=== PATIENT | female | born 1935 | race Caucasian/White ===

== ENCOUNTER → 2018-08-25 10:57 | Outpatient (CLI) | payer MEDICARE, OTHER ==
[~2018-08-25 10:57] MED LIST: ASPIRIN81 MG PO; BETAPACE 80 MG80 MG PO; CLARITIN 10 MG10 MG PO; HYDROCHLOROTHIA25 MG PO; LEVOTHYROXINE125 MCG PO; LISINOPRIL2.5 MG PO; LOPERAMIDE HCL2 MG PO; METFORMIN HCL500 M1 PO; PLAVIX75 MG PO; VITAMIN D5000 UNIT PO; XARELTO15 MG PO; XARELTO20 MG PO
--- NOTE | 2018-08-30 10:45 | ST ---
PATIENT:MICHELE PARK MEDICAL RECORD: [id number] SEX: F LOCATION:[facility] ORDER #: ADMISSION DATE: 08/25/18 AGE OF PATIENT: 83 REFERRING PHYSICIAN: INTERPRETING PHYSICIAN: MAU SHEPPARD MD DATE OF SERVICE: 08/25/2018 PROCEDURE: Nuclear stress test. INDICATION: Angina, abnormal ECG, hypertension, diabetes, atrial fibrillation. The patient was exercised on standard Lexiscan protocol with 33 mCi of sestamibi injected at peak stress, 11 mCi were done previously for rest images. FINDINGS: Gated SPECT reveals preserved ejection fraction at 62% with good wall motioning and thickening and brightening throughout all segments. SPECT imaging Cardiolite was used as myocardial fusion agent. There are reversible changes apically and laterally, this includes basal, mid apical lateral segments as well as the apex itself. The degree of reversibility is mild to moderate. The amount of myocardial involved is moderate. OVERALL IMPRESSION: 1. This is an abnormal nuclear stress test, reversibility apically and laterally. 2. Gated SPECT reveals preserved ejection fraction greater than 60%. In this patient with ongoing symptomatology, the current scan does suggest the presence of hemodynamically significant coronary artery disease. We would proceed with coronary angiography as followup study. TRANSINT:[id number] Voice Confirmation ID: [id number] DOCUMENT ID: [id number] MAU SHEPPARD MD at 1045 CC: [id number] DICTATION DATE: 08/26/18 1020 DIGITAL MARKETING ASSISTANT: 08/27/18 0000 DEP CLI 08/25/[address] [address]
[2018-09-13 08:24] VITALS: BMI 27.5
== END | disposition home or self-care (01) ==
LOC: D.HCCARDIO 10:57
DX: I48.91 Unspecified atrial fibrillation (principal)

== ENCOUNTER 2018-09-06 09:34 | Outpatient (CLI) | payer MEDICARE, OTHER ==
[~2018-09-06] VITALS: Ht 162.6 cm; Wt 72.7 kg
--- NOTE | ~2018-09-06 | HEMODYNAMI ---
PATIENT:MICHELE PARK MEDICAL RECORD: [id number] : 35 LOCATION:[facility] ADMISSION DATE: 09/06/18 Generatedon:09/06/201812:57 Patient name: MICHELE PARK Patient #: [id number] SSN: : Date of study: 09/06/2018 Page: Of Hemodynamic Procedure Report Patient Data Patient Demographics Procedure consent was obtained First Name: MICHELE Gender: Female Last Name: XAVIER : 1935 [facility] Initial: AFTAB Age: 83 year(s) Patient #: [id number] Race: Unknown Additional ID: [id number] Contact details Address: [address] [place] [address] [facility] State: [place] City: [place] Zip code: [address] Past Medical History Allergies Allergen Reaction Date Comments Reported Codeine 09/06/2018 Admission Admission Data Admission Date: 09/06/2018 Admission Time: 9:34 Lab Results Lab Result Date: 09/06/2018 Lab Result Time: 10:05 Biochemistry Name Units Result Min Max BUN mg/dl 28 --(----)-* 7 18 Creatinine mg/dl 1.1 --(--*-)-- 0.6 1.3 CBC Name Units Result Min Max Hematocrit % 40 -*(----)-- 42 54 Hemoglobin g/dl 12.7 -*(----)-- 13.5 17.5 Procedure Procedure Types Cath Procedure Diagnostic Procedure LHC LHC w/Coronaries FFR/IVUS Intra-Coronary IVUS Initial Sedation Charges Moderate Sedation up to 15 minutes PCI Procedure Coronary Stent Coronary Stent Initial Peripheral Cath Diagnostic Procedure Thermal Technician Peripheral Procedures Rqjdi-Yotujcr-Rlh-Off Procedure Description Procedure Date Procedure Date: 09/06/2018 Procedure Start Time: 12:33 Procedure End Time: 12:55 Procedure Staff Name Function Cory Pinon MD Performing Physician Michael Avalos RT Monitor Kevin Barron RN Scada Operator Anne Marie Frank RT Scrub Armaan Lorigan RN Nurse Procedure Data Cath Procedure Fluoroscopy Diagnostic fluoroscopy Total fluoroscopy Time: 4.2 time: 4.2 min min Diagnostic fluoroscopy Total fluoroscopy dose: 680 dose: 680 mGy mGy Contrast Material Contrast Material Type Amount (ml) Isovue 300 97 Entry Location Entry Primary Successful Side Size Upsize Upsize Entry Closure Cortez ccessful Closure Location (Fr) 1 (Fr) 2 (Fr) Remarks Device Remarks Radial Right 6 Fr Mechanical artery Short Compression Femoral Right 5 Fr 6 Fr Exoseal artery Short Estimated blood loss: 10 ml Diagnostic catheters Device Type Used For End Catheter Placement DIAGNOSTIC [place] 110cm 5 Procedure Fr catheter ([id number]) MULTIPACK Pigtail 5 Fr Procedure catheter MULTIPACK JL 4.0 5Fr Procedure catheter MULTIPACK 3DRC 5Fr Procedure catheter Procedure Complications No complications Procedure Medications Medication Administration Route Dosage 0.9% NaCl I.V. 100 ml/hr Oxygen etCO2 Nasal cannula 2 l/min Heparin Flush Bag added to field 2 bags (1000units/500ml NS) Lidocaine 2% added to field 20 Radial Cocktail added to field 1 syringe (Verapomil 2mg/Nitro 400mcg/Heparin 1500units) Versed I.V. 1 mg Fentanyl I.V. 50 mcg Versed I.V. 1 mg Fentanyl I.V. 50 mcg Heparin Bolus I.V. 4000 units Integrilin (Bolus I.V. 6.8 ml 2mg/ml) Integrilin (Bolus wasted 3.2 ml 2mg/ml) Plavix P.O. 600 mg Radial Cocktail I.A. 1 syringe (Verapomil 2mg/Nitro 400mcg/Heparin 1500units) Hemodynamics Rest HGB: 12.7 (g/dl) Heart Rate: 102 (bpm) Snapshots Pre Cath Intra NCS Post Cath Vital Signs Time Heart Resp SPO2 etCO2 NIBP (mmHg) Rhythm Pain Sedation Rate (ipm) (%) (mmHg) Status Level (bpm) 12:03:50 95 19 95 0 136/75(106) A-Fib 0 (11) 10(A) , No pain 12:08:00 105 18 92 0 121/79(99) A-Fib 0 (11) 10(A) , No pain 12:12:08 107 17 98 15.8 130/76(106) A-Fib 0 (11) 10(A) , No pain 12:16:20 84 17 97 10.5 119/72(100) A-Fib 0 (11) 10(A) , No pain 12:20:25 90 16 98 27.1 127/78(99) A-Fib 0 (11) 10(A) , No pain 12:24:35 88 17 99 31.7 120/72(88) A-Fib 0 (11) 10(A) , No pain 12:28:43 88 15 97 35.4 105/73(85) A-Fib 0 (11) 10(A) , No pain 12:32:47 84 15 95 30.2 113/68(93) A-Fib 0 (11) 10(A) , No pain 12:36:53 92 22 95 30.1 99/68(78) A-Fib 0 (11) 10(A) , No pain 12:40:56 89 13 94 35.4 88/60(70) A-Fib 0 (11) 9(A) , No pain 12:44:56 91 12 92 36.9 108/59(86) A-Fib 0 (11) 9(A) , No pain 12:49:02 80 13 95 38.4 109/61(85) A-Fib 0 (11) 9(A) , No pain 12:53:06 97 14 97 36.9 110/72(101) A-Fib 0 (11) 9(A) , No pain Medications Time Medication Route Dose Verified Delivered Reason Not es Effectiveness by by 12:01:52 0.9% NaCl I.V. 100 Armaan Armaan Per physician ml/hr Ed Ward RN RN 12:02:04 Oxygen etCO2 2 l/min Armaan Armaan for low 02 sats Nasal Lorigan Ed cannula RN RN 12:02:15 Heparin Flush added 2 bags Armaan Armaan used for Bag to Lorigan Lorigan procedure (1000units/500ml field MAEYS RN NS) 12:02:25 Lidocaine 2% added 20ml Armaan Armaan for local to vial Lorigan Lorigan anesthetic field MAYES RN 12:02:37 Radial Cocktail added 1 Armaan Armaan used for (Verapomil to syringe Lorigan Lorigan procedure 2mg/Nitro field MAYES RN 400mcg/Heparin 1500units) 12:24:41 Versed I.V. 1 mg Armaan Armaan for sedation Lorigan Lorigan RN RN 12:24:51 Fentanyl I.V. 50 mcg Armaan Armaan for sedation Ed Ward RN RN 12:34:03 Versed I.V. 1 mg Armaan Armaan for sedation Ed Ward RN RN 12:34:07 Fentanyl I.V. 50 mcg Armaan Armaan for sedation Ed Ward RN RN 12:34:09 Radial Cocktail I.A. 1 Armaan Cory for (Verapomil syringe Ed Pinon MD vasodilation 2mg/Nitro RN 400mcg/Heparin 1500units) 12:47:53 Heparin Bolus I.V. 4000 Armaan Armaan for units Ed Ward anticoagulation RN RN 12:48:10 Integrilin I.V. 6.8 ml Armaan Armaan for (Bolus 2mg/ml) Ed Ward antiplatelet RN RN therapy 12:53:29 Integrilin wasted 3.2 ml Armaan Armaan to sharp's (Bolus 2mg/ml) Ed Ward RN RN 12:53:39 Plavix P.O. 600 mg Armaan Armaan for Ed Ward antiplatelet RN RN therapy Procedure Log Time Note 11:45:56 Kevin Barron RN sent for patient. Start room use. 11:48:45 Signed procedure consent form obtained from patient. 11:48:57 Time tracking: Regular hours (M-F 7:00 - 5:00) 11:49:00 Plan of Care:Hemodynamics will remain stable., Cardiac rhythm will remain stable., Comfort level will be maintained., Respiratory function will remain adequate., Patient/ family verbilizes understanding of procedure., Procedure tolerated without complication., Recovers from procedure without complications.. 11:49:01 Diagnostic Cath status Elective 11:49:08 H&P Date Dictated: 08/17/2018 Within 30 days and on chart., H&P Addendum completed by physician on day of procedure. (MUST COMPLETE FOR ALL OUTPATIENTS). 11:49:26 Patient allergic to Codeine 11:51:50 Patient received from Pre/Post Procedure Room to CCL 2 Alert and oriented. Tansferred to table in Supine position. 11:51:52 Warm blankets applied, and sandee hugger turned on for patient comfort. 11:51:52 Correct patient and procedure confirmed by team. 11:51:56 ECG and BP/O2 sat monitors applied to patient. 12:01:52 0.9% NaCl 100 ml/hr I.V. was administered by Armaan Ward RN; Per physician; 12:02:04 Oxygen 2 l/min etCO2 Nasal cannula was administered by Armaan Ward RN; for low 02 sats; 12:02:15 Heparin Flush Bag (1000units/500ml NS) 2 bags added to field was administered by Armaan Ward RN; used for procedure; 12:02:25 Lidocaine 2% 20ml vial added to field was administered by Armaan Ward RN; for local anesthetic; 12:02:37 Radial Cocktail (Verapomil 2mg/Nitro 400mcg/Heparin 1500units) 1 syringe added to field was administered by Armaan Ward RN; used for procedure; 12:02:43 Vital chart was started 12:04:59 Baseline sample Acquired. 12:05:10 Baseline sample Acquired. 12:05:18 Rhythm: atrial fibrillation 12:05:19 Full Disclosure recording started 12:05:20 Pre-procedure instructions explained to patient. 12:05:21 Pre-op teaching completed and patient verbalized understanding. 12:05:22 Family in waiting room. 12:05:24 Patient NPO since Midnight. 12:05:28 Is the patient allergic to Iodine/contrast media? No. 12:05:29 Is patient on blood thinner?Yes 12:05:36 If diabetic: On Metformin? Yes 12:05:38 If on Metformin: Last Dose? 09/04/2018 12:05:41 Previous problem with sedation/anesthesia? No ? 12:05:43 Snore? No 12:05:44 Sleep apnea? No 12:05:45 Deviated septum? No 12:05:45 Opens mouth fully? Yes 12:05:46 Sticks out tongue? Yes 12:05:48 Airway obstruction? No ? 12:05:51 Dentures? No ? 12:05:54 Modified Nazario's test Ulnar < 7 seconds 12:05:55 Patient pain scale 0/10 ?. 12:06:01 IV patent on arrival in left wrist with 0.9% NaCl at [facility]. 12:06:45 Lab Result : BUN 28 mg/dl 12:06:45 Lab Result : Creatinine 1.1 mg/dl 12:06:45 Lab Result : Hemoglobin 12.7 g/dl 12:06:45 Lab Result : Hematocrit 40 % 12:06:47 Lab results completed and on chart. 12:06:51 Right Radial & Right Groin area was prepped with chlora-prep and draped in sterile fashion 12:06:52 Alarms reviewed by R. N. 12:06:53 Sharps counted by scrub and verified by R.N. 12:06:55 Use device set Radial Dx or PCI 12:06:57 ACIST Syringe (80694) opened to sterile field. 12:06:57 Medline Cath Pack ([id number]) opened to sterile field. 12:06:58 Bag Decanter (2002S) opened to sterile field. 12:06:58 ACIST Hand Control (39068) opened to sterile field. 12:06:59 ACIST Manifold (77072) opened to sterile field. 12:06:59 Tegaderm 4 x 4 (1626W) opened to sterile field. 12:07:00 MBrace Wrist Support ([id number]) opened to sterile field. 12:07:01 SHEATH 6FR Slender (98-1060) opened to sterile field. 12:07:02 DIAGNOSTIC WIRE .035 260cm J wire (112691) opened to sterile field. 12:10:37 Zero performed for pressure channel P1 12:23:07 Physician arrived 12:23:07 --------ALL STOP TIME OUT------ 12:23:08 Final Timeout: patient, procedure, and site verified with staff and physician. All members of the team are in agreement. 12:23:09 Right groin site verified by team. 12:23:13 Fire Safety Assessment: A--An alcohol-based skin anteseptic being used preoperatively., C--Open oxygen or nitrous oxide is being used., D--An ESU, laser, or fiber-optic light is being used. 12:23:16 Physical assessment completed. ASA score P 2 - A patient with mild systemic disease as per Cory Pinon MD. 12:23:19 Sedation plan: IV Moderate Sedation Medication:Versed, Fentanyl 12:24:41 Versed 1 mg I.V. was administered by Armaan Ward RN; for sedation; 12:24:51 Fentanyl 50 mcg I.V. was administered by Armaan Ward RN; for sedation; 12:33:14 Procedure started. 12:33:17 Local anesthetic to right radial artery with Lidocaine 2% by Cory Pinon MD.INITIAL ACCESS ONLY 12:33:23 A 6 Fr Short sheath was inserted into the Right Radial artery 12:34:03 Versed 1 mg I.V. was administered by Armaan Ward RN; for sedation; 12:34:07 Fentanyl 50 mcg I.V. was administered by Armaan Ward RN; for sedation; 12:34:09 Radial Cocktail (Verapomil 2mg/Nitro 400mcg/Heparin 1500units) 1 syringe I.A. was administered by Cory Pinon MD; for vasodilation; 12:34:53 A DIAGNOSTIC [place] 110cm 5 Fr catheter ([id number]) was advanced over the wire and used for Procedure. 12:36:40 Catheter removed. 12:36:44 unable to advance catheter. Moving to femoral approach. 12:36:50 Use device set Multipack Set 12:36:55 SHEATH 5FR [place] (LAT143) opened to sterile field. 12:36:56 DIAGNOSTIC Multipack 5Fr catheter set ([id number]) opened to sterile field. 12:37:02 Local anesthetic to right femoral artery with Lidocaine 2% by Cory Pinon MD.ADDITIONAL ACCESS 12:37:12 A 5 Fr sheath was inserted into the Right Femoral artery 12:37:19 A MULTIPACK Pigtail 5 Fr catheter was advanced over the wire and used for Procedure. 12:37:30 Procedure type changed to Cath procedure, Diagnostic procedure, LHC, LHC w/Coronaries, FFR/IVUS, Intra-Coronary IVUS Initial, Sedation Charges, Moderate Sedation up to 15 minutes, PCI procedure, Coronary Stent, Coronary Stent Initial, Peripheral Cath Diagnostic Procedure, Thermal Technician Peripheral Procedures, Gnypy-Sswlgsy-Ksx-Off 12:39:04 LV gram done using DONOVAN 12:39:07 Injector settings: Ml/sec: 10, Volume: 20, 12:39:09 LV hemodynamics recorded. 12:39:30 EF : 60 % 12:39:43 Abdominal angiogram w/ runoff was performed. 12:40:09 Left leg runoff performed. 12:40:10 Right leg runoff performed. 12:40:44 Catheter exchanged over wire. 12:40:51 A MULTIPACK JL 4.0 5Fr catheter was advanced over the wire and used for Procedure. 12:41:36 LCA angiography performed. 12:42:14 Catheter exchanged over wire. 12:42:19 A MULTIPACK 3DRC 5Fr catheter was advanced over the wire and used for Procedure. 12:43:03 RCA angiography performed. 12:43:43 SHEATH 6FR [place] (DNV954) opened to sterile field. 12:43:52 INFLATOR Merit BasixCompak (XU0028) opened to sterile field. 12:44:05 CHOICE PT Extra Support 182cm wire ([id number]) opened to sterile field. 12:44:55 Catheter removed. 12:45:01 Sheath upsized to a 6 Fr Short. 12:45:57 GUIDE 6FR AR 2.0 SH catheter ([id number]) opened to sterile field. 12:45:57 Gary [place] Eagley[place] IVUS Catheter (22345U) opened to sterile field. 12:46:07 6 Fr AR 2 SH guide catheter was inserted over the wire 12:46:12 CHOICE PT ES wire advanced. 12:46:55 Wire advanced across lesion. 12:46:57 IVUS catheter advanced over wire. 12:47:27 IVUS pass to RCA lesion performed. 12:47:53 Heparin Bolus 4000 units I.V. was administered by Armaan Ward RN; for anticoagulation; 12:48:10 Integrilin (Bolus 2mg/ml) 6.8 ml I.V. was administered by Armaan Ward RN; for antiplatelet therapy; 12:49:04 IVUS catheter removed over wire. 12:49:47 Inflate balloon Inflation number: 1 A INTEGRITY RX 3.5 x 15 stent ([id number]) was prepped and advanced across the Mid RCA, then inflated to 13 BENJI for 0:10 (min:sec). 12:49:55 Stent catheter was removed intact over wire. 12:49:56 Wire removed. 12:49:57 Guide catheter removed. 12:50:46 TR BAND Standard ([id number]) opened to sterile field. 12:50:47 EXOSEAL 6Fr (EX600) opened to sterile field. 12:51:02 Sheath removed intact; hemostasis achieved with Exoseal to the Right Femoral artery. 12:51:10 Sheath removed intact; hemostasis achieved with Mechanical Compression to the Right Radial artery. 12:51:11 Procedure ended.(Physican Out) 12:53:29 Integrilin (Bolus 2mg/ml) 3.2 ml wasted was administered by Armaan Ward RN; to sharp's; 12:53:39 Plavix 600 mg P.O. was administered by Armaan Ward RN; for antiplatelet therapy; 12:53:40 Fluoroscopy time 04.20 minutes. 12:53:51 Fluoroscopy dose: 680 mGy 12:53:51 Flurop Dose total: 680 12:53:57 Contrast amount:Isovue 300 97ml. 12:53:58 Sharps counted by scrub and verified by R.N. 12:54:04 TR band inflated with 12cc of air. 12:54:05 Insertion/operative site no bleeding no hematoma. 12:54:07 Post-op/insertion site Right Femoral artery dressed using a 4 x 4 and Tegaderm. 12:54:10 Post right femoral artery:stable, soft, clean and dry 12:54:12 Post Procedure Pulses reassessed and unchanged 12:54:15 Post-procedure physical assessment completed. ASA score P 2 - A patient with mild systemic disease as per Cory Pinon MD. 12:54:23 Post procedure rhythm: unchanged. 12:54:25 Estimated blood loss: 10 ml 12:54:26 Post procedure instruction explained to patient.Patient verbalizes understanding. 12:54:26 Patient needs reinforcement of post procedure teaching. 12:55:26 Procedure and supply charges have been captured, reviewed, submitted and are correct. 12:55:32 Procedure Complication : No complications 12:55:34 Vital chart was stopped 12:55:34 See physician's report for complete and final results. 12:55:36 Report given to Pre/Post Procedure Room. 12:55:39 Patient transfered to Pre/Post Procedure Room with Stretcher. 12:55:41 Procedure ended. 12:55:41 Full Disclosure recording stopped 12:55:45 End room use (Document Last) Intervention Summary Intervention Notes Time ActionType Lesion and Equipment Action# Pressure Duration Attributes Used 12:49:47 Inflate Mid RCA INTEGRITY RX 1 13 00:10 balloon 3.5 x 15 stent ([id number]) Device Usage Item Name Manufacture Quantity Catalog Number Hospital Part Current Mini mal Lot# / Charge Number Stock Stock Serial# Code ACIST Acist 1 66130 410542 825661 266913 20 Syringe Medical (88709) Systems Inc Medline Cath Medline 1 [id number] 617071 25893 116097 5 Pack ([id number]) Bag Decanter Microtek 1 2001S 142405 87717 256118 5 (2001S) Medical Inc. ACIST Hand Acist 1 59076 260093 713144 952693 5 Control Medical (42961) Systems Inc ACIST Acist 1 72170 006621 834409 667544 5 Manifold Medical (40818) Systems Inc Tegaderm 4 x 3M 1 1626W 887545 343281 348650 5 4 (1626W) MBrace Wrist Advanced 1 140-0250-00 048704 81334 202628 5 Support Vascular ([id number]) Dynamics SHEATH 6FR Terumo 1 [id number] 569150 106096 305882 5 Slender (80-1060) DIAGNOSTIC St Jayce 1 819118 610238 239461 067725 30 WIRE .035 260cm J wire (222897) DIAGNOSTIC Terumo 1 40-5013 622091 096810 577701 5 [place] 110cm 5 Fr catheter (946912) SHEATH 5FR Terumo 1 HXB230 212867 174802 022383 5 [place] (EFG797) DIAGNOSTIC Cardinal 1 DA2731 788773 03923 278909 30 Multipack Health 5Fr catheter set (OP4203) MULTIPACK Cardinal 1 922653 5 Pigtail 5 Fr Health catheter MULTIPACK JL Cardinal 1 970725 5 4.0 5Fr Health catheter MULTIPACK Cardinal 1 614167 5 3DRC 5Fr Health catheter SHEATH 6FR Terumo 1 CZP475 956322 375295 260027 40 [place] (LIL129) INFLATOR Merit 1 GF1059 465688 078399 164973 15 [place] Medical BasixCompak (NS5943) CHOICE PT [place] 1 [id number] 739120 857209 957363 5 Extra Scientific Support 182cm wire (1601443S0) GUIDE 6FR AR Medtronic 1 [id number] 112697 19159 131329 1 2.0 SH catheter ([id number]) Gary Gary 1 56454Y 836781 004432 135229 8 [place] Eagley[place] IVUS Catheter (64113Z) INTEGRITY RX Medtronic 1 [id number] 896741 561655 206051 5 [id number] 3.5 x 15 stent ([id number]) TR BAND Terumo 1 [id number] 052310 741874 414772 40 Standard ([id number]) EXOSEAL 6Fr Cardinal 1 EX600 261214 609876 564165 10 (EX600) Health Signature Audit [place] Stage Time Signature Unsigned Intra-Procedure 09/06/2018 Michael Avalos 12:56:58 PM RT(R) Signatures Monitor : Michael Avalos RT Signature : Date : Time : [address] [address]
[2018-09-06] MEDS ORDERED: LEVOTHYROXINE125 MCG PO (09:56)
[2018-09-06] MEDS ORDERED: METFORMIN HCL500 M1 PO (09:57)
[2018-09-06] MEDS ORDERED: VITAMIN D5000 UNIT PO (09:57)
[2018-09-06] MEDS ORDERED: HYDROCHLOROTHIA25 MG PO (09:57)
[2018-09-06] MEDS ORDERED: CLARITIN 10 MG10 MG PO (09:57)
[2018-09-06] MEDS ORDERED: LOPERAMIDE HCL2 MG PO (09:58)
[2018-09-06] MEDS ORDERED: LISINOPRIL2.5 MG PO (09:58)
[2018-09-06] MEDS ORDERED: XARELTO15 MG PO (09:59)
[2018-09-06] MEDS ORDERED: BETAPACE 80 MG80 MG PO (09:59)
[2018-09-06 10:11] VITALS: BP 136/78; Ht 162.6 cm; Wt 72.7 kg
[2018-09-06 10:29] LABS: ANION GAP 12.3 mmol/L (8-16); CALCIUM 9.1 mg/dL (8.5-10.1); CARBON DIOXIDE 30.3 mmol/L (21.0-32.0); CREATININE - SERUM 1.1 mg/dL (0.6-1.3); POTASSIUM - SERUM 3.6 mmol/L (3.5-5.1)
[2018-09-06 11:44] LABS: BASOPHILS 0.1 % (0-2); EOSINOPHILS 1.5 % (0-7); HEMOGLOBIN 12.7 g/dL (12-16); IMMATURE GRANULOCYTES 0.3 % (0-5); LYMPHOCYTES 14.8 % (15-50); MCH 27.7 pg (26.0-34.0); MCHC 31.8 g/dL (31.0-37.0); MCV 87.3 fL (80.0-100.0); MEAN PLATELET VOLUME 11.5 fL (7.4-10.4); MONOCYTES 10.7 % (2-11); NEUTROPHILS 72.6 % (40-80); PLATELET COUNT 314 10x3/uL (130-400); RBC 4.58 10x6/uL (4.00-5.40); RDW 14.9 % (11.5-14.5); WBC 7.8 10x3/uL (4.8-10.8)
[2018-09-06] MEDS ORDERED: PLAVIX75 MG PO (13:18)
--- NOTE | 2018-09-06 13:25 | NUR ---
2L NC, NO RESP DISTRESS. RIGHT WRIST TR BAND AND RIGHT GROIN 6F EXOSEAL CDI, NO BLEEDING OR HEMATOMA NOTED TO EITHER SITE. NO C/O PAIN OR NAUSEA. VSS. FAMILY AT BEDSIDE, CALL LIGHT WITHIN REACH.
--- NOTE | 2018-09-06 13:55 | NUR ---
RIGHT WRIST TR BAND AND RIGHT GROIN 6F EXOSEAL CDI, NO BLEEDING OR HEMATOMA NOTED TO EITHER SITE. 2L NC WITH NO RESP DISTRESS. DENIES ANY NEEDS. VSS. WILL CONTINUE TO MONITOR.
--- NOTE | 2018-09-06 14:10 | NUR ---
RESTING QUIETLY WITH EYES CLOSED. RIGHT WRIST TR BAND AND RIGHT GROIN 6F EXOSEAL CDI, NO BLEEDING OR HEMATOMA NOTED TO EITHER SITE. DENIES ANY NEEDS. VSS. WILL CONTINUE TO MONITOR.
--- NOTE | 2018-09-06 14:40 | NUR ---
CONTINUES TO REST COMFORTABLY WITH NO C/O. RIGHT WRIST TR BAND AND RIGHT GROIN 6F EXOSEAL CDI, NO BLEEDING OR HEMATOMA NOTED. NO NEEDS. VOICED. VSS. CALL LIGHT WITHIN REACH.
--- NOTE | 2018-09-06 16:15 | NUR ---
HOB ELEVATED 30 DEGREES. RIGHT GROIN 6F EXOSEAL CDI, NO BLEEDING NOTED. 3CC OF AIR REMOVED FROM TR BAND WITH NO BLEEDING NOTED. REFUSED FOOD AT THIS TIME. VSS. WILL CONTINUE TO MONITOR CLOSELY.
--- NOTE | 2018-09-06 16:30 | NUR ---
3CC OF AIR REMOVED FROM TR BAND WITH NO BLEEDING NOTED.
--- NOTE | 2018-09-06 16:45 | NUR ---
2CC OF AIR REMOVED FROM TR BAND WITH NO BLEEDING NOTED. LEFT PIV D/C'D WITH CATHETER INTACT, BAND AID TO SITE. UP TO BEDSIDE TO GET DRESSED.
--- NOTE | 2018-09-06 16:55 | NUR ---
REMAINING AIR REMOVED FROM TR BAND WITH N OBLEEDING NOTED. DRESSING PLACED TO SITE. DISCHARGE INSTRUCTIONS GIVEN ALONG WITH PLAVIX PRESCRIPTION, VERBALIZED UNDERSTANDING.
--- NOTE | 2018-09-06 17:10 | NUR ---
TAKEN OUT VIA WHEELCHAIR BY CATH REHAB MANAGER. LEFT FACILITY WITH FAMILY AND ALL PERSONAL BELONGINGS.
--- NOTE | 2018-09-13 11:18 | OP ---
PATIENT NAME: MICHELE PARK MEDICAL RECORD: [id number] :35 LOCATION:[facility] ADMISSION DATE: SURGEON: MAU SHEPPARD MD DATE OF OPERATION: 09/06/2018 PROCEDURES: 1. Aortofemoral runoff. 2. Abdominal aortography. INDICATION: Claudication and peripheral vascular disease. PROCEDURE PERFORMED: After informed consent was obtained and after a detailed description of risks, benefits as well as alternative therapies the patient elected to proceed with angiogram and aortofemoral runoff. The right femoral area was prepped and draped in normal sterile fashion. Right femoral artery had a preexisting sheath from cardiac intervention. All catheters exchanged through this sheath. FINDINGS: Abdominal aortography was performed. The catheter was pulled down for aortofemoral runoff. Abdominal aortography reveals no significant abdominal aortic disease, no dissection or annulus formation. RIGHT LEG: A. Iliac: The common internal and external iliacs have moderate irregularities, but no flow-limiting stenosis. B. Femoral system: The common and deep femoral are widely patent. Superficial femoral was totally occluded from the ostium all the way to the extreme distal end of this. This fills via collaterals off the deep femoral system. C. The popliteal infrapopliteal vessels are diffusely diseased, giving 2-vessel runoff through the peroneal and posterior tibial. LEFT LEG: A. Iliac: The common internal and external iliacs have moderate irregularities, but no flow-limiting stenosis. B. Femoral system: The common and deep femoral are widely patent. Superficial femoral was totally occluded from the ostium all the way to the extreme distal end of this. This fills via collaterals off the deep femoral system. C. The popliteal infrapopliteal vessels are diffusely diseased, giving 2-vessel runoff through the peroneal and posterior tibial. 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 TRANSINT:[id number] Voice Confirmation ID: [id number] DOCUMENT ID: [id number] MAU SHEPPARD MD at 1118 CC: [id number] DICTATION DATE: 09/06/18 1300 SPOUT POSITIONER: 09/06/18 1331 DEP CLI 09/06/18 [place] [id number] [place], [place] [id number]
--- NOTE | 2018-09-13 11:18 | OP ---
PATIENT NAME: MICHELE PARK MEDICAL RECORD: [id number] :35 LOCATION:D.CAT ADMISSION DATE: SURGEON: MAU SHEPPARD MD DATE OF OPERATION: 09/06/2018 DATE OF SERVICE: 09/06/2018 PROCEDURES: 1. PTCA stent RCA. 2. Intravascular ultrasound RCA. 3. Left heart catheterization. 4. Selective coronary angiography. 5. Left ventriculogram. INDICATION: Angina and coronary artery disease. PROCEDURE IN DETAIL: After informed consent was obtained and after a detailed description of the risks, benefits as well as alternative therapies, the patient elected to proceed with angiogram and angioplasty. The right femoral area was prepped and draped in normal sterile fashion. Right femoral artery was cannulated via modified Seldinger technique with placement of 6-Italian sheath. All catheters exchanged through this sheath. FINDINGS: Left ventriculogram was performed in the standard 30-degree DONOVAN view, reveals good cardiac wall motion throughout all segments. Overall ejection fraction estimated at 65%. SELECTIVE CORONARY ANGIOGRAPHY: 1. Left main has a questionable stenosis in the mid vessel that would be better delineated by intravascular ultrasound. 2. Left anterior descending has 90% stenosis in the mid vessel. 3. Left circumflex has at least 70% stenosis in the mid vessel. 4. Right coronary has a hazy area of stenosis that was questionable. Intravascular ultrasound revealed this is greater than 70%. PTCA STENT OF THE RCA: The stent used was a 3.5 x 15-mm Integrity. Result was 0% residual stenosis. OVERALL IMPRESSION: Successful percutaneous transluminal coronary angioplasty stent of the right coronary artery going from greater than 70% initial stenosis to 0% residual. PLAN: PTCA stent of the LAD and circumflex in the near future. TRANSINT:[id number] Voice Confirmation ID: [id number] DOCUMENT ID: [id number] MUA SHEPPARD MD at 1118 CC: [id number] DICTATION DATE: 09/06/18 1300 TECHNICAL ADMINISTRATIVE ASSISTANT: 09/06/18 1331 DEP CLI 09/06/18 [place] [id number] [place] [id number]
== END 2018-09-06 17:10 | disposition home or self-care (01) ==
LOC: D.CATH 09:34
PROVIDERS: Internal Medicine Interventional Cardiology
DX: I25.119 Atherosclerotic heart disease of native coronary artery with unspecified angina pectoris (principal); I70.213 Atherosclerosis of native arteries of extremities with intermittent claudication, bilateral legs; I70.92 Chronic total occlusion of artery of the extremities; Z01.812 Encounter for preprocedural laboratory examination

== ENCOUNTER 2018-09-13 07:50 | Outpatient (CLI) | payer MEDICARE, OTHER ==
[~2018-09-13] VITALS: Ht 162.6 cm; Wt 72.7 kg
--- NOTE | ~2018-09-13 | HEMODYNAMI ---
PATIENT:MICHELE PARK MEDICAL RECORD: [id number] : 35 LOCATION:TAVO ADMISSION DATE: 09/13/18 Generatedon:09/13/201811:32 Patient name: MICHELE PARK Patient #: [id number] SSN: : Date of study: 09/13/2018 Page: Of Hemodynamic Procedure Report Patient Data Patient Demographics Procedure consent was obtained First Name: MICHELE Gender: Female Last Name: XAVIER : 1935 [facility] Initial: AFTAB Age: 83 year(s) Patient #: [id number] Race: Unknown Additional ID: [id number] Contact details Address: [address] [place] [address] [facility] State: [place] City: [place] Zip code: [address] Past Medical History Allergies Allergen Reaction Date Comments Reported Codeine 09/06/2018 Other allergy 09/13/2018 PCN, POTASSIUM, CODEINE, HYDROCODONE Admission Admission Data Admission Date: 09/13/2018 Admission Time: 7:50 Lab Results Lab Result Date: 09/13/2018 Lab Result Time: 0:00 Biochemistry Name Units Result Min Max BUN mg/dl 20 --(----)*- 7 18 Creatinine mg/dl 1 --(--*-)-- 0.6 1.3 CBC Name Units Result Min Max Hematocrit % 36.5 *-(----)-- 42 54 Hemoglobin g/dl 11.6 *-(----)-- 13.5 17.5 Procedure Procedure Types Cath Procedure Diagnostic Procedure FFR/IVUS Intra-Coronary IVUS Initial PCI Procedure Coronary Stent Coronary Stent Initial x2 Procedure Description Procedure Date Procedure Date: 09/13/2018 Procedure Start Time: 11:13 Procedure End Time: 11:30 Procedure Staff Name Function Cory Pinon MD Performing Physician Anne Marie Frank RT Monitor Michael Avalos RT Scrub Neptali Roland RN Nurse Kevin Barron RN Therapeutic Dietitian Procedure Data Cath Procedure Fluoroscopy Diagnostic fluoroscopy Total fluoroscopy Time: 5.4 time: 5.4 min min Diagnostic fluoroscopy Total fluoroscopy dose: 545 dose: 545 mGy mGy Contrast Material Contrast Material Type Amount (ml) Isovue 300 107 Entry Location Entry Primary Successful Side Size Upsize Upsize Entry Closure Succes sful Closure Location (Fr) 1 (Fr) 2 (Fr) Remarks Device Remarks Femoral Left 6 Fr Exoseal artery Short Estimated blood loss: 10 ml Procedure Complications No complications Procedure Medications Medication Administration Route Dosage Oxygen etCO2 Nasal cannula 2 l/min Lidocaine 2% added to field 20 Heparin Flush Bag added to field 2 bags (1000units/500ml NS) 0.9% NaCl I.V. 100 ml/hr Versed I.V. 1 mg Fentanyl I.V. 50 mcg Versed I.V. 1 mg Fentanyl I.V. 50 mcg Heparin Bolus I.V. 4000 units Versed I.V. 1 mg Hemodynamics Rest HGB: 11.6 (g/dl) Heart Rate: 103 (bpm) Snapshots Pre Cath Intra NCS Post Cath Vital Signs Time Heart Resp SPO2 etCO2 NIBP (mmHg) Rhythm Pain Sedation Rate (ipm) (%) (mmHg) Status Level (bpm) 10:52:48 96 15 97 12.8 152/90(107) A-Fib 0 (11) 10(A) , No pain 10:57:10 98 15 97 14.3 145/75(117) A-Fib 0 (11) 10(A) , No pain 11:01:26 98 17 97 14.3 148/90(120) A-Fib 0 (11) 10(A) , No pain 11:05:42 98 14 94 0 136/78(104) A-Fib 0 (11) 10(A) , No pain 11:09:48 102 12 93 0 125/83(95) A-Fib 0 (11) 9(A) , No pain 11:14:00 88 14 94 15.8 127/85(107) A-Fib 0 (11) 9(A) , No pain 11:18:14 102 13 94 0 126/73(93) A-Fib 0 (11) 10(A) , No pain 11:22:28 96 14 98 34.7 133/78(103) A-Fib 0 (11) 9(A) , No pain 11:26:42 87 15 97 0 122/75(86) A-Fib 0 (11) 10(A) , No pain Medications Time Medication Route Dose Verified Delivered Reason Notes Effectiveness by by 10:53:12 Oxygen etCO2 2 Cory Buffie used for Nasal l/min Kathrin Roland RN procedure cannula 10:53:19 Lidocaine 2% added 20ml Cory Cory for local to vial Kathrin Pinon MD anesthetic field 10:53:26 Heparin Flush added 2 Cory Cory used for Bag to bags Kathrin Pinon MD procedure (1000units/500ml field NS) 10:53:35 0.9% NaCl I.V. 100 Cory Buffie Per physician ml/hr Kathrin Roland RN 11:06:15 Versed I.V. 1 mg Ocry Buffie for sedation Kathrin Roland RN 11:06:21 Fentanyl I.V. 50 Cory Buffie for sedation mcg Kathrin Roland RN 11:09:46 Versed I.V. 1 mg Cory Buffie for sedation Kathrin Roland RN 11:09:50 Fentanyl I.V. 50 Cory Buffie for sedation mcg Kathrin Roland RN 11:14:24 Heparin Bolus I.V. 4000 Cory Buffie for verif ied units Kathrin Roland RN anticoagulation with dr pinon 11:22:20 Versed I.V. 1 mg Cory Buffie for sedation Kathrin Roland RN Procedure Log Time Note 10:12:53 Signed procedure consent form obtained from patient. 10:12:55 Diagnostic Cath status Elective 10:12:55 Time tracking: Regular hours (M-F 7:00 - 5:00) 10:13:00 Plan of Care:Hemodynamics will remain stable., Cardiac rhythm will remain stable., Comfort level will be maintained., Respiratory function will remain adequate., Patient/ family verbilizes understanding of procedure., Procedure tolerated without complication., Recovers from procedure without complications.. 10:13:05 H&P Date Dictated: 09/13/2018 New H&P dictated by physician.. 10:14:34 Patient allergic to Other allergyPCN, POTASSIUM, CODEINE, HYDROCODONE 10:15:09 Lab Result : Creatinine 1 mg/dl 10:15:09 Lab Result : BUN 20 mg/dl 10:15:09 Lab Result : Hemoglobin 11.6 g/dl 10:15:09 Lab Result : Hematocrit 36.5 % 10:36:17 Kevin Barron RN sent for patient. Start room use. 10:41:40 Patient received from Pre/Post Procedure Room to CCL 1 Alert and oriented. Tansferred to table in Supine position. 10:41:41 Warm blankets applied, and sandee hugger turned on for patient comfort. 10:41:41 Correct patient and procedure confirmed by team. 10:41:42 ECG and BP/O2 sat monitors applied to patient. 10:51:34 Vital chart was started 10:51:35 Baseline sample Acquired. 10:51:38 Rhythm: atrial fibrillation 10:51:39 Full Disclosure recording started 10:51:40 Pre-procedure instructions explained to patient. 10:51:40 Pre-op teaching completed and patient verbalized understanding. 10:51:41 Family in patients room. 10:51:43 Patient NPO since Midnight. 10:51:44 Is patient on blood thinner?Yes 10:51:46 ACC The patient was administered the following blood thiners within the last 24 hours: ACCPlavix 10:51:47 Patient diabetic? Yes. 10:51:48 If diabetic: On Metformin? Yes 10:51:53 If on Metformin: Last Dose? 09/10/2018 10:51:56 Previous problem with sedation/anesthesia? No ? 10:51:56 Snore? Yes 10:51:57 Sleep apnea? No 10:51:58 Deviated septum? No 10:51:59 Opens mouth fully? Yes 10:51:59 Sticks out tongue? Yes 10:52:02 Airway obstruction? No ? 10:52:06 Dentures? Yes IN TIGHT 10:52:16 Pre procedure: left dorsailis pedis pulse 1+ Palpable, but thready & weak; easily obliterated 10:52:19 Patient pain scale 0/10 ?. 10:52:24 IV patent on arrival in left antecubital with 0.9% NaCl at [facility]. 10:52:26 Lab results completed and on chart. 10:52:30 Left groin area was prepped with chlora-prep and draped in sterile fashion 10:52:30 Alarms reviewed by R. N. 10:52:31 Sharps counted by scrub and verified by R.N. 10:52:42 Use device set CATH PACK 10:52:44 ACIST Syringe (62903) opened to sterile field. 10:52:44 ACIST Hand Control (90417) opened to sterile field. 10:52:44 ACIST Manifold (67364) opened to sterile field. 10:52:45 Medline Cath Pack ([id number]) opened to sterile field. 10:52:45 Bag Decanter (2002S) opened to sterile field. 10:52:46 DIAGNOSTIC WIRE .035 260cm J wire (671811) opened to sterile field. 10:53:00 SHEATH 6FR [place] (YES020) opened to sterile field. 10:53:00 INFLATOR Merit BasixCompak (UW8127) opened to sterile field. 10:53:00 CHOICE PT Extra Support 182cm wire ([id number]) opened to sterile field. 10:53:12 Oxygen 2 l/min etCO2 Nasal cannula was administered by Neptali Roland RN; used for procedure; 10:53:19 Lidocaine 2% 20ml vial added to field was administered by Cory Pinon MD; for local anesthetic; 10:53:26 Heparin Flush Bag (1000units/500ml NS) 2 bags added to field was administered by Cory Pinon MD; used for procedure; 10:53:35 0.9% NaCl 100 ml/hr I.V. was administered by Neptali Roland RN; Per physician; 10:55:12 Bodfish Derry Eagleye IVUS Catheter (03579Y) opened to sterile field. 10:55:13 GUIDE 6FR XBLAD 3.5 SH catheter ([id number]) opened to sterile field. 10:59:25 Zero performed for pressure channel P1 11:05:12 --------ALL STOP TIME OUT------ 11:05:13 Final Timeout: patient, procedure, and site verified with staff and physician. All members of the team are in agreement. 11:05:15 Left groin site verified by team. 11:05:18 Fire Safety Assessment: A--An alcohol-based skin anteseptic being used preoperatively., C--Open oxygen or nitrous oxide is being used., D--An ESU, laser, or fiber-optic light is being used. 11:05:21 Physical assessment completed. ASA score P 2 - A patient with mild systemic disease as per Cory Pinon MD. 11:05:25 Sedation plan: IV Moderate Sedation Medication:Versed, Fentanyl 11:06:15 Versed 1 mg I.V. was administered by Neptali Roland RN; for sedation; 11:06:21 Fentanyl 50 mcg I.V. was administered by Neptali Roland RN; for sedation; 11::46 Versed 1 mg I.V. was administered by Neptali Roland RN; for sedation; 11::50 Fentanyl 50 mcg I.V. was administered by Neptali Roland RN; for sedation; 11::47 Procedure started. 11:13:09 Local anesthetic to left femerol artery with Lidocaine 2% by Cory Pinon MD.INITIAL ACCESS ONLY 11:13:18 A 6 Fr Short sheath was inserted into the Left Femoral artery 11:13:31 6 Fr XBLAD 3.5 SH guide catheter was inserted over the wire 11:14:24 Heparin Bolus 4000 units I.V. was administered by Neptali Roland RN; for anticoagulation; verified with dr pinon 11:15:11 CHOICE ES 182 wire advanced. 11:15:16 Wire advanced across lesion. 11:16:10 IVUS catheter advanced over wire. 11:16:33 IVUS PASS TO LMCA AND CIRC LESION PERFORMED 11:16:38 IVUS catheter removed over wire. 11:18:01 Place stent Inflation Number: 1 A DONOVAN RX 3.0 x 15 stent ([id number]) was prepped and advanced across the Prox CX. The stent was deployed at 13 BENJI for 0:10 (min:sec). 11:18:33 Stent catheter was removed intact over wire. 11:18:38 Wire redirected to LAD. 11:21:54 Place stent Inflation Number: 1 A DONOVAN RX 3.0 x 15 stent ([id number]) was prepped and advanced across the Mid LAD. The stent was deployed at 13 BENJI for 0:10 (min:sec). 11:22:20 Versed 1 mg I.V. was administered by Neptali Roland RN; for sedation; 11:22:37 Stent catheter was removed intact over wire. 11:23:23 Procedure type changed to Cath procedure, Diagnostic procedure, FFR/IVUS, Intra-Coronary IVUS Initial, PCI procedure, Coronary Stent, Coronary Stent Initial x2 11:24:09 Place stent Inflation Number: 1 A DONOVAN RX 3.5 x 08 stent ([id number]) was prepped and advanced across the LMCA. The stent was deployed at 13 BENJI for 0:10 (min:sec). 11:24:33 Inflation number: 2 The stent balloon was then re-inflated across the LMCA to 21 BENJI for 0:10 (min:sec). 11:24:56 Stent catheter was removed intact over wire. 11::57 Wire removed. 11:24:58 Guide catheter removed. 11:25:05 EXOSEAL 6Fr (EX600) opened to sterile field. 11:25:44 Sheath removed intact; hemostasis achieved with Exoseal to the Left Femoral artery. 11:25:48 Procedure ended.(Physican Out) 11:26:47 Fluoroscopy time 05.40 minutes. 11::51 Flurop Dose total: 545 11::51 Fluoroscopy dose: 545 mGy 11::54 Contrast amount:Isovue 300 107ml. 11::58 Post-op/insertion site Left Femoral artery dressed using a 4 x 4 and Tegaderm. 11:27:00 Post-procedure physical assessment completed. ASA score P 3 - A patient with severe systemic disease as per Cory Pinon MD. 11:27:09 Post procedure rhythm: atrial fibrillation 11:27:10 Estimated blood loss: 10 ml 11:27:12 Post procedure instruction explained to patient.Patient verbalizes understanding. 11:27:12 Patient needs reinforcement of post procedure teaching. 11:28:00 Procedure and supply charges have been captured, reviewed, submitted and are correct. 11:28:02 Procedure Complication : No complications 11::54 Vital chart was stopped 11::54 See physician's report for complete and final results. 11::56 Report given to Pre/Post Procedure Room. 11:29:59 Patient transfered to Pre/Post Procedure Room with Bed. 11:30:00 Procedure ended. 11:30:00 Full Disclosure recording stopped 11:30:03 End room use (Document Last) Intervention Summary Intervention Notes Time ActionType Lesion and Equipment Used Action# Pressure Duration Attributes 11:18:01 Place stent Prox CX DONOVAN RX 3.0 x 1 13 00:10 15 stent ([id number]) 11:21:54 Place stent Mid LAD DONOVAN RX 3.0 x 1 13 00:10 15 stent ([id number]) 11:24:09 Place stent LMCA DONOVAN RX 3.5 x 1 13 00:10 08 stent ([id number]) 11:24:33 Reinflate LMCA DONOVAN RX 3.5 x 2 21 00:10 stent 08 stent balloon ([id number]) Device Usage Item Name Manufacture Quantity Catalog Number Hospital Part Current M inimal Lot# / Charge Number Stock Stock Serial# Code ACIST Syringe Acist 1 13643 413429 767888 515116 2 0 (02672) Medical Systems Inc ACIST Hand Acist 1 98317 537085 239377 123914 5 Control Medical (68287) Systems Inc ACIST Manifold Acist 1 00842 165521 319316 372473 5 (51771) Medical Systems Inc Medline Cath Medline 1 [id number] 178998 78802 974560 5 Pack ([id number]) Bag Decanter Microtek 1 2001S 328311 13102 975022 5 () Medical Inc. DIAGNOSTIC [place] 1 076607 732198 497402 756252 3 0 WIRE .035 260cm J wire (265802) SHEATH 6FR Terumo 1 TNG768 689224 207183 887257 4 0 [place] (TWB863) INFLATOR Merit Merit 1 GQ3356 131654 365404 805957 1 5 [facility] (HB3554) CHOICE PT [place] 1 [id number] 389327 130445 526747 5 Extra Support Scientific 182cm wire ([id number]) Bodfish Bodfish 1 08104H 743585 180752 641799 8 Derry Eagleye IVUS Catheter (11607N) GUIDE 6FR Cardinal 1 [id number] 802711 391799 833285 3 XBLAD 3.5 [facility] catheter (74098632) DONOVAN RX 3.0 x Medtronic 2 [id number] 896343 5281831 360777 5 [id number] 15 stent [id number] ([id number]) DONOVAN RX 3.5 x Medtronic 1 [id number] 329100 8021827 974538 5 [id number] 08 stent ([id number]) EXOSEAL 6Fr Cardinal 1 EX600 614603 522043 766942 1 0 (EX600) Health Signature Audit [place] Stage Time Signature Unsigned Intra-Procedure 09/13/2018 Anne Marie Frank 11:32:54 AM RT(R) Signatures Monitor : Anne Marie Frank Signature : RT Date : Time : [place] [id number] [place] [address]
[~2018-09-13 07:50] MED LIST changes: -ASPIRIN81 MG PO; -XARELTO20 MG PO
[2018-09-13 08:24] VITALS: BP 129/85; Ht 162.6 cm; Wt 72.7 kg
[2018-09-13 08:29] LABS: BASOPHILS 0.4 % (0-2); HEMATOCRIT 36.5 % (36.0-48.0); HEMOGLOBIN 11.6 g/dL (12-16); IMMATURE GRANULOCYTES 0.4 % (0-5); LYMPHOCYTES 14.9 % (15-50); MCH 27.8 pg (26.0-34.0); MCHC 31.8 g/dL (31.0-37.0); MCV 87.3 fL (80.0-100.0); MONOCYTES 12.1 % (2-11); NEUTROPHILS 70.2 % (40-80); PLATELET COUNT 325 10x3/uL (130-400); RBC 4.18 10x6/uL (4.00-5.40); WBC 7.9 10x3/uL (4.8-10.8)
[2018-09-13 08:37] LABS: ANION GAP 13.4 mmol/L (8-16); CALCIUM 8.9 mg/dL (8.5-10.1); POTASSIUM - SERUM 3.4 mmol/L (3.5-5.1)
--- NOTE | 2018-09-13 11:19 | HP ---
PATIENT: MICHELE MARIA MEDICAL RECORD: [id number] ACCOUNT: [id number] LOCATION:TAV[facility] : 35 ADMISSION DATE: 09/13/18 PCP: JOSIAS KRAUSE MD HISTORY AND PHYSICAL EXAMINATION ADMITTING DIAGNOSES: 1. Angina. 2. Coronary artery disease. 3. Recent percutaneous transluminal coronary angioplasty stent of the right coronary artery with concomitant disease of left anterior descending and circumflex. 4. Hypertension. 5. Noninsulin-dependent diabetes. 6. Paroxysmal atrial fibrillation, controlled in sinus rhythm on sotalol. 7. Hyperlipidemia. HISTORY OF PRESENT ILLNESS: Mrs. Maria presents with anginal symptomatology, found to have 3-vessel coronary artery disease, underwent PTCA stent of the RCA. She is now brought back for PTCA stent of the LAD and circumflex. PHYSICAL EXAMINATION: GENERAL APPEARANCE: Well-nourished, well-developed, appears stated age. Level of distress, comfortable. PSYCHIATRIC: Mental status, alert, normal affect. Orientation, oriented to time, place and person. EYES: Lids and conjunctiva, noninjected. No discharge, no pallor. ENT: Lips, teeth, gums, normal dentition. Oropharynx, no cyanosis, no pallor. NECK: Carotid arteries, bilateral normal upstroke, no bruits, no thrills. JUGULAR VEINS: No jugular venous pressure or distention. CERVICAL LYMPH NODES: Nontender, nonenlarged. THYROID: Not enlarged. Nontender. No nodules. LUNGS: Respiratory effort, unlabored. CHEST: Normal curvature. No thoracic deformity. No chest wall tenderness. Percussion, resonant. Auscultation, clear. No wheezes, no rales, no rhonchi. CARDIOVASCULAR: Precordial exam, nondisplaced. No heaves or pericardial thrills. Rate and rhythm, regular. Heart sounds, normal S1, normal S2. No S3, no gallop, no rub. Systolic murmur, not heard. Diastolic murmur, not heard. EXTREMITIES: No cyanosis, no edema. Peripheral pulses, full and equal in all extremities, except as noted. No bruits appreciated. ABDOMEN: Soft, nondistended. Normal aorta. No bruit. Nontender. No masses. Liver, nontender, no hepatomegaly. Spleen, nontender, no splenomegaly. MUSCULOSKELETAL: No joint tenderness. No joint swelling. No erythema. NEUROLOGICAL: Normal gait, normal strength, normal tone. SKIN: Warm and dry. OVERALL IMPRESSION: Anginal symptomatology with disease of the left anterior descending and circumflex. We will proceed with percutaneous transluminal coronary angioplasty stent of the left anterior descending and circumflex. TRANSINT:[id number] Voice Confirmation ID: [id number] DOCUMENT ID: [id number] HISTORY AND PHYSICAL [id number] MICHELE MARIA JEFFREY MD at 1119 CC: [id number] DICTATION DATE: 09/12/18 161 CAKE FORMER: 09/12/18 1619 REG [facility] [address] [place] [id number]
[2018-09-13] MEDS ORDERED: ASPIRIN81 MG PO (11:53)
--- NOTE | 2018-09-13 11:55 | NUR ---
PATIENT RESTING. VSS ON 2L NC. LEFT GROIN DRESSING IS CDI, NO S/S OF BLEEDING OR HEMATOMA. NO C/O PAIN, NUMBNESS, OR TINGLING.
--- NOTE | 2018-09-13 12:25 | NUR ---
PATIENT AWAKE, PHYSICIAN AT BEDSIDE TO UPDATE FAMILY AND PATIENT. VSS ON 2L NC. LEFT GROIN DRESSING IS CDI, NO S/S OF BLEEDING OR HEMATOMA. NO C/O PAIN, NUMBNESS, OR TINGLING. NO N/V.
[2018-09-13] MEDS ORDERED: XARELTO20 MG PO (12:48)
--- NOTE | 2018-09-13 12:55 | NUR ---
PATIENT RESTING, VSS ON 2L NC. FAMILY AT BEDSIDE. LEFT GROIN DRESSING IS CDI, NO S/S OF BLEEDING OR HEMATOMA. NO C/O PAIN. NO N/V. 1+ PEDAL PULSES.
--- NOTE | 2018-09-13 13:25 | NUR ---
PATIENT AWAKE, EATING ICE CHIPS. VSS ON 2L NC. LEFT GROIN DRESSING IS CDI, NO S/S OF BLEEDING OR HEMATOMA. NO N/V.
--- NOTE | 2018-09-13 13:55 | NUR ---
PATIENT RESTING FAMILY AT BEDSIDE, VSS ON 2L NC. LEFT GROIN DRESSING IS CDI, NO S/S OF BLEEDING OR HEMATOMA. NO C/O PAIN, NUMBNESS, OR TINGLING. NO N/V.
--- NOTE | 2018-09-13 14:25 | NUR ---
PATIENT AWAKE, FAMILY AT BEDSIDE. VSS ON 1L NC. ASSISTED PATIENT WITH BEDPAN, PATIENT VOIDED WITH NO DIFFICULTY. LEFT GROIN DRESSING IS CDI, NO S/S OF BLEEDING OR HEMATOMA. NO C/O PAIN, NUMBNESS, OR TINGLING.
--- NOTE | 2018-09-13 14:35 | NUR ---
HEAD OF BED ELEVATED TO 30 DEGREES. LEFT GROIN DRESSING IS CDI, NO S/S OF BLEEDING OR HEMATOMA.
--- NOTE | 2018-09-13 14:55 | NUR ---
PATIENT AWAKE, EATING TURKEY SANDWICH. NO N/V. HEAD OF BED ELEVATED TO 90 DEGREES. LEFT GROIN DRESSING IS CDI, NO S/S OF BLEEDING OR HEMATOMA. NO C/O PAIN, NUMBNESS, OR TINGLING. VSS ON ROOM AIR.
--- NOTE | 2018-09-13 15:15 | NUR ---
IV REMOVED. EDUCATION GIVEN TO PATIENT AND FAMILY MEMBER REGARDING DISCHARGE INSTRUCTIONS AND MEDICATIONS, PATIENT VERBALIZES UNDERSTANDING. VSS ON ROOM AIR. LEFT GROIN DRESSING IS CDI, NO S/S OF BLEEDING OR HEMATOMA.
--- NOTE | 2018-09-13 15:30 | NUR ---
PATIENT TRANSPORTED VIA WHEELCHAIR TO CAR WITH FAMILY MEMBER DRIVING, ALL BELONGINGS WITH PATIENT.
--- NOTE | 2018-09-14 15:29 | OP ---
PATIENT NAME: MICHELE PARK MEDICAL RECORD: [id number] :35 LOCATION:D.CAT ADMISSION DATE: SURGEON: MAU SHEPPARD MD DATE OF OPERATION: 09/13/2018 DATE OF SERVICE: 09/13/2018 PROCEDURES: 1. PTCA stent left main. 2. PTCA stent LAD. 3. PTCA stent left circumflex. 4. Intravascular ultrasound of left main. 5. Intravascular ultrasound of the left circumflex. 6. Selective coronary angiography. PROCEDURE IN DETAIL: After informed consent was obtained and after a detailed description of the risks, benefits as well as alternative therapies, the patient elected to proceed with angiogram and angioplasty. The left femoral area was prepped and draped in normal sterile fashion. Left femoral artery was cannulated via modified Seldinger technique with placement of 6-[place] sheath. All catheters exchanged through this sheath. FINDINGS: The left anterior descending has 90% stenosis in the mid vessel. This was addressed with a 3.0 x 15 mm T[place]wn stent. Result was 0% residual stenosis. The left circumflex has 80% stenosis confirmed by intravascular ultrasound in the mid vessel. This was addressed with a 3.0 x 15 mm [place] stent of breath. The left main has greater than 80% stenosis confirmed by intravascular ultrasound. This was addressed with a 3.5 x 8 mm Tyshawn stent. Result was 0% residual throughout. OVERALL IMPRESSION: Successful percutaneous transluminal coronary angioplasty stent of the left anterior descending, circumflex and left main all going from 80% to 90% initial stenosis to 0% residual. TRANSINT:[id number] Voice Confirmation ID: [id number] DOCUMENT ID: [id number] MAU SHEPPARD MD at 1529 CC: [id number] DICTATION DATE: 09/13/18 1130 SPANISH LINGUIST: 09/13/18 1137 DEP CLI 09/13/18 [place] [id number]
== END 2018-09-13 15:30 ==
LOC: D.CATH 07:50
PROVIDERS: ATTEND Internal Medicine Interventional Cardiology
DX: I25.119 Atherosclerotic heart disease of native coronary artery with unspecified angina pectoris (principal); Z95.5 Presence of coronary angioplasty implant and graft; I10 Essential (primary) hypertension; E11.9 Type 2 diabetes mellitus without complications; I48.91 Unspecified atrial fibrillation; E78.5 Hyperlipidemia, unspecified
CPT/HCPCS: 92978; 92979; C9600 ×3

== ENCOUNTER → 2018-12-29 12:14 | Outpatient (CLI) | payer MEDICARE, OTHER ==
[2018-09-13 08:24] VITALS: BMI 27.5
[~2018-12-29 12:14] MED LIST changes: +ASPIRIN81 MG PO; +XARELTO20 MG PO
== END | disposition home or self-care (01) ==
LOC: D.US 12-27 10:00
PROVIDERS: ATTEND Internal Medicine Cardiovascular Disease
DX: I65.23 Occlusion and stenosis of bilateral carotid arteries (principal)

== ENCOUNTER 2019-08-05 13:39 | Inpatient (IN) | payer MEDICARE, OTHER ==
[~2019-08-05] VITALS: Ht 162.6 cm; Wt 77.1 kg
--- NOTE | 2019-08-05 13:50 | NUR ---
STROKE BAND [id number]
[2019-08-05 13:52] LABS: BASOPHILS 0.3 % (0-2); EOSINOPHILS 1.5 % (0-7); HEMATOCRIT 41.7 % (36.0-48.0); HEMOGLOBIN 13.5 g/dL (12-16); IMMATURE GRANULOCYTES 0.2 % (0-5); LYMPHOCYTES 16.7 % (15-50); MCH 28.4 pg (26.0-34.0); MCHC 32.4 g/dL (31.0-37.0); MCV 87.6 fL (80.0-100.0); MEAN PLATELET VOLUME 10.7 fL (7.4-10.4); MONOCYTES 10.6 % (2-11); NEUTROPHILS 70.7 % (40-80); PLATELET COUNT 339 10x3/uL (130-400); RBC 4.76 10x6/uL (4.00-5.40); RDW 14.4 % (11.5-14.5); WBC 11.3 10x3/uL (4.8-10.8)
--- NOTE | 2019-08-05 13:52 | NUR ---
EMS ALSO REPORTS RIGHT SIDED FACIAL DROOP
[2019-08-05 14:08] LABS: APTT 29.1 SECONDS (22.8-39.4); INR 0.87 (0.85-1.17); PROTIME 11.8 SECONDS (11.6-15.0)
[2019-08-05 14:09] LABS: CALC OSMOLALITY 281 mosm/kg (275-300); CALCIUM 9.1 mg/dL (8.5-10.1); CARBON DIOXIDE 27.7 mmol/L (21.0-32.0); CHLORIDE - SERUM 101 mmol/L (98-107); CREATININE - SERUM 0.9 mg/dL (0.6-1.3); GLUCOSE 143 mg/dL (74-106); POTASSIUM - SERUM 3.8 mmol/L (3.5-5.1); SODIUM 139 mmol/L (136-145); UREA NITROGEN 19 mg/dL (7-18); eGFR NON AFRICAN AMERICAN 63 mL/min (90-120)
[2019-08-05 14:17] LABS: ALBUMIN 3.5 g/dL (3.4-5.0); ALKALINE PHOSPHATASE 105 U/L (46-116); ALT (SGPT) 32 U/L (10-68); BILIRUBIN - TOTAL 0.44 mg/dL (0.2-1.3); CKMB 0.7 U/L (0.0-3.6); CREATINE KINASE 25 UL (21-215); MAGNESIUM - SERUM 1.8 mg/dL (1.8-2.4); PROTEIN - SERUM 7.4 g/dL (6.4-8.2); THYROID STIMULATING HORMONE 4.58 uIU/mL (0.36-3.74)
[2019-08-05 14:26] LABS: TROPONIN-I < 0.017 ng/mL (0.000-0.060)
--- NOTE | 2019-08-05 15:32 | NUR ---
PT STARTING TO ANSWER QUESTIONS. STILL VOMITING YELLOW BILE, COMPAZINE GIVEN PER ORDERS.
[2019-08-05 17:47] VITALS: BP 170/81
--- NOTE | 2019-08-05 18:06 | NUR ---
PT UNABLE TO PATRICIA PO MEDS.
--- NOTE | 2019-08-05 18:15 | NUR ---
ARRIVES TO UNIT PER STRETCHER, FAMILY PRESENT BUT UNABLE TO ASSIST WITH PT HOME MEDS OR HX
[2019-08-05] MEDS ORDERED: LEVOTHYROXINE150 MCG (18:58)
[2019-08-05] MEDS ORDERED: QUESTRAN LIG1 PACKET PO (18:59)
[2019-08-05] MEDS ORDERED: FLUTICASONE PRO16 GM NASAL (19:00)
--- NOTE | 2019-08-05 19:00 | NUR ---
BEDSIDE REPORT RECEIVED AND CARE OF PT ASSUMED. PT LYING IN SUPINE POSITION WITH EYES CLOSED AND EASY RESPIRATIONS. IV TO LEFT FA PATENT WITH NS INFUSING AT 75 ML/HR.
[2019-08-05] MEDS ORDERED: BUTALB-APAP-CA1 EACH PO (19:03)
[2019-08-05] MEDS ORDERED: PENTOXIFYLLINE PO (19:06)
--- NOTE | 2019-08-05 19:10 | NUR ---
SPOKE WITH PHARMACIST AT [facility] ABOUT PT HOME MEDS
[2019-08-05 20:00] VITALS: BP 128/80
--- NOTE | 2019-08-05 20:00 | NUR ---
SCD'S PLACED ON BLE PER ORDER. BED ALARM IN PLACE FOR SAFETY. PT CHANGED DUE TO INCONTINENCE OF URINE. POSITIONED IN BED FOR COMFORT.
--- NOTE | 2019-08-05 20:25 | NUR ---
HS MEDICATIONS GIVEN. PT SWALLOWS PILL AND WATER WITHOUT DIFFICULTY.
--- NOTE | 2019-08-05 21:00 | NUR ---
CATHI AND DINA HERE VISITING. REVIEWED CT RESULTS WITH THEM AND STATED MRI WILL BE PERFOMED IN AM.
[2019-08-06] VITALS (7 sets, daily range): BP systolic 111–142; BP diastolic 50–80; BMI 29.2
[2019-08-06 05:43] LABS: BASOPHILS 0.3 % (0-2); EOSINOPHILS 0.2 % (0-7); HEMATOCRIT 37.1 % (36.0-48.0); HEMOGLOBIN 11.5 g/dL (12-16); IMMATURE GRANULOCYTES 0.5 % (0-5); MCH 27.5 pg (26.0-34.0); MCV 88.8 fL (80.0-100.0); MEAN PLATELET VOLUME 11.6 fL (7.4-10.4); MONOCYTES 14.2 % (2-11); NEUTROPHILS 70.8 % (40-80); PLATELET COUNT 292 10x3/uL (130-400); RBC 4.18 10x6/uL (4.00-5.40); WBC 13.3 10x3/uL (4.8-10.8)
[2019-08-06 06:01] LABS: CALC OSMOLALITY 275 mosm/kg (275-300); CALCIUM 7.8 mg/dL (8.5-10.1); CARBON DIOXIDE 28.3 mmol/L (21.0-32.0); CHLORIDE - SERUM 100 mmol/L (98-107); CREATININE - SERUM 0.7 mg/dL (0.6-1.3); GLUCOSE 140 mg/dL (74-106); POTASSIUM - SERUM 3.3 mmol/L (3.5-5.1); SODIUM 137 mmol/L (136-145); eGFR NON AFRICAN AMERICAN 84 mL/min (90-120)
[2019-08-06 06:02] LABS: UREA NITROGEN 13 mg/dL (7-18)
--- NOTE | 2019-08-06 08:47 | NUR ---
AWAKE, NO DISTRESS NOTED, NO WEAKNESS TO ARMS AND LEGS, ABLE TO GIVE DATE AND YEAR, O2 PER NC, PUREWICK IN PLACE, CONT TO MONITOR
--- NOTE | 2019-08-06 12:27 | NUR ---
FAMILY HERE TO SEE PT, CONT TO MONITOR
[2019-08-06 15:01] LABS: CHOL - HDL RATIO 4.3 ratio (2.3-4.1); LDL-HDL RATIO 2.3 ratio (1.5-3.5)
--- NOTE | 2019-08-06 16:42 | NUR ---
rehab prescreen: thank you for this eval this patient should be a good canididate for IRF. will need ensure stability and physical therapy progress to evaluate her needs. will monitor her progress and reeval at a later date. thank you for this eval. litzy lea lpn clinical liasion
--- NOTE | 2019-08-06 19:00 | NUR ---
BEDSIDE REPORT RECEIVED AND CARE OF PT ASSUMED. PT LYING IN SUPINE POSITION WATCHING TV. MUCH MORE ALERT THIS PM THAN THIS TIME YESTERDAY. PT ORIENTED TO PERSON, TIME, PLACE AND SITUATION. IV TO LEFT FA SALINE LOCKED. TELEMETRY IN PLACE PER ORDER. WILL MONITOR FOR NEEDS.
--- NOTE | 2019-08-06 20:49 | NUR ---
HS MEDICATIONS GIVEN. PT REFUSED FSBS...STATES DR KRAUSE ONLY HAS HER CHECK A FEW TIMES A WEEK.
[2019-08-07] VITALS: BP 100/49
[2019-08-07 04:00] VITALS: BP 115/47
[2019-08-07 04:37] LABS: BASOPHILS 0.2 % (0-2); EOSINOPHILS 1.5 % (0-7); HEMATOCRIT 37.1 % (36.0-48.0); HEMOGLOBIN 11.9 g/dL (12-16); IMMATURE GRANULOCYTES 0.2 % (0-5); LYMPHOCYTES 17.7 % (15-50); MCH 28.7 pg (26.0-34.0); MCHC 32.1 g/dL (31.0-37.0); MCV 89.4 fL (80.0-100.0); MEAN PLATELET VOLUME 10.6 fL (7.4-10.4); MONOCYTES 15.6 % (2-11); NEUTROPHILS 64.8 % (40-80); PLATELET COUNT 329 10x3/uL (130-400); RBC 4.15 10x6/uL (4.00-5.40); WBC 10.3 10x3/uL (4.8-10.8)
[2019-08-07 04:52] LABS: ALBUMIN 2.7 g/dL (3.4-5.0); ANION GAP 8.8 mmol/L (8-16); BILIRUBIN - TOTAL 0.4 mg/dL (0.2-1.3); CALCIUM 8.3 mg/dL (8.5-10.1); CARBON DIOXIDE 30.7 mmol/L (21.0-32.0); MAGNESIUM - SERUM 1.8 mg/dL (1.8-2.4); POTASSIUM - SERUM 3.5 mmol/L (3.5-5.1); PROTEIN - SERUM 6.1 g/dL (6.4-8.2)
[2019-08-07 04:53] LABS: CREATININE - SERUM 0.9 mg/dL (0.6-1.3)
[2019-08-07 07:58] VITALS: BP 113/70
--- NOTE | 2019-08-07 08:00 | NUR ---
LYING IN BED,WITHOUT DISTRESS.DENIES NEEDS.CALL LIGHT IN REACH
--- NOTE | 2019-08-07 09:41 | NUR ---
Rehab Prescreening Consult recieved and the chart has been reviewed. He is an excellent candidate for the acute rehab if he has the need for 2 therapies. He has an OT, PT, and ST eval ordered. Rehab will follow and plan to accept. Rosa Elena Powers RN Clinical Liaison, Rehab
--- NOTE | 2019-08-07 10:03 | NUR ---
PT SITTIG UP IN BED HAVING BREAKFAST, NO S/SX OF DISTRESS, PT ASKED I GO OVRE MORNING MEDS WITH HER BEFORE SHE TOOK THEM, NO OTHER NEEDS VOICED, CONTINUE WITH PLAN OF CARE
[2019-08-07 13:50] VITALS: BMI 29.2
[2019-08-07 15:03] LABS: APPEARANCE CLEAR (CLEAR); BILIRUBIN NEGATIVE (NEGATIVE); COLOR YELLOW (YELLOW); GLUCOSE NEGATIVE (NEGATIVE); KETONE MODERATE mg/dL (NEGATIVE); NITRITE NEGATIVE (NEGATIVE); PROTEIN TRACE mg/dL (NEGATIVE); SPECIFIC GRAVITY 1.015 (1.005-1.020); UROBILINOGEN NORMAL (NORMAL)
[2019-08-07 15:04] LABS: RED CELLS - URINE OCC /hpf (0-5); WHITE CELLS - URINE 0-5 /hpf (NEGATIVE)
[2019-08-07 15:05] LABS: BACTERIA FEW /hpf (NEGATIVE)
--- NOTE | 2019-08-07 15:23 | NUR ---
PT LYING INBED, CL IN REACH NO NEEDS VOICED, BED IN LOWEST POSITION, CONTINUE WITH PLAN OF CARE
[2019-08-07 16:12] VITALS: Ht 162.6 cm; Wt 77.1 kg
[2019-08-07 17:33] VITALS: BP 119/69
--- NOTE | 2019-08-07 19:55 | NUR ---
OT NOTE: PT COMPLETED SIT TO STAND WITH SPV. PT COMPLETED BED MOB TASKS WITH SPV. PT COMPLETED HYGIENE TASKS AT SINK LEVEL WITH SPV. PT COMPLETED UE AROM AX WITH ADLS. [id number] THANK YOU,JAIDEN ISAACS
[2019-08-07 21:11] VITALS: BP 158/60
[2019-08-08 01:24] VITALS: BP 155/88
[2019-08-08 04:56] VITALS: BP 164/81
[2019-08-08 05:15] LABS: ALBUMIN 2.8 g/dL (3.4-5.0); ANION GAP 8.7 mmol/L (8-16); BILIRUBIN - TOTAL 0.35 mg/dL (0.2-1.3); CALCIUM 8.4 mg/dL (8.5-10.1); MAGNESIUM - SERUM 1.6 mg/dL (1.8-2.4); POTASSIUM - SERUM 3.7 mmol/L (3.5-5.1); PROTEIN - SERUM 6.3 g/dL (6.4-8.2)
[2019-08-08 05:42] LABS: BASOPHILS 0.3 % (0-2); EOSINOPHILS 1.6 % (0-7); HEMOGLOBIN 11.8 g/dL (12-16); IMMATURE GRANULOCYTES 0.3 % (0-5); LYMPHOCYTES 19.6 % (15-50); MCH 28.4 pg (26.0-34.0); MCHC 31.9 g/dL (31.0-37.0); MCV 89.2 fL (80.0-100.0); MEAN PLATELET VOLUME 11.1 fL (7.4-10.4); MONOCYTES 16.6 % (2-11); NEUTROPHILS 61.6 % (40-80); PLATELET COUNT 296 10x3/uL (130-400); RBC 4.15 10x6/uL (4.00-5.40); RDW 14.9 % (11.5-14.5)
[2019-08-08 05:43] LABS: WBC 7.4 10x3/uL (4.8-10.8)
[2019-08-08 09:16] VITALS: BP 142/73
--- NOTE | 2019-08-08 09:23 | NUR ---
PT STATES SHE IS ANTICIPATING DC TODAY AND HAS SHOWERED AND DRESSED HERSELF IN HER OWN PERSONAL CLOTHING. PT HAS TAKEN OFF TELEMETRY AND IS SITTING UP IN BED EATING BREAKFAST, NO NEEDS VOICED, CL IN REACH CONTINUE WITH PLAN OF CARE
--- NOTE | 2019-08-08 10:07 | MORECARE ---
CASE MANAGEMENT DISCHARGE SUMMARY PATIENT: MICHELE MARIA UNIT: [id number] ADM DATE: 08/05/19 AGE: 84 : 35 SEX: F ROOM/BED: D.2225 AUTHOR: MARU CAMACHO PHYSICIAN: REFERRING PHYSICIAN: RAMA PRITCHARD MD DATE OF SERVICE: 08/08/19 Discharge Plan Patient Name: MICHELE MARIA Facility: [facility]:[place] : 1935 Planned Disposition: Home with Home Health Anticipated Discharge Date: 08/08/19 Discharge Date: Expected LOS: 3 Initial Reviewer: [id number] Initial Review Date: 08/08/2019 Generated: 08/08/19 11:06 am DCPIA - Discharge Planning Initial Assessment Updated by [email or web address]: Ya Almonte on 08/08/19 10:06 am * Is the patient Alert and Oriented? Yes * How many steps to enter\exit or inside your home? 2/0 * PCP Dr. Murray * Pharmacy [facility] [address] * Preadmission Environment Home Alone * ADLs Independent * Equipment Walker * List name and contact numbers for known caregivers / representatives who currently or will assist patient after discharge: Rosa Elena Coyne [facility] - [phone] Montrell Maria [facility] - [phone] * Verbal permission to speak to the caregivers and representatives has been obtained from the patient. Yes * Community resources currently utilized None * Additional services required to return to the preadmission environment? Yes * Can the patient safely return to the preadmission environment? Yes * Has this patient been hospitalized within the prior 30 days at any hospital? No External Providers [facility] Next Contact Date: Service Request Date: Service Type: Resolution: Reviewer: Comments: Patient Name: MICHELE MARIA Page [phone] at 1007 All edits/amendments must be made on the electronic document DICTATION DATE: 08/08/19 1006 ADVERTISING ACCOUNT MANAGER: JACKIE 08/08/19 1006 RPT#: [id number] DC DATE: STATUS: ADM IN [facility] [address] [facility] [place] [address] END OF REPORT
--- NOTE | 2019-08-08 10:13 | MORECARE ---
CASE MANAGEMENT DISCHARGE SUMMARY PATIENT: MICHELE MARIA UNIT: [id number] ADM DATE: 08/05/19 AGE: 84 : 35 SEX: F ROOM/BED: D.2225 AUTHOR: DOUG,DOC PHYSICIAN: REFERRING PHYSICIAN: RAMA PRITCHARD MD DATE OF SERVICE: 08/08/19 Discharge Plan Patient Name: MICHELE MARIA Facility: [facility]:[place] : 1935 Planned Disposition: Home with Home Health Anticipated Discharge Date: 08/08/19 Discharge Date: Expected LOS: 3 Initial Reviewer: [email or web address] Initial Review Date: 08/08/2019 Generated: 08/08/19 11:13 am Comments DCP- Discharge Planning Updated by [email or web address]: Ya Almonte on 08/08/19 9:[address] Patient Name: MICHELE MARIA Admission Status: ER Accout number: [id number] Admission Date: 08-05-2019 : 1935 Admission Diagnosis: Attending: RAMA PRITCHARD Current LOS: 3 Anticipated DC Date: 08-08-2019 Planned Disposition: Home with Home Health Primary Insurance: MEDICARE A & B Discharge Planning Comments: CM met with patient to complete initial dc planning assessment. CM educated patient on the CM role and verbal consent given by patient to complete assessment. Patient lives at home alone. At discharge patient plans to return and feels this is a safe discharge. CM discussed availability of home health, rehab services, and medical equipment. Patient would like [facility]. VANNESA for [facility] signed. She would like information on their medical alert button. I called and spoke to Ray and clinical and order faxed. CM will continue to follow and will assist as needed with dc plans/needs. Manager Integration: Ya Almonte DCPIA - Discharge Planning Initial Assessment Updated by [email or web address]: Ya Almonte on 08/08/19 10:06 am * Is the patient Alert and Oriented? Yes * How many steps to enter\exit or inside your home? 2/0 * PCP Dr. Murray * Pharmacy [facility] [address] * Preadmission Environment Home Alone * ADLs Independent * Equipment Walker * List name and contact numbers for known caregivers / representatives who currently or will assist patient after discharge: Rosa Elena Coyne - [facility] - [phone] Montrell Maria - [facility] - [phone] * Verbal permission to speak to the caregivers and representatives has been obtained from the patient. Yes * Community resources currently utilized None * Additional services required to return to the preadmission environment? Yes * Can the patient safely return to the preadmission environment? Yes * Has this patient been hospitalized within the prior 30 days at any hospital? No Coverage Notice Reviewer: JOSE RAFAEL Almonte Notice Issued Date-Time: 08/08/2019 10:08 Notice Type: IM Discharge Notice Notice Delivered To: Patient Relationship to Patient: Self Data Center Consultant Name: Delivery Method: HAND - Hand Delivered Paula Days: Prior Verbal Notification: Recipient Understood Notice: Yes Recipient Signature: Yes Med Rec Note Co-signed by Attending: Coverage Notice Comment: IMM explained, signed, given, copy placed in MR Reviewer: JOSE RAFAEL Almonte Notice Issued Date-Time: 08/08/2019 10:08 Notice Type: Patient Choice Letter Notice Delivered To: Patient Relationship to Patient: Self Data Center Consultant Name: Delivery Method: HAND - Hand Delivered Paula Days: Prior Verbal Notification: Recipient Understood Notice: Yes Recipient Signature: Yes Med Rec Note Co-signed by Attending: Coverage Notice Comment: VANN[facility] for [facility] Last DP export: 08/08/19 9:07 a Patient Name: MICHELE MARIA Page [phone] at 1013 All edits/amendments must be made on the electronic document DICTATION DATE: 08/08/19 1013 METAL MINER BLASTING: JACKIE 08/08/19 1013 RPT#: [id number] DC DATE: STATUS: ADM IN [facility] [address] [place] [address] END OF REPORT
[2019-08-08] MEDS ORDERED: PRAVASTATIN SOD10 MG PO (11:31)
[2019-08-08] MEDS ORDERED: XARELTO20 MG PO (11:46)
[2019-08-08] MEDS ORDERED: ASPIRIN325 MG PO (11:47)
--- NOTE | 2019-08-08 12:19 | NUR ---
LYING IN BED,WITHOUT DISTRESS.CALL LIGHT IN REACH
--- NOTE | 2019-08-08 13:37 | MORECARE ---
CASE MANAGEMENT DISCHARGE SUMMARY PATIENT: MICHELE MRAIA UNIT: [id number] ADM DATE: 08/05/19 AGE: 84 : 35 SEX: F ROOM/BED: D.2225 AUTHOR: DOUG,DOC PHYSICIAN: REFERRING PHYSICIAN: RAMA PRITCHARD MD DATE OF SERVICE: 08/08/19 Discharge Plan Patient Name: MICHELE MARIA Facility: [facility]:[place] : 1935 Planned Disposition: Home with Home Health Anticipated Discharge Date: 08/08/19 Discharge Date: Expected LOS: 3 Initial Reviewer: [email or web address] Initial Review Date: 08/08/2019 Generated: 08/08/19 2:37 pm Comments DCP- Discharge Planning Updated by [email or web address]: Ya Almonte on 08/08/19 12:[address] She is discharging home today with [facility] home health. She has been given a 30 day coupon for Xarelto. She states her son will pick her up. She has been on Xarelto before and states she was getting samples. She has Medicare part D prescription coverage, but the copay is very high. She has the number to call for assistance with the Xarelto. Home today with home health. DCP- Discharge Planning Updated by [email or web address]: Ya Almonte on 08/08/19 9:[address] Patient Name: MICHELE MARIA Admission Status: ER Accout number: [id number] Admission Date: 08-05-2019 : 1935 Admission Diagnosis: Attending: RAMA PRITCHARD Current LOS: 3 Anticipated DC Date: 08-08-2019 Planned Disposition: Home with Home Health Primary Insurance: MEDICARE A & B Discharge Planning Comments: CM met with patient to complete initial dc planning assessment. CM educated patient on the CM role and verbal consent given by patient to complete assessment. Patient lives at home alone. At discharge patient plans to return and feels this is a safe discharge. CM discussed availability of home health, rehab services, and medical equipment. Patient would like [facility]. VANNESA for [facility] signed. She would like information on their medical alert button. I called and spoke to Ray and clinical and order faxed. CM will continue to follow and will assist as needed with dc plans/needs. Engineering Mechanic: Ya Almonte DCPIA - Discharge Planning Initial Assessment Updated by [email or web address]: Ya Almonte on 08/08/19 10:06 am * Is the patient Alert and Oriented? Yes * How many steps to enter\exit or inside your home? 2/0 * PCP Dr. Murray * Pharmacy [facility] on [address] * Preadmission Environment Home Alone * ADLs Independent * Equipment Walker * List name and contact numbers for known caregivers / representatives who currently or will assist patient after discharge: Rosa Elena Coyne - DTR - [phone] Montrell Maria [facility] - [phone] * Verbal permission to speak to the caregivers and representatives has been obtained from the patient. Yes * Community resources currently utilized None * Additional services required to return to the preadmission environment? Yes * Can the patient safely return to the preadmission environment? Yes * Has this patient been hospitalized within the prior 30 days at any hospital? No Coverage Notice Reviewer: [id number] - Ya Almonte Notice Issued Date-Time: 08/08/2019 10:08 Notice Type: IM Discharge Notice Notice Delivered To: Patient Relationship to Patient: Self Stretcher Drier Operator Name: Delivery Method: HAND - Hand Delivered Paula Days: Prior Verbal Notification: Recipient Understood Notice: Yes Recipient Signature: Yes Med Rec Note Co-signed by Attending: Coverage Notice Comment: IMM explained, signed, given, copy placed in MR Reviewer: [email or web address] Jonathon Almonte Notice Issued Date-Time: 08/08/2019 10:08 Notice Type: Patient Choice Letter Notice Delivered To: Patient Relationship to Patient: Self Stretcher Drier Operator Name: Delivery Method: HAND - Hand Delivered Paula Days: Prior Verbal Notification: Recipient Understood Notice: Yes Recipient Signature: Yes Med Rec Note Co-signed by Attending: Coverage Notice Comment: [facility] for [facility] Last DP export: 08/08/19 9:13 a Patient Name: MICHELE MARIA Page [phone] at 1337 All edits/amendments must be made on the electronic document DICTATION DATE: 08/08/19 1337 YARD ASSISTANT: JACKIE 08/08/19 1337 RPT#: [id number] DC DATE: STATUS: ADM IN [facility] [address] [place] [address] END OF REPORT
--- NOTE | 2019-08-10 08:52 | MORECARE ---
CASE MANAGEMENT DISCHARGE SUMMARY PATIENT: MICHELE MARIA UNIT: [id number] ADM DATE: 08/05/19 AGE: 84 : 35 SEX: F ROOM/BED: D.2225 AUTHOR: DOUG,DOC PHYSICIAN: REFERRING PHYSICIAN: RAMA PRITCHARD MD DATE OF SERVICE: 08/10/19 Discharge Plan Patient Name: MICHELE MARIA Facility: [facility]:[place] : 1935 Planned Disposition: Home with Home Health Anticipated Discharge Date: 08/08/19 Discharge Date: 08/08/2019 Expected LOS: 3 Initial Reviewer: [email or web address] Initial Review Date: 08/08/2019 Generated: 08/10/19 9:52 am Comments DCP- Discharge Planning Updated by [email or web address]: Ya Almonte on 08/08/19 12:[address] She is discharging home today with [facility]. She has been given a 30 day coupon for Xarelto. She states her son will pick her up. She has been on Xarelto before and states she was getting samples. She has Medicare part D prescription coverage, but the copay is very high. She has the number to call for assistance with the Xarelto. Home today with home health. DCP- Discharge Planning Updated by [id number]: Ya Almonte on 08/08/19 9:[address] Patient Name: MICHELE MARIA Admission Status: ER Accout number: [id number] Admission Date: 08-05-2019 : 1935 Admission Diagnosis: Attending: RAMA PRITCHARD Current LOS: 3 Anticipated DC Date: 08-08-2019 Planned Disposition: Home with Home Health Primary Insurance: MEDICARE A & B Discharge Planning Comments: CM met with patient to complete initial dc planning assessment. CM educated patient on the CM role and verbal consent given by patient to complete assessment. Patient lives at home alone. At discharge patient plans to return and feels this is a safe discharge. CM discussed availability of home health, rehab services, and medical equipment. [facility] like [facility] VANNESA for [facility] signed. She would like information on their medical alert button. I called and spoke to Ray and clinical and order faxed. CM will continue to follow and will assist as needed with dc plans/needs. Trimmer Tailer: Ya Almonte DCPIA - Discharge Planning Initial Assessment Updated by JOSE RAFAEL: Ya Almonte on 08/08/19 10:06 am * Is the patient Alert and Oriented? Yes * How many steps to enter\exit or inside your home? 2/0 * PCP Dr. Murray * Pharmacy [facility] on [address] * Preadmission Environment Home Alone * ADLs Independent * Equipment Walker * List name and contact numbers for known caregivers / representatives who currently or will assist patient after discharge: Rosa Elena Coyne - DTR - [phone] Montrell Maria [facility] - [phone] * Verbal permission to speak to the caregivers and representatives has been obtained from the patient. Yes * Community resources currently utilized None * Additional services required to return to the preadmission environment? Yes * Can the patient safely return to the preadmission environment? Yes * Has this patient been hospitalized within the prior 30 days at any hospital? No Coverage Notice Reviewer: [email or web address] Jonathon Almonte Notice Issued Date-Time: 08/08/2019 10:08 Notice Type: IM Discharge Notice Notice Delivered To: Patient Relationship to Patient: Self Human Factors Scientist Name: Delivery Method: HAND - Hand Delivered Paula Days: Prior Verbal Notification: Recipient Understood Notice: Yes Recipient Signature: Yes Med Rec Note Co-signed by Attending: Coverage Notice Comment: IMM explained, signed, given, copy placed in MR Reviewer: [id number] Jonathon Almonte Notice Issued Date-Time: 08/08/2019 10:08 Notice Type: Patient Choice Letter Notice Delivered To: Patient Relationship to Patient: Self Human Factors Scientist Name: Delivery Method: HAND - Hand Delivered Paula Days: Prior Verbal Notification: Recipient Understood Notice: Yes Recipient Signature: Yes Med Rec Note Co-signed by Attending: Coverage Notice Comment: [facility] for [facility] Last DP export: 08/08/19 12:37 p Patient Name: MICHELE MARIA Page [phone] at 0852 All edits/amendments must be made on the electronic document DICTATION DATE: 08/10/19851 DOUBLE ENDING MACHINE OPERATOR: JACKIE 08/10/19851 RPT#: [id number] DC DATE:08/08/19 STATUS: DIS IN [facility] [address] [place] [address] END OF REPORT
== END 2019-08-08 17:39 | disposition home health service (06) | DRG 66 ==
LOC: D.ER 13:39 → D.MS 16:49
PROVIDERS: Family Medicine; ADMIT Internal Medicine Nephrology; ATTEND Internal Medicine Nephrology
DX: I63.89 Other cerebral infarction (principal); E03.9 Hypothyroidism, unspecified; I10 Essential (primary) hypertension; I25.10 Atherosclerotic heart disease of native coronary artery without angina pectoris; M19.90 Unspecified osteoarthritis, unspecified site; E11.65 Type 2 diabetes mellitus with hyperglycemia; M54.9 Dorsalgia, unspecified; E78.5 Hyperlipidemia, unspecified; E11.51 Type 2 diabetes mellitus with diabetic peripheral angiopathy without gangrene; I48.0 Paroxysmal atrial fibrillation

== ENCOUNTER 2020-08-31 19:22 | Inpatient (IN) | payer OTHER ==
[~2020-08-31] VITALS: Ht 162.6 cm; Wt 71.8 kg
[~2020-08-31 19:22] MED LIST changes: +ASPIRIN325 MG PO; +BUTALB-APAP-CA1 EACH PO; +FLUTICASONE PRO16 GM NASAL; +LEVOTHYROXINE150 MCG PO; +MONODOX100 MG PO; +PENTOXIFYLLINE PO; +PRAVASTATIN SOD10 MG PO; +QUESTRAN LIG1 PACKET PO
[2020-08-31] MEDS ORDERED: DITROPAN XL 1010 MG PO (19:26)
[2020-08-31 19:30] VITALS: BP 164/122
--- NOTE | 2020-08-31 19:43 | NUR ---
FSBS 152
--- NOTE | 2020-08-31 19:44 | NUR ---
DR CARLOS SPEAKING WITH PTS DAUGHTER CIRILO TIMMONSRAN
[2020-08-31 19:49] VITALS: BP 194/71
--- NOTE | 2020-08-31 19:50 | NUR ---
O2 APPLIED AT 2L PER MIN VIA NC
--- NOTE | 2020-08-31 20:02 | NUR ---
LAB DRAWN AND SENT WITH CLOTH WORKER.
[2020-08-31 20:06] LABS: BASOPHILS 0.3 % (0-2); EOSINOPHILS 0.3 % (0-7); HEMATOCRIT 39.3 % (36.0-48.0); HEMOGLOBIN 12.1 g/dL (12-16); IMMATURE GRANULOCYTES 0.3 % (0-5); LYMPHOCYTE ABS# 0.92 10x3/uL (1.18-3.74); LYMPHOCYTES 8.5 % (15-50); MCH 26.5 pg (26.0-34.0); MCHC 30.8 g/dL (31.0-37.0); MEAN PLATELET VOLUME 10.3 fL (7.4-10.4); MONOCYTES 10.6 % (2-11); PLATELET COUNT 311 10x3/uL (130-400); RBC 4.57 10x6/uL (4.00-5.40); RDW 15.8 % (11.5-14.5); WBC 10.9 10x3/uL (4.8-10.8)
--- NOTE | 2020-08-31 20:15 | NUR ---
DEEPALI PAPERWORK COMPLETED, [place] STATES NO LONGER DOING ARSAVES. LEFT IN CHART INCASE OF CHANGE IN CAREPLAN.
[2020-08-31 20:16] LABS: CALC OSMOLALITY 279 mosm/kg (275-300); CALCIUM 8.6 mg/dL (8.5-10.1); CARBON DIOXIDE 26.9 mmol/L (21.0-32.0); CHLORIDE - SERUM 98 mmol/L (98-107); POTASSIUM - SERUM 4.2 mmol/L (3.5-5.1); SODIUM 135 mmol/L (136-145); UREA NITROGEN 19 mg/dL (7-18); eGFR NON AFRICAN AMERICAN 56 mL/min (90-120)
[2020-08-31 20:17] LABS: D-DIMER-QUANTITATIVE 0.49 ug/mLFEU (0.20-0.54)
[2020-08-31 20:19] LABS: GLUCOSE 245 mg/dL (74-106)
[2020-08-31 20:20] LABS: INR 1.08 (0.85-1.17)
[2020-08-31 20:31] LABS: ALBUMIN 3.1 g/dL (3.4-5.0); ALKALINE PHOSPHATASE 128 U/L (30-120); ALT (SGPT) 11 U/L (10-68); BILIRUBIN - TOTAL 0.83 mg/dL (0.2-1.3); CREATINE KINASE 23 UL (21-215); MAGNESIUM - SERUM 1.6 mg/dL (1.8-2.4); PRO BNP 4110 pg/mL (0-450); PROTEIN - SERUM 6.8 g/dL (6.4-8.2); THYROID STIMULATING HORMONE 2.52 uIU/mL (0.36-3.74)
[2020-08-31 20:37] LABS: LIPASE 48 U/L (73-393); TROPONIN-I < 0.017 ng/mL (0.000-0.060)
[2020-08-31 20:45] LABS: APTT < 20.0 SECONDS (22.8-39.4); PROTIME 12.9 SECONDS (11.6-15.0)
--- NOTE | 2020-08-31 20:56 | NUR ---
PATIENT TAKEN TO CT
--- NOTE | 2020-08-31 23:05 | NUR ---
VERBAL ORDER FROM DR. CARLOS TO ENSURE THAT NURSING STAFF ALERTS HIM IF PATIENT IS AGITATED OR APPEARS UNCOMFORTABLE, V.O. TO AVOID PAINFUL OR UNCOMFORTABLE STIMULI AND PROCEDURES AT THIS TIME PER FAMILY REQUEST.
[2020-09-01] VITALS (21 sets, daily range): BP systolic 122–158; BP diastolic 57–85; BMI 27.1
--- NOTE | 2020-09-01 00:54 | NUR ---
REPORT CALLED TO ICU, ACCEPTED.
[2020-09-01 05:19] LABS: BASOPHILS 0.1 % (0-2); EOSINOPHILS 0 % (0-7); HEMATOCRIT 36.6 % (36.0-48.0); HEMOGLOBIN 11.4 g/dL (12-16); IMMATURE GRANULOCYTES 0.3 % (0-5); LYMPHOCYTE ABS# 0.61 10x3/uL (1.18-3.74); LYMPHOCYTES 6.3 % (15-50); MCH 26.3 pg (26.0-34.0); MCHC 31.1 g/dL (31.0-37.0); MCV 84.5 fL (80.0-100.0); MONOCYTES 8.5 % (2-11); NEUTROPHIL ABS# 8.23 10x3/uL (1.56-6.13); NEUTROPHILS 84.8 % (40-80); RBC 4.33 10x6/uL (4.00-5.40); RDW 16.1 % (11.5-14.5); WBC 9.7 10x3/uL (4.8-10.8)
[2020-09-01 05:27] LABS: PLATELET COUNT 377 10x3/uL (130-400)
[2020-09-01 05:54] LABS: ANION GAP 16.1 mmol/L (8-16); BILIRUBIN - TOTAL 0.66 mg/dL (0.2-1.3); CALCIUM 8.5 mg/dL (8.5-10.1); CARBON DIOXIDE 24.5 mmol/L (21.0-32.0); CREATININE - SERUM 0.9 mg/dL (0.6-1.3); MAGNESIUM - SERUM 1.8 mg/dL (1.8-2.4); POTASSIUM - SERUM 3.6 mmol/L (3.5-5.1)
--- NOTE | 2020-09-01 09:30 | NUR ---
DR. CRANDALL AT BEDSIDE, UPDATE GIVEN
--- NOTE | 2020-09-01 10:55 | NUR ---
PT TO MRI AT THIS TIME VIA STRETCHER
--- NOTE | 2020-09-01 21:20 | NUR ---
PT RECEIVED WITH EYES CLOSED AND AWAKENS EASILY TO VERBAL STIMULI. ALERT AND ORIENTED, DIFFICULTY REMEMBERING BIRTHDAY BUT STATED WITHOUT HELP. BROADCAST MAINTENANCE ENGINEER STRENGTH EQUAL. DENIES PAIN. CALL LIGHT IN REACH.
[2020-09-02] VITALS (15 sets, daily range): BP systolic 113–155; BP diastolic 36–85; Ht 162.6 cm; Wt 71.8 kg
[2020-09-02 05:40] LABS: BASOPHILS 0.1 % (0-2); EOSINOPHILS 1.8 % (0-7); HEMATOCRIT 33.8 % (36.0-48.0); HEMOGLOBIN 10.6 g/dL (12-16); IMMATURE GRANULOCYTES 0.1 % (0-5); LYMPHOCYTE ABS# 0.89 10x3/uL (1.18-3.74); LYMPHOCYTES 12.1 % (15-50); MCH 26.6 pg (26.0-34.0); MCHC 31.4 g/dL (31.0-37.0); MCV 84.7 fL (80.0-100.0); MEAN PLATELET VOLUME 9.8 fL (7.4-10.4); MONOCYTES 15.3 % (2-11); NEUTROPHIL ABS# 5.18 10x3/uL (1.56-6.13); NEUTROPHILS 70.6 % (40-80); PLATELET COUNT 312 10x3/uL (130-400); RBC 3.99 10x6/uL (4.00-5.40); RDW 16.2 % (11.5-14.5); WBC 7.3 10x3/uL (4.8-10.8)
[2020-09-02 05:57] LABS: ALBUMIN 2.5 g/dL (3.4-5.0); ANION GAP 11.3 mmol/L (8-16); BILIRUBIN - TOTAL 0.8 mg/dL (0.2-1.3); CALCIUM 8.2 mg/dL (8.5-10.1); CARBON DIOXIDE 28.9 mmol/L (21.0-32.0); CREATININE - SERUM 0.8 mg/dL (0.6-1.3); MAGNESIUM - SERUM 1.9 mg/dL (1.8-2.4); POTASSIUM - SERUM 3.2 mmol/L (3.5-5.1); PROTEIN - SERUM 5.8 g/dL (6.4-8.2)
--- NOTE | 2020-09-02 09:10 | NUR ---
CONSULT CALLED TO DR. DEVLIN AT THIS TIME,
--- NOTE | 2020-09-02 15:13 | NUR ---
NANCY DUARTE'Nelia AT THIS TIME, PT TOLERATED WELL
[2020-09-03] VITALS (12 sets, daily range): BP systolic 127–168; BP diastolic 67–90
[2020-09-03 04:35] LABS: BASOPHILS 0.1 % (0-2); EOSINOPHILS 1.4 % (0-7); HEMATOCRIT 36.8 % (36.0-48.0); HEMOGLOBIN 11.5 g/dL (12-16); IMMATURE GRANULOCYTES 0.3 % (0-5); LYMPHOCYTE ABS# 0.89 10x3/uL (1.18-3.74); LYMPHOCYTES 11.2 % (15-50); MCH 26.6 pg (26.0-34.0); MCHC 31.3 g/dL (31.0-37.0); MEAN PLATELET VOLUME 9.9 fL (7.4-10.4); MONOCYTES 16.5 % (2-11); NEUTROPHIL ABS# 5.63 10x3/uL (1.56-6.13); NEUTROPHILS 70.5 % (40-80); RBC 4.33 10x6/uL (4.00-5.40); RDW 16.1 % (11.5-14.5)
[2020-09-03 05:04] LABS: PLATELET COUNT 410 10x3/uL (130-400)
[2020-09-03 05:13] LABS: ALBUMIN 2.7 g/dL (3.4-5.0); ANION GAP 9.8 mmol/L (8-16); BILIRUBIN - TOTAL 0.47 mg/dL (0.2-1.3); CALCIUM 8.9 mg/dL (8.5-10.1); CARBON DIOXIDE 29.7 mmol/L (21.0-32.0); CREATININE - SERUM 0.9 mg/dL (0.6-1.3); MAGNESIUM - SERUM 1.8 mg/dL (1.8-2.4); POTASSIUM - SERUM 3.5 mmol/L (3.5-5.1); PROTEIN - SERUM 6.4 g/dL (6.4-8.2)
--- NOTE | 2020-09-03 11:51 | EC ---
PATIENT:MICHELE PARK DATE OF SERVICE: 08/31/20 SEX: F MEDICAL RECORD: [id number] DATE OF : [birth year] LOCATION:[facility] D231 AGE OF PATIENT: 85 ADMISSION DATE: 08/31/20 REFERRING PHYSICIAN: INTERPRETING PHYSICIAN: FELIX CARBAJAL MD ECHOCARDIOGRAM REPORT ECHO CHARGES 5 ECHO LIMITED Date: 09/01/20 1 DOPPLER ECHO COLOR FLOW 2 DOPPLER ECHO PULSE CLINICAL DIAGNOSIS: CVA ECHOCARDIOGRAPHIC MEASUREMENTS (adult normal given) AC root (d.<3.7cm) 0 cm LV Septum d (<1.2 cm> 0 cm Valve Excursion 0 cm LV Septum (systole) 0 cm Left Atria (s.<4.0cm> 0 cm LVPW d(<1.2cm) 0 cm RV (d.<2.3cm) 0 cm LVPW (sytole) 0 cm LV diastole(<5.6CM) 0 cm MV E-F(>70mm/sec) 0 cm LV systole 0 cm LVOT Diameter 0 cm MV exc.(>10mm) 0 cm Est.ejection fraction (50-75%) % DOPPLER: LVIT 0 cm/sec A 0 cm/sec E 0 cm/sec LA 0 cm/sec RVSP 49.0 mmHg LVOT 0 cm/sec AOP1/2T 0 m/s Asc. Ao 0 cm/sec RVOT 0 cm/sec RA 0 cm/sec PA 0 cm/sec AV Gradient Peak 0 mmHg AV Mean 0 mmHg AV Area 0 cm MV Gradient Peak 0 mmHg MV Mean 0 mmHg MV Area 0 cm COMMENTS: LIMITED STUDY (2-D,COLOR,DOPPLER) COMPLETE ECHO DONE ON 08/13/20 Banana Expert: 1 BREA HARTMANOE Douper: 3 Dr. Paul TAPE# PACS Pericardial Effusion N DATE OF SERVICE: Adequate 2D, color-flow imaging, spectral Doppler, and M-Mode Grossly, LVH appears present. LV internal dimensions appears normal. Wall motion is normal. EF is greater than or equal to 55%. Aortic valve sclerosis without evidence of stenosis by Doppler interrogation. Left atrium grossly appears normal with mitral annular calcification. Only mild MR. Right side is grossly normal. Moderate TR. ECHOCARDIOGRAM REPORT [id number] MICHELE PARK TRANSINT:[id number] Voice Confirmation ID: [id number] DOCUMENT ID: [id number] FELIX CARBAJAL MD at 1151 CC: [id number] DICTATION DATE: 09/02/20 1308 IN STORE BANKER: 09/02/20 1638 ADM IN [facility] [address] [place] [address]
--- NOTE | 2020-09-03 11:51 | CN ---
PATIENT NAME:MICHELE PARK MEDICAL RECORD: [id number] : [birth year] LOCATION:CADED.2311 ADMIT DATE: 08/31/20 ACCOUNT: [id number] CONSULTING PHYSICIAN: FELIX CARBAJAL MD REFERRING PHYSICIAN: SANTA CRANDALL MD DATE OF CONSULTATION: 09/02/2020 HISTORY OF PRESENT ILLNESS: An 85-year-old female with history of cardiac arrhythmias, ventricular tachycardia as well as atrial fibrillation, being controlled with varying doses of sotalol, admitted with a TIA symptomatology, this has resolved. Nothing acute noted on CT scan. As stated above, her symptomatology resolved nicely. We are asked to see her concerning her cardiovascular status. PAST MEDICAL HISTORY: Includes; 1. History of hypertension and cardiac arrhythmias. 2. Dyslipidemia. 3. Diabetes mellitus. 4. Hypothyroidism, on replacement. MEDICATIONS: Include metformin 500 b.i.d., Synthroid 150 mcg every day, aspirin 325 every day, sotalol 40 b.i.d., pravastatin 10 every day, Questran 1 packet b.i.d. ALLERGIES: PENICILLIN, POTASSIUM, HYDROCODONE, COCONUT OIL. REVIEW OF SYSTEMS: The patient reports easy bruising but reports no swollen glands. The patient reports no fever, no night sweats, no significant weight gain, no significant weight loss. No significant exercise tolerance. The patient reports no dry eyes, no irritation, no vision change. Patient reports no difficulty hearing and no ear pain. Patient reports no frequent nose bleeds or nose and sinus problems. Patient reports on arm pain on exertion. No shortness of breath while lying down. No history of heart murmur. Patient reports no cough, no wheezing or coughing up blood. Patient reports no abdominal pain, no vomiting. Normal appetite. No diarrhea and not vomiting blood. No nausea and no constipation. Patient reports no incontinence. No difficulty urinating. No hematuria. No increased frequency. Patient reports no muscle aches. No weakness, no arthralgias, no back pain. No swelling of the extremities. Patient reports no abnormal mole, no jaundice, no rashes. Reports no loss of consciousness. No weakness and no numbness. No seizures, dizziness, or headaches. The patient reports no depression, no sleep disturbance, feeling safe in a relationship and no alcohol abuse. Patient reports on fatigue. Reports no runny nose or sinus pressure. No itching, no hives, and no frequent sneezing. PHYSICAL EXAMINATION: GENERAL: Pleasant. No acute distress. Significant improvement in her neurological status from what I can tell in the initial admission. VITAL SIGNS: Pulse 89, irregular. Blood pressure 140/64. HEENT: Normocephalic, atraumatic. NECK: No JVD or bruit. HEART: Irregular, rate is controlled. ABDOMEN: Soft, nontender. EXTREMITIES: Pulses are 2+. No edema. CONSULT REPORT [id number] MICHELE PARK DIAGNOSTIC DATA: EKG confirms atrial fibrillation. IMPRESSION AND PLAN: Obviously, she has history of atrial fibrillation, strong consideration for embolic event, has had recurrent episodes. So, at this point in time, despite age, with no recent history of bleeding, etc. would consider a combination with aspirin and DOAC for both antiplatelet and anticoagulant effect. Further recommendations based on clinical course. TRANSINT:[id number] Voice Confirmation ID: [id number] DOCUMENT ID: [id number] FELIX CARBAJAL MD at 1151 CC: [id number] DICTATION DATE: 09/02/20 1301 STRIPPER SHOVEL OPERATOR: 09/02/20 1615 ADM IN [place] [facility] [address] [place] [address]
[2020-09-04] VITALS (11 sets, daily range): BP systolic 130–166; BP diastolic 56–82
[2020-09-04 05:03] LABS: BASOPHILS 0.2 % (0-2); EOSINOPHILS 2.6 % (0-7); HEMATOCRIT 34.9 % (36.0-48.0); HEMOGLOBIN 10.7 g/dL (12-16); IMMATURE GRANULOCYTES 0.2 % (0-5); LYMPHOCYTE ABS# 1.04 10x3/uL (1.18-3.74); LYMPHOCYTES 20.8 % (15-50); MCH 26.2 pg (26.0-34.0); MCHC 30.7 g/dL (31.0-37.0); MCV 85.5 fL (80.0-100.0); MEAN PLATELET VOLUME 10.3 fL (7.4-10.4); MONOCYTES 17.8 % (2-11); NEUTROPHIL ABS# 2.92 10x3/uL (1.56-6.13); NEUTROPHILS 58.4 % (40-80); PLATELET COUNT 359 10x3/uL (130-400); RBC 4.08 10x6/uL (4.00-5.40); RDW 16.2 % (11.5-14.5)
[2020-09-04 05:27] LABS: ALBUMIN 2.6 g/dL (3.4-5.0); ANION GAP 8.7 mmol/L (8-16); BILIRUBIN - TOTAL 0.49 mg/dL (0.2-1.3); CALCIUM 9.1 mg/dL (8.5-10.1); CARBON DIOXIDE 28.7 mmol/L (21.0-32.0); CREATININE - SERUM 0.8 mg/dL (0.6-1.3); MAGNESIUM - SERUM 1.8 mg/dL (1.8-2.4); POTASSIUM - SERUM 3.4 mmol/L (3.5-5.1); PROTEIN - SERUM 5.9 g/dL (6.4-8.2)
--- NOTE | 2020-09-04 07:54 | NUR ---
PT ASLEEP. ARISES TO VOICE. ON ROOM AIR. VSS. NO FEVER NOTED. CALL RECEIVED FROM CIRILO PT'S DAUGHTER. WANTED TO KNOW WHEN SHE WOULD BE MOVED TO REHAB.
--- NOTE | 2020-09-04 09:43 | NUR ---
Nutrition follow-up: Pt receiving a low sodium diet PO intake ~25% of last 3 meals WT: 158# On RA at this time; waiting for rehab admission Will continue to provide food choices and honor food preferences Will offer and encourage nutritional supplements RDN follow-up: 09/06/20
--- NOTE | 2020-09-04 10:55 | NUR ---
ASSISTED UP TO BEDSIDE COMMODE. SMALL AMOUNT OF STOOL NOTED AT THIS TIME. VOIDED ABOUT 150ML. RESTING COMFORTABLY IN CHAIR. PT WANTED TO CALL TODD AT [phone]. CALLED TODD AND TRANSFERRED CALL TO PT'S ROOM.
--- NOTE | 2020-09-04 12:21 | NUR ---
CALL RECEIVED FROM CIRILO PT'S DAUGHTER. WANTED TO KNOW IF PT WAS GOING TO TRANSFER TO REHAB AND HOW LONG WOULD SEE BE ABLE TO STAY IN REHAB. NATTY WITH CASE MANAGEMENT CALLED. SHE SAID WE ARE WAITING OF INSURANCE APPROVAL FOR REHAB.
--- NOTE | 2020-09-04 13:33 | NUR ---
CHG BATH GIVEN. PT SITTING UP IN CHAIR COMFORTABLY. ORAL CARE PERFORMED INDEPENDENTLY. NO OTHER NEEDS AT THIS TIME.
--- NOTE | 2020-09-04 16:42 | NUR ---
PT BEING TRANSFERRED TO ROOM 2203. REPORT CALLED TO МАРИЯ MAYES.
--- NOTE | 2020-09-04 16:51 | NUR ---
TRANSFERRED TO ROOM 2203. CIRILO SALAS'S DAUGHTER NOTIFIED.
--- NOTE | 2020-09-04 16:55 | NUR ---
TO ROOM 2203 FROM ICU VIA Xockets. FALL PREVENTION INITIATED WITH BED ALARM. CALL LIGHT IN REACH.
[2020-09-04] MEDS ORDERED: BAYER CHEWABLE81 MG PO (17:00)
--- NOTE | 2020-09-04 21:00 | NUR ---
Assumed care of pt on shift change. Pt is A&OX4 and verbalizes wants/needs clearly, appropriately and without difficulty or hesitation. Pt lying in bed watching TV at present. Denies pain. Call light in reach and pt is utilizing appropriately to request assist. Pt did ask what admitting diagnosis are. Nurse did discuss with pt that these need to be reviewed with MD. Did also discuss the effects on the body when fluids and electrolytes are imbalanced. Pt did verbalize understanding.
[2020-09-05 00:25] VITALS: BP 152/78
[2020-09-05 04:01] VITALS: BP 132/51
[2020-09-05 05:21] LABS: BASOPHILS 0.4 % (0-2); EOSINOPHILS 2.4 % (0-7); HEMATOCRIT 33.5 % (36.0-48.0); HEMOGLOBIN 10.2 g/dL (12-16); IMMATURE GRANULOCYTES 0.2 % (0-5); LYMPHOCYTE ABS# 1.04 10x3/uL (1.18-3.74); LYMPHOCYTES 20.8 % (15-50); MCH 26.3 pg (26.0-34.0); MCHC 30.4 g/dL (31.0-37.0); MCV 86.3 fL (80.0-100.0); MEAN PLATELET VOLUME 10.2 fL (7.4-10.4); NEUTROPHIL ABS# 2.91 10x3/uL (1.56-6.13); NEUTROPHILS 58.2 % (40-80); PLATELET COUNT 324 10x3/uL (130-400); RBC 3.88 10x6/uL (4.00-5.40); RDW 16.3 % (11.5-14.5)
[2020-09-05 05:47] LABS: ALBUMIN 2.6 g/dL (3.4-5.0); ANION GAP 13.8 mmol/L (8-16); BILIRUBIN - TOTAL 0.35 mg/dL (0.2-1.3); CALCIUM 8.8 mg/dL (8.5-10.1); CARBON DIOXIDE 27.3 mmol/L (21.0-32.0); CREATININE - SERUM 0.9 mg/dL (0.6-1.3); POTASSIUM - SERUM 4.1 mmol/L (3.5-5.1); PROTEIN - SERUM 5.5 g/dL (6.4-8.2)
--- NOTE | 2020-09-05 06:17 | NUR ---
Pt is in bed resting at this time. Was able to collect a urine sample and sent to lab this AM per order. Continues to deny pain. Did request order her Meclizine as she believes this will "fix her dizziness" and she can go home. Will pass on to day nurse.
[2020-09-05 08:13] VITALS: BP 130/61
[2020-09-05 08:32] LABS: BILIRUBIN NEGATIVE (NEGATIVE); KETONE NEGATIVE (NEGATIVE); NITRITE NEGATIVE (NEGATIVE); UROBILINOGEN NORMAL mg/dL (< 2)
[2020-09-05 08:33] LABS: BACTERIA FEW HPF (NONE SEEN); SQUAMOUS EPITHELIAL RARE HPF (0-4); WHITE CELLS - URINE 0-5 HPF (0-4)
--- NOTE | 2020-09-05 09:56 | NUR ---
ASSESSMENT PER FLOW SHEET. PATIENT IS WITHOUT DISTRESS. ASSIST TO BATHROOM BY GORE SEAMER.DENIES NEEDS.CALL LIGHT IN REACH
--- NOTE | 2020-09-05 11:09 | EC ---
PATIENT:MICHELE PARK DATE OF SERVICE: 08/31/20 SEX: F MEDICAL RECORD: [id number] DATE OF : 35 LOCATION:[facility] AGE OF PATIENT: 85 ADMISSION DATE: 08/31/20 REFERRING PHYSICIAN: INTERPRETING PHYSICIAN: FELIX CARBAJAL MD ECHOCARDIOGRAM REPORT ECHO CHARGES 5 ECHO LIMITED Date: 09/03/20 CLINICAL DIAGNOSIS: CVA, ASSESS EF AND FOR CLOTS ECHOCARDIOGRAPHIC MEASUREMENTS (adult normal given) AC root (d.<3.7cm) 0 cm LV Septum d (<1.2 cm> 0 cm Valve Excursion 0 cm LV Septum (systole) 0 cm Left Atria (s.<4.0cm> 0 cm LVPW d(<1.2cm) 0 cm RV (d.<2.3cm) 0 cm LVPW (sytole) 0 cm LV diastole(<5.6CM) 0 cm MV E-F(>70mm/sec) 0 cm LV systole 0 cm LVOT Diameter 0 cm MV exc.(>10mm) 0 cm Est.ejection fraction (50-75%) % DOPPLER: LVIT 0 cm/sec A 0 cm/sec E 0 cm/sec LA 0 cm/sec RVSP 32 mmHg LVOT 0 cm/sec AOP1/2T 0 m/s Asc. Ao 0 cm/sec RVOT 0 cm/sec RA 0 cm/sec PA 0 cm/sec AV Gradient Peak 0 mmHg AV Mean 0 mmHg AV Area 0 cm MV Gradient Peak 0 mmHg MV Mean 0 mmHg MV Area 0 cm COMMENTS: LIMITED STUDY (2-D,COLOR,DOPPLER) COMPLETE ECHO DONE ON 08/13/20 Senior Speech Pathologist: 2 JOSEPH AWAN X Ray Tech: 3 Dr. Paul TAPE# PACS Pericardial Effusion N DATE OF SERVICE: LIMITED 2D COLOR FLOW AND DOPPLER Grossly, LVH appears present. LV internal dimensions are normal. Wall motion is normal. EF is greater than or equal to 55%. Aortic valve appears tricuspid with good valve excursion. Left atrium appears grossly normal. Mitral valve has no prolapse. Mild MR. Right-sided chamber is grossly normal. Mild TR. TRANSINT:[id number] Voice Confirmation ID: [id number] DOCUMENT ID: [id number] ECHOCARDIOGRAM REPORT [id number] MICHELE PARK GREGORY A MD at 1109 CC: [id number] DICTATION DATE: 09/03/20 1245 JAVA WEB DEVELOPER: 09/03/20 1519 ADM IN [place] [id number] [place] [id number]
[2020-09-05 12:30] VITALS: BP 137/62
--- NOTE | 2020-09-05 18:34 | NUR ---
PATIENT IS WITHOUT CHANGE. SHE IS WITHOUT DISTRESS. STATES SHE IS DIZZY AT TIMES. SHE WANTS MEDICATIONS SHE HAD BEFORE WITH THIS PROBLEM.MECLAZINE.
[2020-09-05 18:35] VITALS: BP 156/63
[2020-09-05 21:05] VITALS: BP 140/64
[2020-09-06 07:29] LABS: BASOPHILS 0.2 % (0-2); EOSINOPHILS 2.8 % (0-7); HEMOGLOBIN 9.6 g/dL (12-16); IMMATURE GRANULOCYTES 0.4 % (0-5); LYMPHOCYTE ABS# 0.87 10x3/uL (1.18-3.74); LYMPHOCYTES 18.6 % (15-50); MCH 26.1 pg (26.0-34.0); MEAN PLATELET VOLUME 10.5 fL (7.4-10.4); MONOCYTES 17.1 % (2-11); NEUTROPHIL ABS# 2.86 10x3/uL (1.56-6.13); NEUTROPHILS 60.9 % (40-80); PLATELET COUNT 297 10x3/uL (130-400); RBC 3.68 10x6/uL (4.00-5.40); RDW 16.1 % (11.5-14.5); WBC 4.7 10x3/uL (4.8-10.8)
[2020-09-06 07:53] LABS: ALBUMIN 2.4 g/dL (3.4-5.0); ANION GAP 9.8 mmol/L (8-16); BILIRUBIN - TOTAL 0.23 mg/dL (0.2-1.3); CALCIUM 8.6 mg/dL (8.5-10.1); CARBON DIOXIDE 26.1 mmol/L (21.0-32.0); CREATININE - SERUM 0.8 mg/dL (0.6-1.3); POTASSIUM - SERUM 3.9 mmol/L (3.5-5.1); PROTEIN - SERUM 5.4 g/dL (6.4-8.2)
--- NOTE | 2020-09-06 09:40 | NUR ---
ALERT AND ORIENTED. ASSESSMENT COMPLETE. DENIES NEEDS. BED LOW. CALL SHULTZ AND PERSONAL ITEMS IN REACH. WILL CONTINUE TO MONITOR.
[2020-09-06 10:26] VITALS: BP 157/54
[2020-09-06 12:13] LABS: SARS-CoV-2 ANTIGEN NEGATIVE- SARS-COV-2 (NEGATIVE)
--- NOTE | 2020-09-06 12:37 | NUR ---
Nutrition follow-up: Pt discused during IDT team meeting. Pt receiving a AHA diet with po intake ~55% of meals labs reviewed Wt: 158# +BM PO intake good at this time Waiting for Rehab Follow-up: 09/12/20
[2020-09-06 15:12] VITALS: BP 123/31
--- NOTE | 2020-09-06 16:06 | NUR ---
IV LEAKING TO PATIENTS RFA. REMOVED WITH TIP INTACT. RESITED TO RIGHT WRIST AFTER THREE ATTEMPTS BY TWO RNS WITH 22 GAUGE.
[2020-09-06 19:30] VITALS: BP 133/51
[2020-09-06 21:01] VITALS: BP 150/54
--- NOTE | 2020-09-06 23:18 | NUR ---
Assumed care of pt after shift report. Pt lying in bed in room and remains A&OX4. Did c/o headache with PRN tylenol given and eff results achieved. Pt did c/o having to have Blood glucose checks and especially every 6 hours. MAX Wolff was on floor and this nurse spoke with him regarding same. BG's changed from every 6 hours to ACHS. Pt did allow BG to be checked.
--- NOTE | 2020-09-07 00:57 | NUR ---
New orders rec'd from regarding pt and BG. Pt continues to c/o pain to all digits from BG checks. Dr. Murray reviewed BG's and pt refusal for checks and ordered fasting sugar once daily. Same updated in system. Dr. Murray verbalized that if additional coverage/interventions needed, will address at that time. SS insulin D/C'd.
--- NOTE | 2020-09-07 06:10 | NUR ---
Pt is in bed resting. Pt verbalized being very pleased to not "Be stuck at midnight" so she could sleep better. Did want BG and thyroid med when awake at 5 am so she may go back to bed and try to sleep more. Same cares provided. In bed resting at this time.
[2020-09-07 06:30] LABS: BASOPHILS 0.5 % (0-2); EOSINOPHILS 3.4 % (0-7); HEMATOCRIT 31.1 % (36.0-48.0); HEMOGLOBIN 9.4 g/dL (12-16); IMMATURE GRANULOCYTES 0.5 % (0-5); LYMPHOCYTE ABS# 1.01 10x3/uL (1.18-3.74); LYMPHOCYTES 22.9 % (15-50); MCH 26.1 pg (26.0-34.0); MCHC 30.2 g/dL (31.0-37.0); MCV 86.4 fL (80.0-100.0); MEAN PLATELET VOLUME 10.7 fL (7.4-10.4); MONOCYTES 18.4 % (2-11); NEUTROPHILS 54.3 % (40-80); PLATELET COUNT 300 10x3/uL (130-400); WBC 4.4 10x3/uL (4.8-10.8)
[2020-09-07 06:47] LABS: ALBUMIN 2.4 g/dL (3.4-5.0); ANION GAP 11.9 mmol/L (8-16); BILIRUBIN - TOTAL 0.23 mg/dL (0.2-1.3); CALCIUM 8.8 mg/dL (8.5-10.1); CARBON DIOXIDE 25.9 mmol/L (21.0-32.0); CREATININE - SERUM 0.8 mg/dL (0.6-1.3); POTASSIUM - SERUM 3.8 mmol/L (3.5-5.1); PROTEIN - SERUM 5.3 g/dL (6.4-8.2)
[2020-09-07 08:36] VITALS: BP 177/72
--- NOTE | 2020-09-07 11:42 | NUR ---
CURRENTLY IN CHAIR, NO DISTRESS NOTED, CONT TO MONITOR VERTIGO,
[2020-09-07 12:08] VITALS: BP 148/64
[2020-09-07 17:06] VITALS: BP 157/68
--- NOTE | 2020-09-07 18:01 | NUR ---
SON HERE TO VISIT WITH PT
--- NOTE | 2020-09-07 19:50 | NUR ---
Assumed care of pt after rounds/report. Pt stated she had a harder day today and attributes same to increased dizziness. Pt did verbalize taking the PRN Meclizine and it being effective for same. Pt also c/o a slight headache and requests PRN tylenol for HS. Pt in bed resting and chatting on phone with son.
[2020-09-07 20:37] VITALS: BP 146/47
--- NOTE | 2020-09-08 05:59 | NUR ---
Pt is in bed resting without c/o pain/discomfort. Walking slowly but with a steady gait to the bathroom from the bed. Staff has remained as a SBA for transfers to ensure safety.
--- NOTE | 2020-09-08 07:43 | NUR ---
resting in bed, no distress noted, cont to monitor weakness and vertigo
[2020-09-08 07:46] LABS: BASOPHILS 0.4 % (0-2); EOSINOPHILS 2.9 % (0-7); HEMATOCRIT 32.6 % (36.0-48.0); HEMOGLOBIN 9.8 g/dL (12-16); IMMATURE GRANULOCYTES 0.4 % (0-5); LYMPHOCYTE ABS# 1.26 10x3/uL (1.18-3.74); LYMPHOCYTES 25.8 % (15-50); MCH 26.1 pg (26.0-34.0); MCHC 30.1 g/dL (31.0-37.0); MCV 86.9 fL (80.0-100.0); MEAN PLATELET VOLUME 10.8 fL (7.4-10.4); NEUTROPHIL ABS# 2.71 10x3/uL (1.56-6.13); NEUTROPHILS 55.5 % (40-80); PLATELET COUNT 312 10x3/uL (130-400); RBC 3.75 10x6/uL (4.00-5.40); WBC 4.9 10x3/uL (4.8-10.8)
[2020-09-08 08:17] LABS: ALBUMIN 2.5 g/dL (3.4-5.0); ANION GAP 12.5 mmol/L (8-16); BILIRUBIN - TOTAL 0.2 mg/dL (0.2-1.3); CALCIUM 8.8 mg/dL (8.5-10.1); CARBON DIOXIDE 26.2 mmol/L (21.0-32.0); CREATININE - SERUM 0.9 mg/dL (0.6-1.3); POTASSIUM - SERUM 3.7 mmol/L (3.5-5.1); PROTEIN - SERUM 5.6 g/dL (6.4-8.2)
[2020-09-08 10:34] VITALS: BP 130/45
[2020-09-08 11:00] VITALS: BP 159/93
[2020-09-08 16:00] VITALS: BP 150/60
--- NOTE | 2020-09-08 18:15 | NUR ---
DAUGHTER HERE TO VISIT, WILL CONTACT CM TOMORROW, FAMILY WANTS PT IN A INPT REHAB
--- NOTE | 2020-09-08 19:33 | NUR ---
Assumed care of pt after report/rounds. Pt remains A&OX4 and denies pain/discomfort. Verbalized having a good day so far. Dtr in to visit and brought patient a cheeseburger from [facility]. In bed resting at this time.
--- NOTE | 2020-09-09 08:19 | NUR ---
AWAKE AND ALERT. ORIENTED X3. NO C/O AT THIS TIME. LUNGS ARE CLEAR BILATERALLY, NO COUGH NOTED. SKIN IS INTACT WITHOUT REDNESS. NO IV ACCESS AT THIS TIME. DENIES NEEDS. WAS UP TO BR PER SELF. VOIDED CLEAR YELLOW URINE WITHOUT DIFFICULTY.
[2020-09-09 09:13] VITALS: BP 122/44
[2020-09-09 09:24] LABS: BASOPHILS 0.3 % (0-2); EOSINOPHILS 2.9 % (0-7); HEMATOCRIT 35.6 % (36.0-48.0); HEMOGLOBIN 10.7 g/dL (12-16); IMMATURE GRANULOCYTES 0.5 % (0-5); LYMPHOCYTE ABS# 1.09 10x3/uL (1.18-3.74); LYMPHOCYTES 17.5 % (15-50); MCHC 30.1 g/dL (31.0-37.0); MCV 86.6 fL (80.0-100.0); MEAN PLATELET VOLUME 10.1 fL (7.4-10.4); MONOCYTES 13.8 % (2-11); NEUTROPHIL ABS# 4.05 10x3/uL (1.56-6.13); PLATELET COUNT 353 10x3/uL (130-400); RBC 4.11 10x6/uL (4.00-5.40); RDW 15.8 % (11.5-14.5)
[2020-09-09 09:25] LABS: WBC 6.2 10x3/uL (4.8-10.8)
[2020-09-09 10:00] LABS: ALBUMIN 2.8 g/dL (3.4-5.0); ANION GAP 14.7 mmol/L (8-16); BILIRUBIN - TOTAL 0.24 mg/dL (0.2-1.3); CALCIUM 8.8 mg/dL (8.5-10.1); CARBON DIOXIDE 26.2 mmol/L (21.0-32.0); CREATININE - SERUM 0.9 mg/dL (0.6-1.3); POTASSIUM - SERUM 3.9 mmol/L (3.5-5.1); PROTEIN - SERUM 5.6 g/dL (6.4-8.2)
--- NOTE | 2020-09-09 10:00 | NUR ---
RESTING QUIETLY IN BED. TOOK AM MEDS WITHOUT DIFFICULTY. DENIES NEEDS.
--- NOTE | 2020-09-09 11:12 | NUR ---
Rehab Prescreen Consult recieved and the chart has been reviewed. She is a good candidate but will require a preauth with her insurance [facility]. Rosa Elena Powers RN Clinical Liaison, Rehab
--- NOTE | 2020-09-09 12:15 | NUR ---
LUNCH SERVED IN ROOM. NO NEEDS NOTED.
[2020-09-09 14:12] VITALS: BP 132/48
--- NOTE | 2020-09-09 15:25 | NUR ---
C/O INDIGESTION. CALLED [facility] APN. NEW ORDERS RECEIVED FOR TUMS.
--- NOTE | 2020-09-09 17:17 | NUR ---
OT NOTE: PT COMPLETED IN ROOM ADL MOB WITH CGA. PT COMPLETED ORAL HYGIENE AND HAIR GROOMING AT SINK LEVEL WITH SBA-CGA. PT COMPLETED SIT TO STAND WITH SBA. PT COMPLETED SITTING BALANCE WITH ADLS REQUIRED SBA-SPV. PT REQUIRED VERBAL CUES FOR INCREASED SAFETY WITH DYNAMIC BALANCE ACTIVITIES. [phone] THANK YOU,JAIDEN ISAACS
[2020-09-09 18:15] VITALS: BP 158/51
--- NOTE | 2020-09-09 18:29 | NUR ---
REPORTED INDIGESTION IMPROVED PROIR TO DINNER. ATE ABOUT 50% OF MEAL. DENIES NEEDS. NO CHANGES NOTED.
[2020-09-09 21:36] VITALS: BP 164/51
--- NOTE | 2020-09-09 22:33 | NUR ---
Assumed care of pt after report/rounds. Pt remains A&OX4 and verbalizes wants/needs clearly, appropriately and without difficulty or hesitation. Denies pain/discomfort. Sitting in chair at bedside chatting on phone on initial entry. Pt now resting in bed.
[2020-09-10] VITALS: BP 145/52
--- NOTE | 2020-09-10 04:52 | NUR ---
Pt remains in bed and resting. Uses call light appropriately to request assist. No c/o pain/discomfort t/o the night.
[2020-09-10 07:23] LABS: BASOPHILS 0.4 % (0-2); EOSINOPHILS 3.1 % (0-7); HEMATOCRIT 32.1 % (36.0-48.0); HEMOGLOBIN 9.7 g/dL (12-16); IMMATURE GRANULOCYTES 0.6 % (0-5); LYMPHOCYTE ABS# 1.05 10x3/uL (1.18-3.74); LYMPHOCYTES 20.5 % (15-50); MCH 25.9 pg (26.0-34.0); MCHC 30.2 g/dL (31.0-37.0); MCV 85.8 fL (80.0-100.0); MEAN PLATELET VOLUME 10.3 fL (7.4-10.4); MONOCYTES 13.9 % (2-11); NEUTROPHIL ABS# 3.15 10x3/uL (1.56-6.13); NEUTROPHILS 61.5 % (40-80); PLATELET COUNT 301 10x3/uL (130-400); RBC 3.74 10x6/uL (4.00-5.40); RDW 15.7 % (11.5-14.5); WBC 5.1 10x3/uL (4.8-10.8)
--- NOTE | 2020-09-10 07:27 | NUR ---
PATIENT AWAKE AND ALERT, NO IV ACSESS, PENDING INS AUTH TO APPROVE PLACEMENT. CHANGED PROTONIX IV TO PO. NO NEEDS VOICED BY PATIENT. CONTINUE WITH PLAN OF CARE
[2020-09-10 07:34] LABS: ALBUMIN 2.5 g/dL (3.4-5.0); ANION GAP 11.7 mmol/L (8-16); BILIRUBIN - TOTAL 0.24 mg/dL (0.2-1.3); CALCIUM 8.7 mg/dL (8.5-10.1); CARBON DIOXIDE 25.8 mmol/L (21.0-32.0); CREATININE - SERUM 0.8 mg/dL (0.6-1.3); POTASSIUM - SERUM 3.5 mmol/L (3.5-5.1); PROTEIN - SERUM 5.7 g/dL (6.4-8.2)
[2020-09-10 08:32] VITALS: BP 144/64
[2020-09-10 13:02] VITALS: BP 146/52
--- NOTE | 2020-09-10 15:54 | NUR ---
OT NOTE: PT COMPLETED ADL MOB WITHIN ROOM WITH CGA. PT COMPLETED HYGIENE TASKS AT SINK LEVEL WITH SBA. PT COMPLETED EOB SITTING BALANCE WITH ADL TASKS. PT DID WELL TODAY. [phone] THANK YOU,JAIDEN ISAACS
[2020-09-10 18:57] VITALS: BP 138/60
--- NOTE | 2020-09-10 19:00 | NUR ---
Received report, alert and oriented x 4, follows instructions, says she's ready to go home tomorrow. Voiced no concerns at this time.
[2020-09-10 20:00] VITALS: BP 132/78
--- NOTE | 2020-09-11 05:49 | MORECARE ---
CASE MANAGEMENT DISCHARGE SUMMARY PATIENT: MICHELE PARK UNIT: [id number] ADM DATE: 08/31/20 AGE: 85 : 35 SEX: F ROOM/BED: D.2203 AUTHOR: MARU CAMACHO PHYSICIAN: REFERRING PHYSICIAN: SANTA CRANDALL MD DATE OF SERVICE: 09/11/20 Discharge Plan Patient Name: MICHELE PARK Facility: [facility]:[place] : 1935 Planned Disposition: Inpatient Rehab Anticipated Discharge Date: Discharge Date: Expected LOS: Initial Reviewer: [email or web address] Initial Review Date: 09/01/2020 Generated: 09/11/20 6:48 am Comments DCP- Discharge Planning Updated by [email or web address]: Brook Pascal on 09/11/20 4:[address] PER PATIENT'S NURSE SHE IS ASKING WHEN SHE WILL GET TO GO TO REHAB, WE ARE PENDING AUTH FROM HER INSURANCE SHE DID COME FROM HOME AND IS CURRENT WITH [facility] Patient Name: MICHELE PARK Page [phone] at 0549 All edits/amendments must be made on the electronic document DICTATION DATE: 09/11/20547 CULTURED MARBLE PRODUCTS MAKER: JAKCIE 09/11/20547 RPT#: [id number] DC DATE: STATUS: ADM IN [facility] [address] [place] [address] END OF REPORT
--- NOTE | 2020-09-11 05:55 | MORECARE ---
CASE MANAGEMENT DISCHARGE SUMMARY PATIENT: MICHELE PARK UNIT: [id number] ADM DATE: 08/31/20 AGE: 85 : 35 SEX: F ROOM/BED: D.2203 AUTHOR: MARU CAMACHO PHYSICIAN: REFERRING PHYSICIAN: SANTA CRANDALL MD DATE OF SERVICE: 09/11/20 Discharge Plan Patient Name: MICHELE PARK Facility: [facility]:[place] : 1935 Planned Disposition: Inpatient Rehab Anticipated Discharge Date: Discharge Date: Expected LOS: Initial Reviewer: [email or web address] Initial Review Date: 09/01/2020 Generated: 09/11/20 6:55 am Comments DCP- Discharge Planning Updated by [email or web address]: Brook Pascal on 09/11/20 4:[address] PER PATIENT'S NURSE SHE IS ASKING WHEN SHE WILL GET TO GO TO REHAB, WE ARE PENDING AUTH FROM HER INSURANCE SHE DID COME FROM HOME AND IS CURRENT WITH [employer] Patient Name: MICHELE PARK Page [phone] at 0555 All edits/amendments must be made on the electronic document DICTATION DATE: 09/11/2055 SEMIAUTOMATIC TAPER OPERATOR: JACKIE 09/11/20554 RPT#: [id number] DC DATE: STATUS: ADM IN [facility] [address] [place] [address] END OF REPORT
[2020-09-11 08:44] VITALS: BP 121/82
[2020-09-11 11:39] LABS: BASOPHILS 0.3 % (0-2); EOSINOPHILS 1.8 % (0-7); HEMATOCRIT 36.1 % (36.0-48.0); HEMOGLOBIN 10.9 g/dL (12-16); IMMATURE GRANULOCYTES 0.3 % (0-5); LYMPHOCYTE ABS# 0.71 10x3/uL (1.18-3.74); LYMPHOCYTES 11.6 % (15-50); MCH 25.8 pg (26.0-34.0); MCHC 30.2 g/dL (31.0-37.0); MCV 85.3 fL (80.0-100.0); MEAN PLATELET VOLUME 10.2 fL (7.4-10.4); MONOCYTES 15.7 % (2-11); NEUTROPHIL ABS# 4.29 10x3/uL (1.56-6.13); NEUTROPHILS 70.3 % (40-80); PLATELET COUNT 336 10x3/uL (130-400); RBC 4.23 10x6/uL (4.00-5.40); RDW 15.7 % (11.5-14.5); WBC 6.1 10x3/uL (4.8-10.8)
[2020-09-11 11:57] LABS: ALBUMIN 2.6 g/dL (3.4-5.0); ANION GAP 13.2 mmol/L (8-16); BILIRUBIN - TOTAL 0.31 mg/dL (0.2-1.3); CALCIUM 8.3 mg/dL (8.5-10.1); CARBON DIOXIDE 25.5 mmol/L (21.0-32.0); POTASSIUM - SERUM 3.7 mmol/L (3.5-5.1); PROTEIN - SERUM 5.3 g/dL (6.4-8.2)
[2020-09-11 12:30] VITALS: BP 110/53
--- NOTE | 2020-09-11 14:03 | NUR ---
Nutrition follow-up: Diet order: low sodium PO intake ~60% average of last 9 meals Labs reviewed Wt: 158# Pt waiting for rehab approval PO intake fair to good at most meals Follow-up: 09/16/20
--- NOTE | 2020-09-11 14:53 | NUR ---
Rehab Note- Received call from [facility] stating that their medical review coordinator has denied the patient an inpatient acute rehab stay that he recommended a SNF placement. Stated that the denial letter will be sent out with the Peer to peer information on it. Notified DAVID Man. Thank you for this referral! Nessa Lundberg RN Clinical Liaison, [facility] Rehab
--- NOTE | 2020-09-11 15:41 | NUR ---
OT NOTE: PT COMPLETED ADL MOB WITH CGA. PT COMPLETED UB DRESSING WITH SETUP. PT REQUIRED MIN A FOR LB DRESSING TO THREAD PANTS. PT REQUIRED TOTAL A WITH MORIAH SOCKS. LB DRESSING IS NEGATIVELY IMPACTED BY KNEE PAIN. 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 PT COMPLETED UB/LB BATHING TASKS WHILE SEATED WITH SETUP. PT IS AT RISK FOR LOSS OF BALANCE WITH DYNAMIC TASKS. PT REQUIRED REST BREAKS. [phone] THANK YOU,JAIDEN ISAACS
[2020-09-11 17:24] VITALS: BP 136/60
--- NOTE | 2020-09-11 18:59 | NUR ---
I have reviewed this patient and I concur with the Shift Assessment completed by the Licensed Practical Nurse today this shift.
[2020-09-11 20:00] VITALS: BP 135/79
[2020-09-12 04:00] VITALS: BP 131/62
[2020-09-12 06:41] LABS: ALBUMIN 2.5 g/dL (3.4-5.0); ANION GAP 13.1 mmol/L (8-16); BILIRUBIN - TOTAL 0.22 mg/dL (0.2-1.3); CALCIUM 8.6 mg/dL (8.5-10.1); CARBON DIOXIDE 26.1 mmol/L (21.0-32.0); POTASSIUM - SERUM 3.2 mmol/L (3.5-5.1); PROTEIN - SERUM 5.5 g/dL (6.4-8.2)
--- NOTE | 2020-09-12 06:42 | NUR ---
Patient had a headache that was managed with tylenol, she appeared to sleep through the night.
[2020-09-12 07:23] LABS: BASOPHILS 0.2 % (0-2); EOSINOPHILS 2.9 % (0-7); HEMATOCRIT 33.3 % (36.0-48.0); HEMOGLOBIN 10.3 g/dL (12-16); IMMATURE GRANULOCYTES 0.3 % (0-5); LYMPHOCYTES 20.7 % (15-50); MCH 26.5 pg (26.0-34.0); MCHC 30.9 g/dL (31.0-37.0); MCV 85.8 fL (80.0-100.0); MEAN PLATELET VOLUME 10.5 fL (7.4-10.4); MONOCYTES 16.4 % (2-11); NEUTROPHIL ABS# 3.44 10x3/uL (1.56-6.13); NEUTROPHILS 59.5 % (40-80); PLATELET COUNT 294 10x3/uL (130-400); RBC 3.88 10x6/uL (4.00-5.40); RDW 15.9 % (11.5-14.5); WBC 5.8 10x3/uL (4.8-10.8)
[2020-09-12 08:31] VITALS: BP 149/76
[2020-09-12 12:12] VITALS: BP 141/52
--- NOTE | 2020-09-12 14:12 | NUR ---
OT NOTE: PT COMPLETED ADL MOB WITH SBA-CGA. PT COMPLETED TOILETING TSF WITH SBA-CGA. PT COMPLETED UB HYGIENE TASKS AT SINK LEVEL WITH SBA. PT COMPLETED UE AROM EXS AT EOB WITH SPV. PT COMPLETED SIT TO STAND WITH SBA-CGA. PT REQUIRED PHYSICAL ASSIST WITH LB TASKS SECONDARY TO REDUCE TRUNK FLEXION. 130-2 BRITTA MCWILLIAMS COTA
[2020-09-12 16:05] VITALS: BP 120/61
--- NOTE | 2020-09-12 19:07 | NUR ---
LYING IN BED AWAKE, ALERT, ORIENTED. RESP EVEN AND UNLABORED ON RA. PT STATES SHE IS DEPRESSED ABOUT NOT BEING ABLE TO GO TO REHAB--NURSE REASSURES. PT DENIES ANY NEEDS AT THIS TIME.
[2020-09-12 20:00] VITALS: BP 161/62
[2020-09-13 04:00] VITALS: BP 135/63
--- NOTE | 2020-09-13 05:30 | NUR ---
LYING IN BED W/EYES CLOSED, AROUSES EASILY W/TACTILE STIMULI. AM MEDS ADMINISTERED/ORDER, PT TOLERATED ALL WELL. ICE WATER BROUGHT TO ROOM/REQUEST, PT DENIES ANY FURTHER NEEDS.
--- NOTE | 2020-09-13 05:54 | MORECARE ---
CASE MANAGEMENT DISCHARGE SUMMARY PATIENT: MICHELE PARK UNIT: [id number] ADM DATE: 08/31/20 AGE: 85 : 35 SEX: F ROOM/BED: D.2203 AUTHOR: MARU CAMACHO PHYSICIAN: REFERRING PHYSICIAN: SANTA CRANDALL MD DATE OF SERVICE: 09/13/20 Discharge Plan Patient Name: MICHELE PARK Facility: [facility]:[place] : 1935 Planned Disposition: Inpatient Rehab Anticipated Discharge Date: Discharge Date: Expected LOS: Initial Reviewer: [email or web address] Initial Review Date: 09/01/2020 Generated: 09/13/20 6:53 am Comments DCP- Discharge Planning Updated by [email or web address]: Brook Pascal on 09/13/20 4:[address] LATE ENTRY 09/12/20 @ 11:30 SPOKE WITH KAMRYN RASHEED FOR A PEER TO PEER FOR INPATIENT REHAB THIS HAS BEEN SET UP FOR [facility] SHRIMP PEELING MACHINE OPERATOR WILL WAIT FOR DETERMINATION DCP- Discharge Planning Updated by [email or web address]: Brook Pascal on 09/11/20 4:[address] PER PATIENT'S NURSE SHE IS ASKING WHEN SHE WILL GET TO GO TO REHAB, WE ARE PENDING AUTH FROM HER INSURANCE SHE DID COME FROM HOME AND IS CURRENT WITH [employer] Last DP export: 09/11/20 4:55 a Patient Name: MICHELE PARK Page [phone] at 0554 All edits/amendments must be made on the electronic document DICTATION DATE: 09/13/20 0554 RESOURCES REPRESENTATIVE: JACKIE 09/13/20 0554 RPT#: [id number] DC DATE: STATUS: ADM IN [facility] [address] [place] [address] END OF REPORT
--- NOTE | 2020-09-13 06:01 | MORECARE ---
CASE MANAGEMENT DISCHARGE SUMMARY PATIENT: MICHELE PARK UNIT: [id number] ADM DATE: 08/31/20 AGE: 85 : 35 SEX: F ROOM/BED: D.2203 AUTHOR: DOUG,DOC PHYSICIAN: REFERRING PHYSICIAN: SANTA CRANDALL MD DATE OF SERVICE: 09/13/20 Discharge Plan Patient Name: MICHELE PARK Facility: [facility]:[place] : 1935 Planned Disposition: Inpatient Rehab Anticipated Discharge Date: Discharge Date: Expected LOS: Initial Reviewer: [email or web address] Initial Review Date: 09/01/2020 Generated: 09/13/20 7:00 am Comments DCP- Discharge Planning Updated by [id number]: Brook Pascal on 09/13/20 4:[address] LATE ENTRY 09/12/20 @ 11:30 SPOKE WITH KAMRYN WITH [facility] FOR A PEER TO PEER FOR INPATIENT REHAB [facility] FOR [facility]ERMINATION DCP- Discharge Planning Updated by [email or web address]: Brook Pascal on 09/11/20 4:[address] PER PATIENT'S NURSE SHE IS ASKING WHEN SHE WILL GET TO GO TO REHAB, WE ARE PENDING AUTH FROM HER INSURANCE SHE DID COME FROM HOME AND [facility] DCPIA - Discharge Planning Initial Assessment Updated by [email or web address]: Brook Pascal on 09/13/20 5:57 am * Is the patient Alert and Oriented? Yes * How many steps to enter\exit or inside your home? * PCP [facility] * Pharmacy [address] * Preadmission Environment Home Alone * ADLs Independent * Equipment Cane Grab Bars Walker * List name and contact numbers for known caregivers / representatives who currently or will assist patient after discharge: CIRILO CRUZ ( DAUGHTER) [phone] * Verbal permission to speak to the caregivers and representatives has been obtained from the patient. N/A * Community resources currently utilized Home Health * Please name any agencies selected above. [facility] * Additional services required to return to the preadmission environment? Yes * Can the patient safely return to the preadmission environment? Yes * Has this patient been hospitalized within the prior 30 days at any hospital? Yes Last DP export: 09/13/20 4:54 a Patient Name: MICHELE PARK Page [phone] at 0601 All edits/amendments must be made on the electronic document DICTATION DATE: 09/13/20599 CHIEF MEDIA OFFICER: JACKIE 09/13/20599 RPT#: [id number] DC DATE: STATUS: ADM IN [facility] [address] [place] [address] END OF REPORT
[2020-09-13 06:07] LABS: ALBUMIN 2.5 g/dL (3.4-5.0); ANION GAP 12.1 mmol/L (8-16); BILIRUBIN - TOTAL 0.34 mg/dL (0.2-1.3); CALCIUM 8.5 mg/dL (8.5-10.1); CARBON DIOXIDE 22.8 mmol/L (21.0-32.0); PROTEIN - SERUM 5.6 g/dL (6.4-8.2)
--- NOTE | 2020-09-13 06:07 | MORECARE ---
CASE MANAGEMENT DISCHARGE SUMMARY PATIENT: MICHELE PARK UNIT: [id number] ADM DATE: 08/31/20 AGE: 85 : 35 SEX: F ROOM/BED: D.2203 AUTHOR: MARU CAMACHO PHYSICIAN: REFERRING PHYSICIAN: SANTA CRANDALL MD DATE OF SERVICE: 09/13/20 Discharge Plan Patient Name: MICHELE PARK Facility: [facility]:[place] : 1935 Planned Disposition: Inpatient Rehab Anticipated Discharge Date: Discharge Date: Expected LOS: Initial Reviewer: [email or web address] Initial Review Date: 09/01/2020 Generated: 09/13/20 7:06 am Comments DCP- Discharge Planning Updated by [email or web address]: Brook Pascal on 09/13/20 5:[address] LATE ENTRY 09/12/20 @ 11:25 Patient Name: MICHLEE PARK Admission Status: ER Accout number: [id number] Admission Date: 08-31-2020 : 1935 Admission Diagnosis:CEREBRAL INFARCTION, UNSPECIFIED Attending: SANTA CRANDALL Current LOS: 13 Anticipated DC Date: Planned Disposition: Inpatient Rehab Primary Insurance: [facility] Discharge Planning Comments: CM met with patient to complete initial dc planning assessment. CM educated patient on the CM role and verbal consent given by patient to complete assessment. Patient lives at home by herself where she states she is independent with her care. At discharge patient plans to return home and feels this is a safe discharge. CM discussed availability of home health, rehab services, and medical equipment. She stated that she this admission she wants to go to rehab this time. That has been denied, but a P2P has been set up and is pending. She states that she has a walker and a cane at home. Her bathroom is handicap friendly. Her Son in law will be her recycle driver home. She is current with [facility]. If denial is still upheld she will dc home and resume HH with [facility]. IMM served and a VANNESA has been obtained. Patient denied known discharge needs at this time. CM will continue to follow and will assist as needed with dc plans/needs. Lot Attendant: Brook Pascal DCP- Discharge Planning Updated by [email or web address]: Brook Pascal on 09/13/20 4:[address] LATE ENTRY 09/12/20 @ 11:30 SPOKE WITH KAMRYN RASHEED FOR A PEER TO PEER FOR INPATIENT REHAB THIS HAS BEEN SET UP FOR [employer] MECHANIC WILL WAIT FOR DETERMINATION DCP- Discharge Planning Updated by [id number]: Brook Pascal on 09/11/20 4:[address] PER PATIENT'S NURSE SHE IS ASKING WHEN SHE WILL GET TO GO TO REHAB, WE ARE PENDING AUTH FROM HER INSURANCE SHE DID COME FROM HOME AND IS CURRENT WITH [facility] DCPIA - Discharge Planning Initial Assessment Updated by [email or web address]: Brook Pascal on 09/13/20 5:57 am * Is the patient Alert and Oriented? Yes * How many steps to enter\exit or inside your home? * PCP [facility] * Pharmacy [address] * Preadmission Environment Home Alone * ADLs Independent * Equipment Cane Grab Bars Walker * List name and contact numbers for known caregivers / representatives who currently or will assist patient after discharge: CIRILO CRUZ ( DAUGHTER) [phone] * Verbal permission to speak to the caregivers and representatives has been obtained from the patient. N/A * Community resources currently utilized Home Health * Please name any agencies selected above. [facility] * Additional services required to return to the preadmission environment? Yes * Can the patient safely return to the preadmission environment? Yes * Has this patient been hospitalized within the prior 30 days at any hospital? Yes Coverage Notice Reviewer: [id number] Jonathon Pascal Notice Issued Date-Time: 09/12/2020 11:25 Notice Type: IM Discharge Notice Notice Delivered To: Patient Relationship to Patient: Nursing Program Director Name: Delivery Method: HAND - Hand Delivered Paula Days: Prior Verbal Notification: Recipient Understood Notice: Yes Recipient Signature: Yes Med Rec Note Co-signed by Attending: Coverage Notice Comment: imm served Reviewer: [email or web address] Jonathon Pascal Notice Issued Date-Time: 09/12/2020 11:25 Notice Type: Patient Choice Letter Notice Delivered To: Patient Relationship to Patient: Nursing Program Director Name: Delivery Method: HAND - Hand Delivered Paula Days: Prior Verbal Notification: Recipient Understood Notice: Yes Recipient Signature: Yes Med Rec Note Co-signed by Attending: Coverage Notice Comment: Last DP export: 09/13/20 5:01 a Patient Name: MICHELE PARK Page [phone] at 0607 All edits/amendments must be made on the electronic document DICTATION DATE: 09/13/20606 HEAD STOCK TRANSFER CLERK: JACKIE 09/13/20606 RPT#: [id number] DC DATE: STATUS: ADM IN [facility] [address] [place] [address] END OF REPORT
[2020-09-13 06:09] LABS: POTASSIUM - SERUM 3.9 mmol/L (3.5-5.1)
[2020-09-13 06:14] LABS: BASOPHILS 0.2 % (0-2); EOSINOPHILS 2.5 % (0-7); HEMATOCRIT 33.9 % (36.0-48.0); HEMOGLOBIN 10.4 g/dL (12-16); IMMATURE GRANULOCYTES 0.5 % (0-5); LYMPHOCYTE ABS# 1.01 10x3/uL (1.18-3.74); LYMPHOCYTES 15.8 % (15-50); MCH 26.2 pg (26.0-34.0); MCHC 30.7 g/dL (31.0-37.0); MCV 85.4 fL (80.0-100.0); MEAN PLATELET VOLUME 10.5 fL (7.4-10.4); MONOCYTES 13.8 % (2-11); NEUTROPHIL ABS# 4.31 10x3/uL (1.56-6.13); NEUTROPHILS 67.2 % (40-80); PLATELET COUNT 304 10x3/uL (130-400); RBC 3.97 10x6/uL (4.00-5.40); RDW 15.6 % (11.5-14.5); WBC 6.4 10x3/uL (4.8-10.8)
[2020-09-13 08:33] VITALS: BP 145/65
--- NOTE | 2020-09-13 12:41 | NUR ---
PT RESTING IN BED WITH EYES OPEN. RESPIRATIONS ARE EVEN AND UNLABORED. PT DENIES PRESENCE OF PAIN/N/V AT THIS TIME. PT REQUESTS SUPPLIES TO TAKE A SHOWER. WILL COMPLY TO PT REQUEST. BED IS IN THE LOWEST POSITION. CALL LIGHT AND BEDSIDE TABLE ARE WITHIN REACH. SIDE RAILS X 2. PT DENIES FURTHER NEEDS. WILL CONT TO MONITOR.
[2020-09-13 14:00] VITALS: BP 133/65
--- NOTE | 2020-09-13 14:50 | NUR ---
OT NOTE: PT COMPLETED ORAL HYGIENE WITH SPV AT SINK LEVEL. PT COMPLETED HAIR GROOMING WITH SPV. PT COMPLETED ADL MOB WITH CGA. PT COMPLETED BUE AROM EXS AT EOB WITH SPV. [phone] BRITTA MCWILLIAMS COTA
[2020-09-13 17:07] VITALS: BP 138/57
[2020-09-13 20:21] VITALS: BP 143/71
--- NOTE | 2020-09-13 20:30 | NUR ---
AWAKE,ALERT.NO COMPLIANTS VOICED. RESP EVEN AND UNLABORED.NO DISTRESS NOTED. CL IN REACH
--- NOTE | 2020-09-14 00:27 | NUR ---
Pt refuses Vitals during the night and has specifically instructed staff to not wake her for same. Following pt wishes.
[2020-09-14 05:26] VITALS: BP 171/90
[2020-09-14 05:38] LABS: BASOPHILS 0.1 % (0-2); EOSINOPHILS 2.1 % (0-7); HEMATOCRIT 33.7 % (36.0-48.0); HEMOGLOBIN 10.3 g/dL (12-16); IMMATURE GRANULOCYTES 0.3 % (0-5); LYMPHOCYTE ABS# 0.91 10x3/uL (1.18-3.74); LYMPHOCYTES 12.6 % (15-50); MCH 26.5 pg (26.0-34.0); MCHC 30.6 g/dL (31.0-37.0); MCV 86.6 fL (80.0-100.0); MEAN PLATELET VOLUME 10.8 fL (7.4-10.4); MONOCYTES 14.5 % (2-11); NEUTROPHIL ABS# 5.11 10x3/uL (1.56-6.13); NEUTROPHILS 70.4 % (40-80); PLATELET COUNT 343 10x3/uL (130-400); RBC 3.89 10x6/uL (4.00-5.40); WBC 7.3 10x3/uL (4.8-10.8)
[2020-09-14 08:10] VITALS: BP 122/56
[2020-09-14] MEDS ORDERED: XARELTO15 MG PO (08:17)
--- NOTE | 2020-09-14 09:49 | NUR ---
PT AWAKE AND ORIENTED SITTING UP ON SIDE OF THE BED. TOOK ALL MEDICATIONS WITHHOUT COMPLICATIONS. NO COMPLAINTS OR CONCERNS AT THIS TIME. PT D/C TO REHAB, PAPERWORK DONE. NO I/V, DRS AWARE. CL IN REACH, SRX1.
[2020-09-14 09:55] LABS: ALBUMIN 2.9 g/dL (3.4-5.0); BILIRUBIN - TOTAL 0.32 mg/dL (0.2-1.3); CALCIUM 8.8 mg/dL (8.5-10.1); CARBON DIOXIDE 25.7 mmol/L (21.0-32.0); CREATININE - SERUM 1.1 mg/dL (0.6-1.3); PROTEIN - SERUM 6.7 g/dL (6.4-8.2)
[2020-09-14 09:56] LABS: ANION GAP 11.9 mmol/L (8-16); POTASSIUM - SERUM 4.6 mmol/L (3.5-5.1)
[2020-09-14 11:59] VITALS: BP 143/71
--- NOTE | 2020-09-14 13:54 | NUR ---
I have reviewed this patient and I concur with the Shift Assessment completed by the Licensed Practical Nurse today this shift.
--- NOTE | 2020-09-14 15:29 | NUR ---
rehab prescreen pt approved for inpatient rehab, auth # [id number] admitted [id number]
--- NOTE | 2020-09-14 16:43 | NUR ---
PT ALERT AND ORIENTED, ESCORTED DOWN TO REHAB VIA WHEELCHIAR.
--- NOTE | 2020-09-16 07:27 | MORECARE ---
CASE MANAGEMENT DISCHARGE SUMMARY PATIENT: MICHELE PARK UNIT: [id number] ADM DATE: 08/31/20 AGE: 85 : 35 SEX: F ROOM/BED: D.2203 AUTHOR: MARU CAMACHO PHYSICIAN: REFERRING PHYSICIAN: SANTA CRANDALL MD DATE OF SERVICE: 09/16/20 Discharge Plan Patient Name: MICHELE PARK Facility: [facility]:[place] : 1935 Planned Disposition: Inpatient Rehab Anticipated Discharge Date: Discharge Date: 09/14/2020 Expected LOS: Initial Reviewer: [email or web address] Initial Review Date: 09/01/2020 Generated: 09/16/20 8:27 am Comments DCP- Discharge Planning Updated by [email or web address]: Brook Pascal on 09/13/20 5:[address] LATE ENTRY 09/12/20 @ 11:25 Patient Name: MICHELE PARK Admission Status: ER Accout number: [id number] Admission Date: 08-31-2020 : 1935 Admission Diagnosis:CEREBRAL INFARCTION, UNSPECIFIED Attending: SANTA CRANDALL Current LOS: 13 Anticipated DC Date: Planned Disposition: Inpatient Rehab Primary Insurance: [facility] Discharge Planning Comments: CM met with patient to complete initial dc planning assessment. CM educated patient on the CM role and verbal consent given by patient to complete assessment. Patient lives at home by herself where she states she is independent with her care. At discharge patient plans to return home and feels this is a safe discharge. CM discussed availability of home health, rehab services, and medical equipment. She stated that she this admission she wants to go to rehab this time. That has been denied, but a P2P has been set up and is pending. She states that she has a walker and a cane at home. Her bathroom is handicap friendly. 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 She is current with [facility]. If denial is still upheld she will dc home and resume HH with [facility]. IMM served and a VANNESA has been obtained. Patient denied known discharge needs at this time. CM will continue to follow and will assist as needed with dc plans/needs. Laboratory Engineer: Brook Pascal DCP- Discharge Planning Updated by [email or web address]: Brook Pascal on 09/13/20 4:[address] LATE ENTRY 09/12/20 @ 11:30 SPOKE WITH KAMRYN WITH [facility] FOR A PEER TO PEER FOR INPATIENT REHAB THIS HAS BEEN SET UP FOR [facility] WILL WAIT FOR DETERMINATION DCP- Discharge Planning Updated by [email or web address]: Brook Pascal on 09/11/20 4:[address] PER PATIENT'S NURSE SHE IS ASKING WHEN SHE WILL GET TO GO TO REHAB, WE ARE PENDING AUTH FROM HER INSURANCE SHE DID COME FROM HOME AND IS CURRENT WITH [facility] DCPIA - Discharge Planning Initial Assessment Updated by [email or web address]: Brook Pascal on 09/13/20 5:57 am * Is the patient Alert and Oriented? Yes * How many steps to enter\exit or inside your home? * PCP KRAUSE * Pharmacy [address] * Preadmission Environment Home Alone * ADLs Independent * Equipment Cane Grab Bars Walker * List name and contact numbers for known caregivers / representatives who currently or will assist patient after discharge: CIRILO CRUZ ( DAUGHTER) [phone] * Verbal permission to speak to the caregivers and representatives has been obtained from the patient. N/A * Community resources currently utilized Home Health * Please name any agencies selected above. [facility] * Additional services required to return to the preadmission environment? Yes * Can the patient safely return to the preadmission environment? Yes * Has this patient been hospitalized within the prior 30 days at any hospital? Yes Coverage Notice Reviewer: [id number] Jonathon Pascal Notice Issued Date-Time: 09/12/2020 11:25 Notice Type: IM Discharge Notice Notice Delivered To: Patient Relationship to Patient: Mixed Livestock Farmer Name: Delivery Method: HAND - Hand Delivered Paula Days: Prior Verbal Notification: Recipient Understood Notice: Yes Recipient Signature: Yes Med Rec Note Co-signed by Attending: Coverage Notice Comment: imm served Reviewer: [email or web address] Pascal Notice Issued Date-Time: 09/12/2020 11:25 Notice Type: Patient Choice Letter Notice Delivered To: Patient Relationship to Patient: Mixed Livestock Farmer Name: Delivery Method: HAND - Hand Delivered Paula Days: Prior Verbal Notification: Recipient Understood Notice: Yes Recipient Signature: Yes Med Rec Note Co-signed by Attending: Coverage Notice Comment: Last DP export: 09/13/20 5:07 a Patient Name: MICHELE PARK Page [id number] at 0727 All edits/amendments must be made on the electronic document DICTATION DATE: 09/16/20726 TEST RACK OPERATOR: JACKIE 09/16/20726 RPT#: [id number] DC DATE:09/14/20 STATUS: DIS IN [facility] [address] [place] [address] END OF REPORT
== END 2020-09-14 16:45 | disposition home health service (06) | DRG 69 ==
LOC: D.ER 19:22 → D.MS 23:12 → D.EDHOLD 23:12 → D.ICU 23:12 → D.MS 09-04 16:52
PROVIDERS: Family Medicine; ADMIT Family Medicine; ATTEND Family Medicine
DX: G45.0 Vertebro-basilar artery syndrome (principal); I50.20 Unspecified systolic (congestive) heart failure; E87.1 Hypo-osmolality and hyponatremia; G81.90 Hemiplegia, unspecified affecting unspecified side; E03.9 Hypothyroidism, unspecified; E78.5 Hyperlipidemia, unspecified; I25.10 Atherosclerotic heart disease of native coronary artery without angina pectoris; I11.0 Hypertensive heart disease with heart failure; Z79.84 Long term (current) use of oral hypoglycemic drugs; E83.42 Hypomagnesemia; E11.65 Type 2 diabetes mellitus with hyperglycemia; D72.829 Elevated white blood cell count, unspecified; H55.00 Unspecified nystagmus; R47.1 Dysarthria and anarthria; R29.810 Facial weakness; I48.91 Unspecified atrial fibrillation

== ENCOUNTER 2020-09-14 16:01 | Inpatient (IN) | payer OTHER ==
[~2020-09-14] VITALS: Ht 162.6 cm; Wt 76.2 kg
[~2020-09-14 16:01] MED LIST changes: +BAYER CHEWABLE81 MG PO; +DITROPAN XL 1010 MG PO
[2020-09-14 16:53] VITALS: BP 149/87; BMI 28.9
--- NOTE | 2020-09-14 19:00 | NUR ---
RECEIVED PT SITTING UP IN BED VISITING WITH FAMILY. ALERT AND ORIENTED X4. DENIES ANY PAIN OR NEEDS. NO IV OR O2 NOTED. NO DISTRESS NOTED. CALL LIGHT AND WATER WITHIN REACH. FALL PRECAUTIONS IN PLACE. CPOC
[2020-09-14 20:21] VITALS: BP 142/53
--- NOTE | 2020-09-14 20:43 | NUR ---
ASSISTED PT TO RESTROOM WITH SBA USING WALKER. SUPERVISED PT WHILE PT PERFORMED ORAL HYGIENE AND FACIAL GROOMING. STEADY GAIT AND BALANCE NOTED. PT USES WALKER WITHOUT DIFFICULTY.
--- NOTE | 2020-09-14 23:18 | NUR ---
PT LYING IN BED ON RIGHT SIDE EYES CLOSED RESTING. RR EVEN AND UNLABORED. CALL LIGHT WITHIN REACH. CPOC
--- NOTE | 2020-09-15 01:43 | NUR ---
PT LYING IN BED SUPINE EYES CLOSED RESTING. HOB ELEVATED. NO DISTRESS NOTED. CALL LIGHT WITHIN REACH. CPOC
--- NOTE | 2020-09-15 04:06 | NUR ---
PT LYING IN BED ON LEFT SIDE EYES CLOSED RESTING. RR EVEN AND UNLABORED. CALL LIGHT WITHIN REACH. GURVINDER ALARM ON. CPOC
[2020-09-15 09:35] VITALS: BP 155/79
--- NOTE | 2020-09-15 12:31 | NUR ---
PT SITTING ON THE SIDE OF HER BED EATING LUNCH. SHE DENIES PAIN OR NEEDS. HER BED IS LOW, BED ALARM ON AND CALL LIGHT IS WITHIN REACH. SHE IS ABLE TO MAKE HER NEEDS KNOWN. WILL CONTINUE TO MONITOR.
--- NOTE | 2020-09-15 18:45 | NUR ---
RECEIVED PT SITTING UP IN BED VISITING FAMILY. ALERT AND ORIENTED X4. DENIES ANY NEEDS OR PAIN. NO DISTRESS NOTED. CALL LIGHT AND WATER WITHIN REACH. FALL PRECAUTIONS IN PLACE. PT IS NO LONGER ON PUI PRECAUTIONS PER DR. CASEY. CPOC
[2020-09-15 20:25] VITALS: BP 165/55
--- NOTE | 2020-09-15 23:20 | NUR ---
PT LYING IN BED ON LEFT SIDE EYES CLOSED RESTING. HOB ELEVATED. RR EVEN AND UNLABORED. CALL LIGHT WITHIN REACH. CPOC
--- NOTE | 2020-09-16 03:02 | NUR ---
PT LYING IN BED ON RIGHT SIDE EYES CLOSED RESTING. NO DISTRESS NOTED. CALL LIGHT WITHIN REACH. CPOC
--- NOTE | 2020-09-16 05:45 | NUR ---
PT LYING IN BED ON LEFT SIDE EYES CLOSED RESTING. EASILY AROUSED WITH STIMULI. EARLY AM MEDS ADMININSTERED WITHOUT DIFFICULTY. TOILETING OFFERED PT DENIES NEED. NO NEEDS OR PAIN VOICED. CALL LIGHT AND WATER WITHIN REACH. FALL PRECAUTIONS IN PLACE. CPOC
[2020-09-16 07:46] VITALS: BP 171/72
--- NOTE | 2020-09-16 08:00 | NUR ---
SHIFT ASSMT COMPLETED.CL IN REACH.DENIES NEEDS.EATING BREAKFAST.SITTING UP IN CHAIR.STATES ALREADY DONE AM CARE.WILL HAVE HER SIGN AN ALARM WAIVER.SHE IS INDEPENDENT IN ROOM WITH WALKER.
[2020-09-16 10:45] VITALS: BMI 28.8
--- NOTE | 2020-09-16 12:00 | NUR ---
SITTING UP EATING LUNCH.
--- NOTE | 2020-09-16 12:25 | NUR ---
CALLED CONSULT AND SPOKE WITH KIERSTEN MORELOS.
--- NOTE | 2020-09-16 15:02 | NUR ---
PATIENT ADMITS TO REHAB FROM ACUTE FLOOR. HER PCP IS DR. KRAUSE. DME AT HOME IS A CANE AND A WALKER. SHE IS CLIENT OF [facility]. WILL CONTINUE TO FOLLOW WITH PATIENT.
--- NOTE | 2020-09-16 15:04 | NUR ---
DISCHARGE PLANS ARE FOR HER TO RETURN TO HER HOME AND RESUME HOME HEALTH.
--- NOTE | 2020-09-16 19:15 | NUR ---
RECIEVED PT RESTING QUIETLY IN BED NO DISTRESS NOTED. BED ALARM WAIVER ON CHART. RESP EVEN AND UNLABORED. CL IN REACH. CPOC
[2020-09-16 20:05] VITALS: BP 168/85
--- NOTE | 2020-09-17 01:25 | NUR ---
I have reviewed this patient and I concur with the Shift Assessment completed by the Licensed Practical Nurse today this shift.
[2020-09-17 07:59] LABS: ANION GAP 10.3 mmol/L (8-16); CALCIUM 8.9 mg/dL (8.5-10.1); CARBON DIOXIDE 27.5 mmol/L (21.0-32.0); CREATININE - SERUM 1.1 mg/dL (0.6-1.3); POTASSIUM - SERUM 3.8 mmol/L (3.5-5.1)
[2020-09-17 08:00] VITALS: BP 145/85
[2020-09-17 08:18] LABS: BASOPHILS 0.2 % (0-2); EOSINOPHILS 1.6 % (0-7); HEMATOCRIT 32.7 % (36.0-48.0); IMMATURE GRANULOCYTES 0.4 % (0-5); LYMPHOCYTE ABS# 0.77 10x3/uL (1.18-3.74); LYMPHOCYTES 15.2 % (15-50); MCH 25.8 pg (26.0-34.0); MCHC 30.6 g/dL (31.0-37.0); MCV 84.3 fL (80.0-100.0); MEAN PLATELET VOLUME 10.5 fL (7.4-10.4); MONOCYTES 16.2 % (2-11); NEUTROPHIL ABS# 3.35 10x3/uL (1.56-6.13); NEUTROPHILS 66.4 % (40-80); PLATELET COUNT 287 10x3/uL (130-400); RBC 3.88 10x6/uL (4.00-5.40); RDW 15.3 % (11.5-14.5); WBC 5.1 10x3/uL (4.8-10.8)
[2020-09-17 09:05] VITALS: Ht 162.6 cm; Wt 76.2 kg
--- NOTE | 2020-09-17 19:15 | NUR ---
RECEIVED PT LYING IN BED WATCHING TV.CL IN REACH. DENIES NEEDS AT THIS TIME. BED IN LOW SIDE RAILS X2. LUNGS CLEAR. BOWEL ACTIVE X4. A/O X4. RESP EVEN AND UNLABORED. BED ALARM WAIVER ON CHART. CPOC
[2020-09-17 19:20] VITALS: BP 174/86
--- NOTE | 2020-09-18 05:03 | NUR ---
I have reviewed this patient and I concur with the Shift Assessment completed by the Licensed Practical Nurse today this shift.
[2020-09-18 06:37] LABS: BASOPHILS 0.2 % (0-2); EOSINOPHILS 1.7 % (0-7); HEMATOCRIT 35.1 % (36.0-48.0); HEMOGLOBIN 10.8 g/dL (12-16); IMMATURE GRANULOCYTES 0.4 % (0-5); LYMPHOCYTE ABS# 0.85 10x3/uL (1.18-3.74); LYMPHOCYTES 16.1 % (15-50); MCHC 30.8 g/dL (31.0-37.0); MCV 84.6 fL (80.0-100.0); MEAN PLATELET VOLUME 10.5 fL (7.4-10.4); MONOCYTES 12.9 % (2-11); NEUTROPHIL ABS# 3.63 10x3/uL (1.56-6.13); NEUTROPHILS 68.7 % (40-80); PLATELET COUNT 328 10x3/uL (130-400); RBC 4.15 10x6/uL (4.00-5.40); RDW 15.5 % (11.5-14.5); WBC 5.3 10x3/uL (4.8-10.8)
[2020-09-18 06:44] LABS: ANION GAP 11.3 mmol/L (8-16); CALCIUM 9.3 mg/dL (8.5-10.1); CARBON DIOXIDE 27.5 mmol/L (21.0-32.0); CREATININE - SERUM 0.9 mg/dL (0.6-1.3); POTASSIUM - SERUM 3.8 mmol/L (3.5-5.1)
[2020-09-18 07:27] VITALS: BP 144/69
--- NOTE | 2020-09-18 09:30 | NUR ---
SHE IS ALERT, SETTING UP IN THE CHAIR. TOOK HER MEDICATIONS WITHOUT ANY PROBLEMS. THE CALL LIGHT IS WITHIN REACH.
--- NOTE | 2020-09-18 19:15 | NUR ---
RECIEVED PT SITTING ON SIDE OF BED. CL IN REACH. DENIES NEEDS AT THIS TIME. BED IN LOW SIDE RAILS X2. A/O X4. LUNGS CLEAR. BOWEL ACTIVE X4. BED ALARM WAIVER ON CHART. RESP EVEN AND UNLABORED. CPOC
[2020-09-18 20:29] VITALS: BP 144/99
--- NOTE | 2020-09-19 02:06 | NUR ---
I have reviewed this patient and I concur with the Shift Assessment completed by the Licensed Practical Nurse today this shift.
[2020-09-19 08:06] VITALS: BP 134/69
--- NOTE | 2020-09-19 09:00 | NUR ---
PT RESTING IN BED WITH EYES OPEN CALL LIGHT IN REACH WILL MONITER
--- NOTE | 2020-09-19 15:09 | NUR ---
CARE TEAM MEETING: PATIENT IS DOING WELL IN THERAPY. HER TENATIVE DC DATE IS 09/25/20. WILL CONTINUE TO FOLLOW WITH PATIENT.
--- NOTE | 2020-09-19 18:20 | NUR ---
PT RESTING IN BED WITH EYES OPEN CALL LIGHT IN REACH NO PROBLEMS WILL MONITER
[2020-09-19 20:28] VITALS: BP 141/56
--- NOTE | 2020-09-20 02:33 | NUR ---
PT IS RESTING WITH EYES CLOSED. RESPIRATIONS ARE EVEN AND UNLABORED. SHE SIGNED THE BED ALARM WAIVER SO BED ALARM IS OFF. BED IS LOW AND CALL LIGHT WITHIN REACH.
[2020-09-20 07:52] LABS: ANION GAP 11.7 mmol/L (8-16); CALCIUM 8.5 mg/dL (8.5-10.1); CARBON DIOXIDE 25.1 mmol/L (21.0-32.0); CREATININE - SERUM 0.8 mg/dL (0.6-1.3); POTASSIUM - SERUM 3.8 mmol/L (3.5-5.1)
[2020-09-20 08:00] VITALS: BP 149/79
--- NOTE | 2020-09-20 08:00 | NUR ---
PT RESTING IN BED WITH EYES OPEN CALL LIGHT IN REACH NO PROBLEMS WILL MONITER
[2020-09-20 08:34] LABS: BASOPHILS 0.2 % (0-2); EOSINOPHILS 1.6 % (0-7); HEMATOCRIT 29.6 % (36.0-48.0); HEMOGLOBIN 9.3 g/dL (12-16); IMMATURE GRANULOCYTES 0.2 % (0-5); LYMPHOCYTE ABS# 0.85 10x3/uL (1.18-3.74); LYMPHOCYTES 16.7 % (15-50); MCH 26.3 pg (26.0-34.0); MCHC 31.4 g/dL (31.0-37.0); MCV 83.6 fL (80.0-100.0); MEAN PLATELET VOLUME 10.4 fL (7.4-10.4); MONOCYTES 17.5 % (2-11); NEUTROPHIL ABS# 3.25 10x3/uL (1.56-6.13); NEUTROPHILS 63.8 % (40-80); PLATELET COUNT 242 10x3/uL (130-400); RBC 3.54 10x6/uL (4.00-5.40); RDW 15.3 % (11.5-14.5); WBC 5.1 10x3/uL (4.8-10.8)
--- NOTE | 2020-09-20 10:31 | NUR ---
NUTRITION FOLLOW UP: COMMENTS: Patient ate 100% of breakfast this am. Patient was getting her hair done during visit and did not disturb patient. DIET: ADA/AHA diet PO INTAKE: 71% average for last 10 meals BM: x 1 on 09/18 WEIGHT: Sep 14-168 lbs, September 16-168 lbs (No recent wt changes) SIG MEDS: Tums, Metformin, Pravastatin, Vit D, Synthroid SIG LABS: Glucose-139, 155, 152 other labs reviewed RECOMMENDATIONS: Continue current diet Offer nutritional supplements if PO intake becomes <50% avg RD TO FOLLOW UP ON 09/24
--- NOTE | 2020-09-20 18:09 | NUR ---
PT RESTING IN BED WITH EYES OPEN CALL LIGHT IN [place] PROBLEMS WILL MONITER
[2020-09-20 19:36] VITALS: BP 140/81
--- NOTE | 2020-09-20 20:00 | NUR ---
PATIENT RECEIVED SITTING UP IN BED WATCHING TV. ASSESSMENT & VITAL SIGNS DONE. NO C/O PAIN OR DISTRESS AT THIS TIME. CALL LIGHT & WALKER WITHIN REACH. WILL CONTINUE TO MONITOR.
--- NOTE | 2020-09-20 22:50 | NUR ---
PATIENT C/O HEARTBURN, PATIENT STATED "IT'S FROM MY GLUCOPHAGE TAKEN SO LATE." PATIENT ASKED "DO YOU WANT ME TO LEAVE DR. CASEY A NOTE ABOUT GLUCOPHAGE?" PATIENT STATED "NO I WILL ASK MY DR WHEN I LEAVE." BED LOW. CALL LIGHT & SIDETABLE WITHIN REACH. WILL CONTINUE TO MONITOR.
--- NOTE | 2020-09-20 23:00 | NUR ---
WHILE ON ROUNDS PATIENT TUMS EFFECTIVE. PATIENT EYES CLOSED. RESPIRATIONS 18 & EVEN. BED LOW. CALL LIGHT WITHIN REACH. WILL CONTINUE TO MONITOR.
--- NOTE | 2020-09-21 01:18 | NUR ---
I have reviewed this patient and I concur with the Shift Assessment completed by the Licensed Practical Nurse today this shift.
--- NOTE | 2020-09-21 02:05 | NUR ---
PATIENT LIGHT ON. THIS NURSE WENT TO ROOM. PATIENT AMBULATING WITH WALKER TO BATHROOM. VOID & BM. PATIENT WASHED HANDS & RETURNED TO LOW BED. SIDETABLE & CALL LIGHT WITHIN REACH. WILL CONTINUE TO MONITOR.
--- NOTE | 2020-09-21 07:47 | NUR ---
PATIENT IS ALERT/ORIENT. CALL LIGHT WITHIN REACH. VOICES NO NEEDS AT THIS TIME. WILL CONTINUE WITH PLAN OF CARE
[2020-09-21 10:21] VITALS: BP 140/71
--- NOTE | 2020-09-21 13:57 | NUR ---
PATIENT HAS SIGNED A BED/CHAIR ALARM WAVIOR. STEADY GAIT WITH WHEELED WALKER. USING WHEELED WALKER TO WALK AROUND IN ROOM.
--- NOTE | 2020-09-21 14:53 | NUR ---
I have reviewed this patient and I concur with the Shift Assessment completed by the Licensed Practical Nurse today this shift.
--- NOTE | 2020-09-21 17:46 | NUR ---
PATIENT SITTING UP ON THE SIDE OF THE BED TO EAT DINNER. VOICES NO NEEDS AT THIS TIME.
[2020-09-21 20:02] VITALS: BP 146/68
--- NOTE | 2020-09-21 20:20 | NUR ---
PATIENT RECEIVED LAYING ON LEFT SIDE. ASSESSMENT & VITAL SIGNS DONE. NO C/O PAIN OR DISTRESS. BED LOW. CALL LIGHT WITHIN REACH. WILL CONTINUE TO MONITOR.
--- NOTE | 2020-09-21 23:29 | NUR ---
PATIENT USED CALL LIGHT FOR ASSIST. PATIENT HAS PAIN LEVEL 7/10 TO LOWER BACK & RIGHT HIP AREA. PATIENT GIVEN PAIN MEDICATION. WILL CONTINUE TO MONITOR.
--- NOTE | 2020-09-22 05:10 | NUR ---
I have reviewed this patient and I concur with the Shift Assessment completed by the Licensed Practical Nurse today this shift.
--- NOTE | 2020-09-22 09:00 | NUR ---
SHE IS ALERT, TALKING. NO PROBLEMS TAKING HER MEDICATIONS. SHE IS WEARING HER SUPPORT HOES, WITH HER LEGS ELEVATED ON THE BED. SHE DENIES ANY PAIN. THE CALL LIGHT IS WITHIN REACH.
[2020-09-22 13:28] VITALS: BP 144/89
[2020-09-22 19:00] VITALS: BP 100/64
--- NOTE | 2020-09-22 20:25 | NUR ---
PATIENT RECEIVED SITTING UP IN BED. ASSESSMENT & VITAL SIGNS DONE. NO C/O PAIN OR DISTRESS AT THIS TIME. BED LOW. BEDSIDE TABLE & CALL LIGHT WITHIN REACH. WILL CONTINUE TO MONITOR.
--- NOTE | 2020-09-23 00:33 | NUR ---
I have reviewed this patient and I concur with the Shift Assessment completed by the Licensed Practical Nurse today this shift.
--- NOTE | 2020-09-23 02:33 | NUR ---
PATIENT EYES CLOSED. RESPIRATIONS 18 & EVEN. BED LOW. BEDSIDE TABLE & CALL LIGHT WITHIN REACH. WILL CONTINUE TO MONITOR.
--- NOTE | 2020-09-23 07:38 | NUR ---
PT RESTING IN BED WITH EYES OPEN CALL LIGHT IN REACH WILL MONITER
[2020-09-23 07:51] VITALS: BP 177/97
[2020-09-23] MEDS ORDERED: XARELTO20 MG PO (08:58)
[2020-09-23] MEDS ORDERED: GLUCOPHAGE500 MG PO ×2 (08:59)
[2020-09-23] MEDS ORDERED: BETAPACE 80 MG80 MG PO (08:59)
[2020-09-23] MEDS ORDERED: VESICARE5 MG PO (09:00)
--- NOTE | 2020-09-23 09:00 | RHP ---
PATIENT: MICHELE PARK MEDICAL RECORD: [id number] ACCOUNT: [id number] LOCATION:[facility]12 : [birth year] ADMISSION DATE: 09/14/20 REHABILITATION HISTORY AND PHYSICAL EXAMINATION POST ADMISSION PHYSICIAN EXAMINATION POST ADMISSION PHYSICAL EXAMINATION AND HISTORY AND PHYSICAL ADMITTING DIAGNOSIS: CVA. HISTORY OF PRESENT ILLNESS: The patient is an 85-year-old female patient who presented to the ED with a past history of a CVA, diabetes, hypothyroidism, hypertension, hyperlipidemia, known coronary artery disease, chronic back pain, osteoarthritis. The patient was brought to the ED as a stroke alert. EMS reported that she had some mental status changes. She had been hospitalized recently for syncope with abnormal heart rate and was discharged from the hospital on 08/15/2020. At that time, a VQ scan was negative for PE. She was admitted with acute CVA. Dr. Ahuja saw her during her stay. She had acute onset of confusion, lethargy, left-sided facial weakness with staff noting extremity weakness. The patient has got a history of stroke in the past. The patient had an MRI, which did not demonstrate an acute ischemic stroke. There was moderate atrophy and some small vessel disease. CT angiography showed some tortuous vessels, but only 50% stenosis. The patient reports that she has had some significant improvement since her initial lethargy and poor responsiveness noted in the ICU. The patient is now will arouse to verbal stimuli. She has had some right-sided weakness, but this has improved. Her heart rate and cardiac status has been followed throughout her stay by cardiology. She lives at home by herself where she states she has been independent with all of her care. At discharge, she would like to return home and feels safe there by herself. Case management discussed availability of home health, rehabilitation services, medical equipment. She stated that she wants to go to the rehab at this time and hopefully will go home from here. Her bathroom is handicapped friendly. Her son-in-law will be able to drive her home. She uses [employer]. COMORBIDITIES: Include CVA, diabetes, leukocytosis, history of V-tach, known coronary artery disease, hypothyroidism, chronic back pain, incontinence, ulcerative colitis, hyperlipidemia, hypertension, hypothyroidism. PAST MEDICAL HISTORY: Significant for thyroid problems, gallbladder problems. She has had osteoarthritis. PAST SURGICAL HISTORY: Includes bilateral knee replacement. She has had stent to her left anterior descending. ALLERGIES: PENICILLIN, POTASSIUM, CODEINE, HYDROCODONE, AND COCONUT OIL. CURRENT MEDICATIONS: Include Questran 1 packet daily, Pravachol 10 mg daily, oxybutynin 10 mg daily, Flonase 1 spray daily, vitamin D 5000 units daily, aspirin chewable 81 mg daily, Synthroid 150 mcg daily, Humaira 60 mg b.i.d., Betapace 40 mg b.i.d., metformin 500 mg b.i.d., and Xarelto 15 mg daily. HABITS: No alcohol or tobacco use. FAMILY HISTORY: Noncontributory. HISTORY AND PHYSICAL [id number] MICHELE PARK SOCIAL HISTORY: The patient hopes to return back to home and get back to her prior level of functioning. REVIEW OF SYSTEMS: GENERAL: Does complain of weakness and fatigue. HEENT: Denies cold, cough and congestion. CARDIOVASCULAR: Denies any chest pain. PHYSICAL EXAMINATION: VITAL SIGNS: Stable, afebrile. GENERAL: A well-developed elderly female, in no acute distress upon exam. HEENT: Normocephalic and atraumatic. Mucosa moist. NECK: Supple. No lymphadenopathy. LUNGS: Clear in upper grey. No wheezing or rales. HEART: Irregular rate and rhythm. ABDOMEN: Soft, benign, nondistended. Positive bowel sounds times 4. EXTREMITIES: No clubbing, cyanosis or edema. NEUROLOGIC: She does have a little bit of decreased strength on her right side as compared to her left. NEUROLOGIC: She does answer most questions appropriately. LABORATORY DATA: Admit labs are not available at this time. ASSESSMENT: This is an 85-year-old female patient admitted to the rehab with a working diagnosis of cerebrovascular accident. The patient has potential to make improvement. We instituted the following multidisciplinary therapies including, not limited to physical, occupational, respiratory, speech, nutritional services, prosthetics and orthotics. Given her complex medical condition and risks for more complications, rehabilitation services cannot be provided at a low level of care such as group home facility. PLAN: 1. Admit to [facility] for inpatient therapy to include the following disciplines; A. Physical therapy to improve gait, all transfer skills and bed mobility to a modified independent level. B. Occupational therapy to improve activities of daily living. C. Case management to help with discharge planning and placement options. D. Nutrition to assist with nutritional needs. E. Rehabilitation nursing to assist in monitoring the patient's underlying medical conditions and to assist with any type of bowel or bladder management. 2. The patient's current medications and medical care will be continued. 3. The patient will be placed on standard fall precautions. 4. We will continue on her Xarelto for blood thinner. 5. I will see her again in the a.m. TRANSINT:[id number] Voice Confirmation ID: [id number] DOCUMENT ID: [id number] KRYSTINA notes whether there has been none or any medical/functional change since admission: - No change since preadmission screen. HISTORY AND PHYSICAL [id number] MICHELE PARK attests patient continues to be appropriate for IRF: - Continues to be appropriate. JANET CASEY MD at 0900 CC: [id number] DICTATION DATE: 09/15/20 1139 GEOTHERMAL FIELD TECHNICIAN: 09/15/20 1452 ADM IN [place] [id number] [place] [address]
[2020-09-23 09:02] LABS: ANION GAP 9.6 mmol/L (8-16); CALCIUM 8.8 mg/dL (8.5-10.1); CARBON DIOXIDE 28.9 mmol/L (21.0-32.0); CREATININE - SERUM 0.8 mg/dL (0.6-1.3); POTASSIUM - SERUM 3.5 mmol/L (3.5-5.1)
[2020-09-23 09:12] LABS: BASOPHILS 0.2 % (0-2); EOSINOPHILS 2.3 % (0-7); HEMATOCRIT 30.9 % (36.0-48.0); HEMOGLOBIN 9.6 g/dL (12-16); IMMATURE GRANULOCYTES 0.2 % (0-5); LYMPHOCYTE ABS# 0.55 10x3/uL (1.18-3.74); LYMPHOCYTES 11.3 % (15-50); MCH 25.9 pg (26.0-34.0); MCHC 31.1 g/dL (31.0-37.0); MCV 83.5 fL (80.0-100.0); MEAN PLATELET VOLUME 10.6 fL (7.4-10.4); NEUTROPHIL ABS# 3.41 10x3/uL (1.56-6.13); PLATELET COUNT 273 10x3/uL (130-400); RDW 15.3 % (11.5-14.5); WBC 4.9 10x3/uL (4.8-10.8)
[2020-09-23 20:00] VITALS: BP 188/89
--- NOTE | 2020-09-24 02:19 | NUR ---
PT RESTING WITH EYES CLOSED. RESPIRATIONS EVEN AND UNLABORED. HER BED ALARM IS OFF SINCE SHE SIGNED THE WAIVER. HER BED IS LOW AND CALL LIGHT IS WITHIN REACH.
--- NOTE | 2020-09-24 07:28 | NUR ---
PT RESTING IN BED WITH EYES OPEN CALL LIGHT IN REACH WILL MONITER
[2020-09-24 08:06] VITALS: BP 112/58
[2020-09-24] MEDS ORDERED: PROTONIX40 MG PO (11:21)
[2020-09-24] MEDS ORDERED: CARDIZEM 90 MG90 MG PO (11:21)
--- NOTE | 2020-09-24 13:50 | NUR ---
PT DISCHARGED TO HOME VIA WHEELCHAIR WITH SON DISCHARGE SUMMARY AND MEDS REVIEWED WITH PT ALL MEDS CALLED TO PHARMACY PT TOLERATED WELL
== END 2020-09-24 14:00 | disposition home health service (06) | DRG 57 ==
LOC: D.REHAB 16:01
PROVIDERS: ADMIT Emergency Medicine; ATTEND Emergency Medicine
DX: I69.30 Unspecified sequelae of cerebral infarction (principal); K51.90 Ulcerative colitis, unspecified, without complications; I50.20 Unspecified systolic (congestive) heart failure; E11.9 Type 2 diabetes mellitus without complications; I25.10 Atherosclerotic heart disease of native coronary artery without angina pectoris; E03.9 Hypothyroidism, unspecified; E78.5 Hyperlipidemia, unspecified; D72.829 Elevated white blood cell count, unspecified; I11.0 Hypertensive heart disease with heart failure; M19.90 Unspecified osteoarthritis, unspecified site

== ENCOUNTER 2020-10-28 11:56 | Day surgery (SDC) | payer OTHER ==
[~2020-10-28] VITALS: Ht 162.6 cm; Wt 75.0 kg
--- NOTE | ~2020-10-28 | HEMODYNAMI ---
PATIENT:MICHELE PARK MEDICAL RECORD: [id number] : 35 LOCATION:[facility] ADMISSION DATE: 10/28/20 Generatedon:114:35 Patient name: MICHELE PARK Patient #: [id number] SSN: [id number] : 1935 Date of study: 10/28/2020 Page: Of Hemodynamic Procedure Report Patient Data Patient Demographics Procedure consent was obtained First Name: MICHELE Gender: Female Last Name: XAVIER : 1935 Middle Initial: SAIShen Age: 85 year(s) Patient #: [id number] Race: SSN: [id number] Additional ID: [id number] Contact details Address: [address] [place] [address] [facility] State: [place] City: [place] Zip code: [address] Past Medical History Allergies Allergen Reaction Date Comments Reported Codeine 09/06/2018 Other allergy 09/13/2018 PCN, POTASSIUM, CODEINE, HYDROCODONE Other allergy 10/28/2020 CODEINE, NORCO, PCN Admission Admission Data Admission Date: 10/28/2020 Admission Time: 11:56 Arrival Date: 10/28/2020 Arrival Time: 0:00 Admit Source: Other Insurance Payor: Private health insurance [facility] #: [id number] Height (in.): 64 BSA: 1.8 (m2) Height (cm.): 162.56 BMI: 28.4 (kg/m2) Weight (lbs.): 165.44 Weight (kg.): 75.04 Lab Results Lab Result Date: 10/28/2020 Lab Result Time: 0:00 Biochemistry Name Units Result Min Max BUN mg/dl 20 --(----)*- 7 18 Creatinine mg/dl 0.9 --(-*--)-- 0.6 1.3 eGFR ml/min 63 *-(----)-- 90 120 NONAFRICAN CBC Name Units Result Min Max Hemoglobin g/dl 10.2 *-(----)-- 13.5 17.5 Procedure Procedure Types Cath Procedure Diagnostic Procedure Cardioversion External Procedure Description Procedure Date Procedure Date: 10/28/2020 Procedure Start Time: 14:27 Procedure End Time: 14:31 Procedure Staff Name Function Simon Sanchez MD Performing Physician Ashley Medina RT Monitor Janell Arteaga RT Scrub Neptali Roland RN Nurse Maximo Hurst CRNA Additional personnel Procedure Data Procedure Complications No complications Procedure Medications Medication Administration Route Dosage Oxygen etCO2 Nasal cannula 2 l/min Refer to Anesthesia Notes for Sedation Medications Hemodynamics Rest BSA: 1.8 (m2) HGB: 10.2 (g/dl) O2 Consumption: Estimated: 244.8 (ml/min) O2 Consumption indexed: Estimated:136 (ml/min/m) Heart Rate: 0 (bpm) Snapshots Pre Cath Intra NCS Post Cath Vital Signs Time Heart Resp SPO2 etCO2 NIBP (mmHg) Rhythm Pain Sedation Rate (ipm) (%) (mmHg) Status Level (bpm) 14:12:59 76 18 92 0 153/93(133) A-Fib 0 (11) 10(A) , No pain 14:17:21 87 16 100 25.3 161/83(127) A-Fib 0 (11) 10(A) , No pain 14:22:27 73 13 100 29.1 154/78(132) A-Fib 0 (11) 10(A) , No pain 14:26:49 80 14 97 30.6 165/79(122) A-Fib 0 (11) 9(A) , No pain 14:31:03 71 22 96 8.9 151/72(114) A-Fib 0 (11) 9(A) , No pain 14:34:19 71 21 98 24.6 134/65(90) A-Fib 0 (11) 9(A) , No pain Medications Time Medication Route Dose Verified Delivered Reason Notes Effective ness by by 14:18:26 Oxygen etCO2 2 Simon Neptali used for Nasal l/min Daniel Roland classroom instructional aide cannula 14:18:29 Refer to Simon Gunderson Anesthesia Daniel Roland RN Notes for Sedation Medications Procedure Log Time Note 13:50:53 Informed consent obtained and on chart 13:51:12 Diagnostic Cath Status : Elective 13:51:26 Arrival Date: 10/28/2020 12:00:00 AM 13:51:27 Admit Source: Other 13:51:30 Insurance Payor : Private health insurance 13:52:09 Patient Height : 64 inches 13:52:13 Patient Weight : 165.44 lbs 13:52:40 Patient allergic to Other allergyCODEINE, NORCO, PCN 14:00:54 Lab Result : eGFR NONAFRICAN 63 ml/min 14:00:54 Lab Result : Hemoglobin 10.2 g/dl 14:00:54 Lab Result : BUN 20 mg/dl 14:00:54 Lab Result : Creatinine 0.9 mg/dl 14:01:07 Procedure Status Cardioversion. 14:01:10 Neptali Roland RN sent for patient. Start room use. 14:01:11 Time tracking: Regular hours (M-F 7:00 - 5:00) 14:01:16 Plan of Care:Hemodynamics will remain stable., Cardiac rhythm will remain stable., Comfort level will be maintained., Respiratory function will remain adequate., Patient/ family verbilizes understanding of procedure., Procedure tolerated without complication., Recovers from procedure without complications.. 14:08:25 Patient received from Pre/Post Procedure Room to CCL 1 Alert and oriented. Tansferred to table in Supine position. 14:08:27 Warm blankets applied, and sandee hugger turned on for patient comfort. 14:08:27 Correct patient and procedure confirmed by team. 14:08:28 ECG and BP/O2 sat monitors applied to patient. 14:11:48 Vital chart was started 14:11:50 Baseline sample Acquired. 14:11:58 Rhythm: atrial fibrillation 14:15:31 Baseline sample Acquired. 14:15:33 Full Disclosure recording started 14:15:38 H&P Date Dictated: 10/28/2020 Within 30 days and on chart., H&P Addendum completed by physician on day of procedure. (MUST COMPLETE FOR ALL OUTPATIENTS). 14:15:39 Pre-procedure instructions explained to patient. 14:15:40 Pre-op teaching completed and patient verbalized understanding. 14:15:46 Family in patients room. 14:15:47 Patient NPO since Midnight. 14:15:50 Is the patient allergic to Iodine/contrast media? No. 14:15:52 Was the patient premedicated? No 14:15:55 Is patient on blood thinner?Yes 14:16:01 ACC The patient was administered the following blood thiners within the last 24 hours: ACCLovenox 14:16:04 Patient diabetic? Yes. 14:16:07 Previous problem with sedation/anesthesia? No ? 14:16:08 Snore? No 14:16:09 Sleep apnea? No 14:16:10 Deviated septum? No 14:16:11 Opens mouth fully? Yes 14:16:12 Sticks out tongue? Yes 14:16:14 Airway obstruction? Yes ? 14:16:17 Dentures? No ? 14:16:28 IV patent on arrival in right antecubital with 0.9% NaCl at [facility]. 14:16:31 Lab results completed and on chart. 14:16:34 Alarms reviewed by R. N. 14:16:34 Sharps counted by scrub and verified by R.N. 14:16:37 Physician arrived 14:16:37 --------ALL STOP TIME OUT------ 14:16:38 Final Timeout: patient, procedure, and site verified with staff and physician. All members of the team are in agreement. 14:16:48 Fire Safety Assessment: C--Open oxygen or nitrous oxide is being used., E--There are other possible contributors. 14:17:43 Physical assessment completed. ASA score P 2 - A patient with mild systemic disease as per Simon Sanchez MD. 14:17:49 Sedation plan: TIVA Medication:Propofol 14:17:54 Maximo Hurst CRNA present and monitoring patient for TIVA. 14:18:04 Quick combo pads placed on patients chest and back. 14:18:06 Defibrillator synced and charged to 200 Joules. 14:18:26 Oxygen 2 l/min etCO2 Nasal cannula was administered by Neptali Roland RN; used for procedure; Verbal order read back and verified. 14:18:29 Refer to Anesthesia Notes for Sedation Medications was administered by Neptali Roland RN; ; Verbal order read back and verified. 14:18:30 Baseline sample Acquired. 14:18:55 Quick Combo opened to sterile field. 14:27:37 Procedure started. 14:28:01 Shock delivered. 14:28:40 Patient cardioverted to sinus rhythm . 14:28:48 Procedure ended.(Physican Out) 14:29:17 Insertion/operative site no bleeding no hematoma. 14:29:21 Post Procedure Pulses reassessed and unchanged 14:29:24 Post procedure rhythm: unchanged. 14:29:32 Post procedure instruction explained to patient.Patient verbalizes understanding. 14:29:33 Patient needs reinforcement of post procedure teaching. 14:29:51 Procedure and supply charges have been captured, reviewed, submitted and are correct. 14:31:01 Procedure Complication : No complications 14:31:03 Vital chart was stopped 14:31:05 Operative report dictated upon procedure completion. 14:31:05 See physician's report for complete and final results. 14:31:09 Report given to Pre/Post Procedure Room. 14:31:11 Procedure ended. 14:31:11 Full Disclosure recording stopped 14:31:16 End room use (Document Last) 14:31:44 End room use (Document Last) 14:31:59 End room use (Document Last) Device Usage Item Manufacture Quantity Catalog Hospital Part Current Minimal Lot# / Name Number Charge Number Stock Stock [facility]# Code [employer] 1 [id number] Combo Signature Audit [place] Stage Time Signature Unsigned Intra-Procedure 10/28/2020 Ashley Medina 2:31:44 PM RT(R) Intra-Procedure 10/28/2020 Neptali Roland RN 2:31:59 PM Intra-Procedure 10/28/2020 Simon Sanchez MD 2:35:[address] [address]
[~2020-10-28 11:56] MED LIST changes: +CARDIZEM 90 MG90 MG PO; +GLUCOPHAGE1000 MG PO; +GLUCOPHAGE500 MG PO; +HCTZ25 MG PO; +PROTONIX40 MG PO; +VESICARE5 MG PO
[2020-10-28] MEDS ORDERED: NEXIUM40 MG PO (12:33)
[2020-10-28 12:50] VITALS: BP 146/55; Ht 162.6 cm; Wt 75.0 kg
[2020-10-28 13:25] LABS: BASOPHILS 0.1 % (0-2); EOSINOPHILS 1.2 % (0-7); HEMATOCRIT 34.2 % (36.0-48.0); HEMOGLOBIN 10.2 g/dL (12-16); IMMATURE GRANULOCYTES 0.5 % (0-5); LYMPHOCYTE ABS# 1.16 10x3/uL (1.18-3.74); LYMPHOCYTES 15.7 % (15-50); MCH 24.4 pg (26.0-34.0); MCHC 29.8 g/dL (31.0-37.0); MCV 81.8 fL (80.0-100.0); MONOCYTES 14.2 % (2-11); NEUTROPHIL ABS# 5.04 10x3/uL (1.56-6.13); NEUTROPHILS 68.3 % (40-80); RBC 4.18 10x6/uL (4.00-5.40); RDW 15.9 % (11.5-14.5); WBC 7.4 10x3/uL (4.8-10.8)
[2020-10-28 13:26] LABS: PLATELET COUNT 384 10x3/uL (130-400)
[2020-10-28 13:36] LABS: INR 2.31 (0.85-1.17); PROTIME 23.6 SECONDS (11.6-15.0)
[2020-10-28 13:49] LABS: ANION GAP 14.1 mmol/L (8-16); CALCIUM 8.4 mg/dL (8.5-10.1); CARBON DIOXIDE 26.8 mmol/L (21.0-32.0); CREATININE - SERUM 0.9 mg/dL (0.6-1.3); POTASSIUM - SERUM 3.9 mmol/L (3.5-5.1)
--- NOTE | 2020-10-28 14:38 | NUR ---
PT ARRIVES TO ROOM 3 VIA STRETCHER S/P CARDIOVERSION. SEE CHAPTER RELATIONS ADMINISTRATOR, PLACED ON MONITORS ALARMS ON , DENIES PAIN OR NEEDS, UP DATE ON PLAN OF CARE GIVEN TO PT
--- NOTE | 2020-10-28 14:45 | NUR ---
DR MINAYA AT BEDSIDE TO VISIT WITH PT
--- NOTE | 2020-10-28 15:00 | NUR ---
PT RESTING QUIETLY, VSS, SR ON MONITOR, DENIES PAIN OR NEEDS, IV INFUSING PER ORDERS, SITTING SEMI FOWLERS , SANDWICH BOX AND PO FLUIDS SERVED, DISCHARGE TEACHING STARTED. QUESTIONS AND CONCERNS ADDRESSED
--- NOTE | 2020-10-28 15:20 | NUR ---
PT SON HERE TO PICK HER UP / UP DATE GIVEN ON PLAN OF CARE, PT VSS, SR, DENIES PAIN OR NEEDS.
--- NOTE | 2020-10-28 15:50 | NUR ---
PT IV REMOVED 22G LEFT ARM CATHETER INTACT 2 X 2 DRESSING PLACED. REMAINS SR WITH NO ECTOPY, DISCHARGE INSTRUCTIONS REVIEWED AND PT VERBALIZED UNDERSTANDING. PT UP TO DRESS WITH ASSISTANCE, AMBULATES TO BATHROOM AND VOIDS WITHOUT DIFFICULTY.
--- NOTE | 2020-10-28 16:15 | NUR ---
PT TAKE TO FAMILY VEHICLE VIA WHEELCHAIR, PT HAS NO PAIN OR NEEDS AT TIME OF DISCHARGE, PT HAS NO QUESTIONS REGARDING DISCHARGE INSTRUCTIONS
== END 2020-10-28 16:15 | disposition home or self-care (01) ==
LOC: D.CATH 11:56
PROVIDERS: ATTEND Internal Medicine Cardiovascular Disease
DX: I48.91 Unspecified atrial fibrillation (principal); I10 Essential (primary) hypertension; I25.10 Atherosclerotic heart disease of native coronary artery without angina pectoris